=== PATIENT | male | born 1960 | race Caucasian/White ===

== ENCOUNTER 2024-12-20 14:52 | Outpatient (AMB) | payer OTHER, SELFPAY ==
--- OUTSIDE RECORDS SUMMARY | 2024-05-22 11:44 | XMS_ITS | Encounter Summary ---
Author Organization [facility] Address 100 [place] [address] Care Team Providers Care Flamer After Lasting Name Role Phone Vlad Archer MD Unavailable Angela Kuo MD Primary Care Provider Angel Cadena MD Unavailable [phone] Chase Tong DDS Unavailable [phone] Jeffy Chandler MD Unavailable Angela Kuo MD Unavailable [phone] Encounter Details Date Type Department Care Team (Late st Contact Info) Description 05/22/2024 10:44 AM EST Hospital Encounter [facility] [address] [place] [phone] Social History Tobacco Use Types Packs/Day Years Used Date Smoking Tobacco: Never Smokeless Tobacco: Never Alcohol Use Standard Drinks/Week Comments Not Currently 1 (1 standard drink = 0.6 oz pur e alcohol) social AHC Utilities Answer Date Recorded In the past 12 months has [employer], gas, oil, or water company threatened to shut off services in your home? No 12/08/2024 Social Connection and Isolat ion Panel [NHANES] Answer Date Recorded In a typical week, how many times do you talk on the phone with family, friends, or neighbors? More than three times a week 12/08/2024 Frequency of Social Gatherin gs with Friends and Family Not on file 12/08/2024 Attends Congregational Services Not on file 12/08 Active Member of Clubs or Organizations Not on f ile 12/08/2024 Attends Club or Organization Meetings Not on danya e 12/08/2024 Are you , , di vorced, , never , or living with a partner? 12/08/2024 AUDIT-C Answer Date Recorded Q1: How often do you have a drink containing alc ohol? Monthly or less 12/08/2024 Q2: How many drinks containi ng alcohol do you have on a typical day when you are drinking? 1 or 2 12/08/2024 Frequency of Binge Drinking Not on file 11/21 Overall Financial Resource Strain (CARDIA) Answe r Date Recorded How hard is it for you to pa y for the very basics like food, housing, medical care, and heating? Not hard at all 07/04/2024 PHQ-2 Answer Date Recorded PHQ-2 Total Score 0 01/20/2024 Hunger Vital Sign Answer Date Recorded Within the past 12 months, y ou worried that your food would run out before you got the money to buy more. Never true 12/09/19 25 Within the past 12 months, t he food you bought just didn't last and you didn't have money to get more. Never true 12/08/2024 PRAPARE - Transportation Answer Date Re corded In the past 12 months, has l ack of transportation kept you from medical appointments or from getting medications? No 11/21 In the past 12 months, has l ack of transportation kept you from meetings, work, or from getting things needed for daily living? No 12/08/2024 Housing Stability Vital Sign Answer Norman e Recorded In the last 12 months, was t here a time when you were not able to pay the mortgage or rent on time? No 12/08/2024 In the past 12 months, how m any times have you moved where you were living? 0 12/08/2024 At any time in the past 12 m [facility], were you homeless or living in a correction (including now)? No 12/08/2024 Physical Activity Answer Date Recorded On average, how many days pe r week do you engage in moderate to strenuous exercise (like a brisk walk)? 0 days 01/20/2024 On average, how many minutes do you exercise per day at this level? 0 min 01/20/2024 Education Answer Date Recorded What is the highest level of school you have completed or the highest degree you have received? 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 Answer Date of Assessment Author Monthly or less 12/08/2024 9:06 AM EDT Wan [facility]red[facility] [employer] * Q2: How many drinks containing alcohol do you have on a typical day when you are drinking? Answer Date of Assessment Author 1 or 2 12/08/2024 9:06 AM EDT [facility] [employer] documented as of this encounter Plan of Treatment Upcoming Encounters Date Type Department Care Team (Late st Contact Info) Description 01/30/2025 3:00 PM EDT Office Visit [facility] [place] 7 [facility] [address] [place] [phone] Jeffy Chandler MD [address] [place] [address] 04/26/2025 9:15 AM EST Office Visit [facility] 100 [facility] [address] [place] [phone] Angela Kuo MD 100 [facility] [address] [place] [address] documented as of this encounter Procedures Procedure Name Priority Date/Time Associated Diagnosis Comments XR CHEST 2 VIEWS STAT 05/22/2024 10:5 1 AM EST Acute cough documented in this encounter Results * XR Chest 2 views (05/22/2024 10:51 AM EST) Anatomical Region Laterality Modality Chest Computed Radiogr aphy 05/22/2024 10:5 2 AM EST Impressions 05/22/2024 10:52 AM EST 1. No radiographic sign of acute cardiopulmonary disease. Narrative 05/22/2024 10:52 AM EST XR CHEST 2 VIEWS 05/22/2024 10:52 AM r/o pneumonia, cough x 2 weeks COMPARISON: 04/15/2019 TECHNIQUE: Frontal and lateral views of the chest. FINDINGS: The lungs are clear. The heart is not enlarged. Mediastinal contours are within normal limits. No pleural effusion present. Skeletal structures are unremarkable. Procedure Note Osei Brewster MD - 05/22/2024 XR CHEST 2 VIEWS 05/22/2024 10:52 AM r/o pneumonia, cough x 2 weeks COMPARISON: 04/15/2019 TECHNIQUE: Frontal and lateral views of the chest. FINDINGS: The lungs are clear. The heart is not enlarged. Mediastinal contours arewithin normal limits. No pleural effusion present. Skeletal structuresare unremarkable. IMPRESSION: 1. No radiographic sign of acute cardiopulmonary disease. Smiley Alonzo IMG DIAGNOSTIC IMAGIN G ORDERABLES Final Result documented in this encounter Visit Diagnoses Not on filedocumented in this encounter Care Teams Flamer After Lasting Relationship Specialty Start Date End Date Angela Kuo MD [address] [place] [address] PCP - General Internal Medicine 12/14/18 Angela Kuo MD [address] [place] [address] PCP - [employer] Commercial Attributed 01/23/24 08/21/24 Vlad Archer MD Wind Turbine Service Technician Cardiovascular Disease 09/07/18 Angel Cadena MD [address] [address] Consulting Provider Surgery, Cardiac 04/07/19 Chase Tong DDS [facility] [place] [address] Dentist Dentistry 04/07/19 Jeffy Chandler MD [address] [place] [address] Primary Wind Turbine Service Technician Cardiovascular Disease 05/14/21 documented as of this encounter
[2024-12-20 14:55] VITALS: BP 84/62; PULSE 74; O2SAT 95; BMI 40.9
--- NOTE | 2024-12-20 14:55 | HO.NEPHOV ---
Vital Signs 12/20/24 14:55 12/20/24 15:17 Height 6 ft 3 in Weight 327 lb BMI 40.9 BP 84/62 L 100/60 Blood Pressure Location Rt brachial Rt brachial Position Sitting Sitting Pulse 74 Pulse Source Pulse Oximeter Pulse Oximetry (%) 95 Oxygen Delivery Method Room Air Intake Visit Reasons: ENP: Abnormal kidney function/ Conf Mail Superintendent Required: No Accompanied by: Self / Same As Patient Allergies No Known Allergies Allergy (Verified 12/20/24 14:57) Medication List - Last Reconciled 12/20/24 by Isaias Barakat MD acetaminophen (Tylenol) 650 mg PO Q4H PRN allopurinol 300 mg PO DAILY amlodipine 10 mg PO DAILY aspirin 81 mg PO DAILY epinephrine (EpiPen) 0.3 mg IM Q10M PRN furosemide (Lasix) 40 mg PO DAILY lisinopril 40 mg PO DAILY lovastatin 40 mg PO DAILY metoprolol tartrate 25 mg PO BID rosuvastatin 40 mg PO DAILY spironolactone 25 mg PO DAILY warfarin 5 mg PO DAILY HPI Comments Details: The patient is a 64-year-old male presenting with the evaluation of kidney function and management of peripheral edema. The patient reports a history of peripheral edema, initially managed with furosemide on an as-needed basis, escalating to daily use due to increased severity of swelling. In March of the previous year, the edema became severe, prompting the addition of spironolactone, which resolved the swelling within two weeks. The patient has a history of hypertension diagnosed approximately 20 years ago, managed with multiple antihypertensive medications, including amlodipine and lisinopril. Blood pressure readings have been stable post-heart surgery five years ago, with occasional concerns when readings exceed 130 mmHg systolic. The patient experienced episodes of angioedema, characterized by lip and tongue swelling, attributed to lisinopril, leading to its discontinuation. The patient was advised to resume lisinopril by a previous physician, despite the history of angioedema. The patient has a history of kidney stones, managed with allopurinol as a prophylactic measure, though the specific type of stones is unknown. The patient recalls the stones being large and requiring intervention for removal. The patient reports a history of sleep apnea, managed with a CPAP machine used nightly. The patient experienced an allergic reaction post-colonoscopy, characterized by hives and facial swelling, managed with Benadryl, leading to a syncopal episode due to dehydration. [facility] Medical History (Updated 12/20/24 @ 15:26 by Isaias Barakat MD) Aneurysm, ascending aorta Aortic stenosis with bicuspid valve Claudication Vitamin D deficiency, unspecified LVH (left ventricular hypertrophy) due to hypertensive disease Uric acid nephrolithiasis Abnormal results of kidney function studies Obstructive sleep apnea (adult) (pediatric) Cardiomegaly Impaired fasting glucose Pure hypercholesterolemia, unspecified Benign essential hypertension Aortic valve disorder Allergic urticaria Surgical History H/O aortic valve replacement Review of Systems Const Denies anorexia, Denies fever(s) and Denies weakness Eyes Denies blurry vision Card Denies no additional complaints and Denies dyspnea Resp Reports no additional complaints, Reports cough and Denies dyspnea GI Denies melena and Denies diarrhea Denies hematuria Musc Denies tingling Skin/Breast Denies rash Neuro Denies focal weakness, Denies tingling, Denies tremor(s) and Denies weakness Physical Exam Vital Signs: Last Vital Signs Pulse 74 12/20/24 14:55 BP 100/60 12/20/24 15:17 Pulse Ox 95 12/20/24 14:55 Oxygen Delivery Method Room Air 12/20/24 14:55 BMI result Body Mass Index 40.9 Const General: comfortable Nutritional Appearance: well nourished Orientation/consciousness: patient oriented x3 HEENT Head: No normal to inspection Mouth: moist mucous membranes Neck Neck: Yes supple and Yes no JVD Resp Auscultation: clear to auscultation bilaterally, no rales and rub present Cardio Jugular venous distension: no JVD Palpation: no palpable S3 and no palpable S4 Heart sounds: no rubs GI Palpation (GI): Soft to palpation and nontender Percussion: No Fluid wave present General: Yes no CVA tenderness Back/Spine/Pelvis Back: no CVA tenderness Skin General skin exam: no rashes or lesions noted Neuro General: patient oriented x3 Extrem General: Yes no pedal edema and No clubbing Assessment & Plan Assessment & Plan (1) Benign essential hypertension: Code(s): I10 - Essential (primary) hypertension Category: Medical (2) CKD (chronic kidney disease): Code(s): N18.9 - Chronic kidney disease, unspecified Category: Medical (3) Sleep apnea: Code(s): G47.30 - Sleep apnea, unspecified Category: Medical Plan The plan includes evaluating the cause of peripheral edema, considering cardiac, renal, or medication-related etiologies. Urine and blood tests will be conducted to assess kidney function and identify potential causes of edema. The patient's blood pressure management will be adjusted by temporarily discontinuing lisinopril for two days, followed by resuming at half the dose, to address low blood pressure and potential renal impact. The patient will be monitored for changes in blood pressure and kidney function, with follow-up scheduled in two weeks. An ultrasound will be arranged to evaluate kidney structure and rule out any abnormalities contributing to the patient's symptoms. The patient will also undergo uric acid level testing to assess the necessity of continuing allopurinol therapy. RTC after work up is completed Orders: Orders Comprehensive Met. Panel 1 Week G47.30 - Sleep apnea, unspecified, I10 - Essential (primary) hypertension, N18.9 - Chronic kidney disease, unspecified Creatinine Urine 1 Week G47.30 - Sleep apnea, unspecified, I10 - Essential (primary) hypertension, N18.9 - Chronic kidney disease, unspecified Uric Acid 1 Week G47.30 - Sleep apnea, unspecified, I10 - Essential (primary) hypertension, N18.9 - Chronic kidney disease, unspecified US renal BI 1 Week G47.30 - Sleep apnea, unspecified, I10 - Essential (primary) hypertension, N18.9 - Chronic kidney disease, unspecified Complete Blood Count no Diff 1 Week G47.30 - Sleep apnea, unspecified, I10 - Essential (primary) hypertension, N18.9 - Chronic kidney disease, unspecified Total Protein Urine Random 1 Week G47.30 - Sleep apnea, unspecified, I10 - Essential (primary) hypertension, N18.9 - Chronic kidney disease, unspecified UA and rflx microscopic 1 Week G47.30 - Sleep apnea, unspecified, I10 - Essential (primary) hypertension, N18.9 - Chronic kidney disease, unspecified Coding Level of Care Code New Pt Level 4 (06881) Diagnoses Benign essential hypertension I10 CKD (chronic kidney disease) N18.9 Sleep apnea G47.30
[2024-12-20 15:17] VITALS: BP 100/60
--- OUTSIDE RECORDS SUMMARY | 2024-12-20 15:36 | XMS_ITS | Clinical Summary ---
Author Organization [facility] Address [address] [facility] [address] Phone Care Team Providers Care Marble Cleaner Name Role Phone Angela Kuo MD Primary Care Provider [phone] Allergies Active Allergy Reactions Criticality Noted Date Comments Fish Containing Products Anaphylaxis High 05/25/2023 Lisinopril Swelling 05/25/2023 Wine Spirit Anaphylaxis High 05/25/2023 Medications allopurinoL (ZYLOPRIM) 300 mg tablet Take 1 tablet (300 mg total) by mouth 1 (one) time each day. 01/02/2022 Active amLODIPine (NORVASC) 10 mg tablet Take 1 tablet (10 mg total) by mouth 1 (one) time each day. 04/20/2023 Active lisinopril (PRINIVIL,ZESTRI L) 40 mg tablet Take 1 tablet (40 mg total) by mouth 1 (one) time each day. 10/20/2022 Active metoprolol tartrate (LOPRESSOR) 25 mg tablet TAKE 1 TABLET EVERY 12 HOURS AROUND THE CLOCK 02/16/2024 Active rosuvastatin (CRESTOR) 40 mg tablet Take 1 tablet (40 mg total) by mouth daily. 02/17/2024 Active warfarin (COUMADIN) 5 mg tablet TAKE 1 TABLET DAILY AT THE SAME TIME 02/16/2024 Active aspirin ([place] Chewable Aspirin) 81 mg chewable tablet Chew 1 tablet (81 mg total) 1 (one) time each day. 12/10/2014 Active furosemide (LASIX) 40 mg tablet Take 1 tablet (40 mg total) by mouth 1 (one) time each day. 07/02/2024 Active spironolactone (ALDACTONE) 25 mg tablet Take 1 tablet (25 mg total) by mouth 1 (one) time each day. 07/02/2024 Active Active Problems Problem Noted Date Diagnosed Date Syncope 06/29/2024 Medical History Medical History Date Comments Kidney stones DX:Kidney stones Hyperlipidemia DX:Hyperlipidemi a Hypertension DX:Hypertension Social History Tobacco Use Types Packs/Day Years Used Date Smoking Tobacco: Never Alcohol Use Standard Drinks/Week Comments No 0 (1 standard drink = 0.6 oz pur e alcohol) Sex and Gender Information Value Date Recorded Sex Assigned at Male 06/29/2024 8:27 PM EST Legal Sex Male 10:49 AM EST Gender Identity Male 06/29/2024 8:27 PM EST Sexual Orientation Choose not to disclose 2024 8:27 PM EST Obstetrics History Last Filed Vital Signs Vital Sign Reading Time Taken Comments Blood Pressure 115/64 06/30/2024 10:15 AM EST Pulse 73 06/30/2024 10:15 AM EST Temperature 37.1 C (98.7 F) 06/30/2024 7:50 AM EST Respiratory Rate 22 06/30/2024 10:15 AM EST Oxygen Saturation 94% 06/30/2024 10:15 AM EST Inhaled Oxygen Concentration - - Weight 136 kg (300 lb) 06/30/2024 7:50 AM EST Height 190.5 cm (6' 3 ) 06/30/2024 7:50 AM EST Body Mass Index 37.5 06/30/2024 7:50 AM EST Plan of Treatment Health Maintenance Due Date Last Done Comments Zoster Vaccines (1 of 2) 2009 RSV Immunization Adult Patients (1 - Risk 60-74 years 1-dose series) 2019 Cholesterol Screening (Lipid Panel) 01/18/2024 Colorectal Cancer Screening: Colonoscopy 01/18/2024 Hepatitis C Screening 01/18/2024 Social Influencers of Health Screening 01/18/2024 Falls Risk Assessment 2024 Depression Screening 05/24/2024 COVID-19 Vaccine ( season) 2024 03/07/2024, 02/09/2023, 02/17/2022, Additional history exists Influenza Vaccine (#1) 2025 , 02/09/2023, 03/07/2022, Additional history exists Hypertension/CHF/CAD Annual BMP Blood Test 06/30/2025 06/30/2024, 06/29/2024, 06/19/2024, Additional history exists DTaP,Tdap,and Td Vaccines (3 - Td or Tdap) 03/28/2026 03/28/2016, 12/10/2014 Pneumococcal Vaccine: 50+ Years Completed 01/20/2024 HIB Vaccines Aged Out No longer eligi ble based on patient's age to complete this topic HPV Vaccines Aged Out No longer eligi ble based on patient's age to complete this topic Hepatitis A Vaccines Aged Out No long er eligible based on patient's age to complete this topic Hepatitis B Vaccines Aged Out No long er eligible based on patient's age to complete this topic IPV Vaccines Aged Out No longer eligi ble based on patient's age to complete this topic MMR Vaccines Aged Out No longer eligi ble based on patient's age to complete this topic Meningococcal ACWY Vaccine Aged Out N o longer eligible based on patient's age to complete this topic Meningococcal B Vaccine Aged Out No l onger eligible based on patient's age to complete this topic RSV Immunization Patients Under 20 months Aged Out No longer eligible based on patient's age to complete this topic Varicella Vaccines Aged Out No longer eligible based on patient's age to complete this topic Procedures Procedure Name Priority Date/Time Associated Diagnosis Comments BASIC METABOLIC PANEL Routine 06/30/2024 7:11 AM EST from Last 3 Months or Most Recently Relevant to Health Maintenance Results * (ABNORMAL) Basic metabolic panel (06/30/2024 7:11 AM EST) Sodium 137 135 - 145 mmol/L LAB CHEMISTRY METHOD 06/30/2024 8:31 AM EST [facility] Potassium 4.3 3.5 - 5.1 mmol/L LAB CHEMISTRY METHOD 06/30/2024 8:31 AM EST [facility] Chloride 107 98 - 107 mmol/L LAB CHEMISTRY METHOD 06/30/2024 8:31 AM EST [facility] CO2 17(L) 24 - 32 mmol/L LAB CHEMISTRY METHOD 06/30/2024 8:31 AM EST [facility] Anion Gap 13 5 - 14 LAB CHEMISTRY METHOD 06/30/2024 8:31 AM EST [facility] Glucose 179(H) 70 - 99 mg/dL LAB CHEMISTRY METHOD 06/30/2024 8:31 AM EST [facility] BUN 30(H) 9 - 20 mg/dL LAB CHEMISTRY METHOD 06/30/2024 8:31 AM EST [facility] Creatinine 1.60(H) 0.70 - 1.30 mg/dL LAB CHEMISTRY METHOD 06/30/2024 8:31 AM EST [facility] eGFR 48(L) >=60 mL/min/1. 73m2 LAB CHEMISTRY METHOD 06/30/2024 8:31 AM EST [facility] Comment:Calculation based on the Chronic Kidney Disease Epidemiology Collaboration (CKD-EPI) equation refit without adjustment for race. BUN/Creatinine Ratio 18.8 12.0 - 20.0 LAB CHEMISTRY METHOD 06/30/2024 8:31 AM EST [facility] Calcium 9.0 8.4 - 10.2 mg/dL LAB CHEMISTRY METHOD 06/30/2024 8:31 AM EST [facility] Blood Venous blood specimen / Unknown Venipuncture / Unknown 06/30/2024 7:11 AM EST 06/30/2024 7:58 AM EST us Sophie Cathie Ruiz DO LAB BLOOD ORDERABLES Final Resul t [facility] [address] [place] [address], [place] [phone] from Last 3 Months or Most Recently Relevant to Health Maintenance Insurance [facility] Advance Directives * Full Code - Confirmed (Latest Code Status on File) Date Activated Date Inactivated Comments 06/29/2024 11:14 PM 06/30/2024 2:13 PM This code sta tus was ascertained in the following way: Code status discussion: discussion with patient To update the patient's code status, place a code status order. Do not modify or discontinue any currently active code status orders. Care Teams Marble Cleaner Relationship Specialty Start Date End Date Angela Kuo MD [address] [place] [address] PCP - General 05/24/23
--- OUTSIDE RECORDS SUMMARY | 2024-12-20 15:36 | XMS_ITS | Clinical Summary ---
Author Organization [facility] Address [address] [place] [address] Care Team Providers Care Mortgage Collector Name Role Phone Angela Kuo MD Primary Care Provider [phone]- [phone] Allergies Active Allergy Reactions Criticality Noted Date Comments Fish Anaphylaxis High 05/25/2023 Lisinopril Swelling 05/25/2023 Wine Anaphylaxis High 05/25/2023 Medications Medication Sig Dispensed Refills Start Date End Date Status allopurinol (ZYLOPRIM) 300 MG tablet TAKE 1 TABLET DAILY 0 01/04/2017 Active amLODIPine (NORVASC) tablet 10 mg TAKE 1 TABLET DAILY 0 01/04/2017 Active aspirin 81 MG tablet Aspirin 81 MG Oral Tablet Delayed Release ; Start Date: 12/10/2014; End Date: 0 12/10/2014 Active fenofibrate (TRICOR,LOFIBRA) tablet 54 mg TAKE 1 TABLET DAILY 0 12/30/2015 Active lovastatin (MEVACOR) 40 MG tablet Take 1 tablet (40 mg total) by mouth. 0 08/13/2016 Active warfarin (COUMADIN) 5 MG tablet Take 1 tablet (5 mg total) by mouth daily. 0 Active furosemide (LASIX) 20 MG tablet Take 1 tablet (20 mg total) by mouth daily. Wednesday, Wednesday, and Wednesday BID 0 Active metoprolol tartrate (LOPRESSOR) 25 MG tablet Take 1 tablet (25 mg total) by mouth 2 (two) times a day. 0 Active Active Problems Problem Noted Date Diagnosed Date Angio-edema, initial encounter 05/24/2023 Social History Tobacco Use Types Packs/Day Years Used Date Smoking Tobacco: Never Alcohol Use Standard Drinks/Week Comments No 0 (1 standard drink = 0.6 oz pur e alcohol) Sex and Gender Information Value Date Recorded Sex Assigned at Male 05/24/2023 3:28 AM EST Gender Identity Not on file Sexual Orientation Not on file Job Start Date Occupation Industry Not on file Not on file Not on file Last Filed Vital Signs Vital Sign Reading Time Taken Comments Blood Pressure 120/69 05/25/2023 7:48 AM EST Pulse 57 05/25/2023 7:48 AM EST Temperature 36.6 C (97.9 F) 05/25/2023 7:48 AM EST Respiratory Rate 18 05/25/2023 7:48 AM EST Oxygen Saturation 97% 05/25/2023 7:48 AM EST Inhaled Oxygen Concentration - - Weight 147.9 kg (326 lb) 05/24/2023 7:05 AM EST Height 190.5 cm (6' 3 ) 05/24/2023 7:05 AM EST Body Mass Index 40.75 05/24/2023 7:05 AM EST Plan of Treatment Health Maintenance Due Date Last Done Comments Hepatitis C Screening 1959 Depression Screening 1971 Preventative Health Evaluation 1977 Colon Cancer Screening (Colonoscopy) 2004 Shingrix-Zoster Vaccine (1 of 2) 2009 COVID-19 Vaccine ( season) 2024 02/09/2023, 02/17/2022, 08/27/2021, Additional history exists Fall Risk Assessment 2024 Pneumococcal Vaccine (1 of 1 - PCV) 2024 Influenza Vaccine (#1) 2025 , 02/17/2022, 03/04/2021, Additional history exists DTap / Tdap / Td (3 - Td or Tdap) 03/28/2026 03/28/2016, 12/10/2014 RSV Adult > 60+ Yrs or (1 - 1-dose 75+ series) 2034 Hepatitis B Vaccines Aged Out No long er eligible based on patient's age to complete this topic Pneumococcal Vaccine Aged Out No long er eligible based on patient's age to complete this topic RSV Ped < 20 months Aged Out No longe r eligible based on patient's age to complete this topic Advance Directives For more information, please contact: [phone] Latest Code Status on File Code Status Date Activated Date Inactivated Comments Full Code 05/24/2023 5:44 AM 05/25/2023 7:03 PM This co de status was ascertained in the following way: discussion with patient . Care Teams Mortgage Collector Relationship Specialty Start Date End Date Angela Kuo MD [address] [place] [address] PCP - General Internal Medicine 05/24/23
--- OUTSIDE RECORDS SUMMARY | 2024-12-20 15:36 | XMS_ITS ---
Author Name [facility] Organization Unknown Results Test Name/Text Value Interpretation Date Range Source Trigl SerPl-mCnc 206.0 mg/dL Above high normal 12/05/2024 - 150 [facility] LDLc SerPl Calc-mCnc 78.0 mg/dL (calc) Normal 12/05/2024 [facility] Cholest/HDLc SerPl 3.8 (calc) Normal 12/05/2024 - 5 [facility] Cholest SerPl-mCnc 147.0 mg/dL Normal 12/05/2024 - 200 [facility] HDLc SerPl-mCnc 39.0 mg/dL Below low normal 12/05/2024 - [facility] NonHDLc SerPl-mCnc 108.0 mg/dL (calc) Normal 12/05/2024 - 130 [facility] AST SerPl-cCnc 15.0 U/L Normal 12/05/2024 10 - 35 [facility] Sodium SerPl-sCnc 138.0 mmol/L Normal 12/05/2024 135 - 14 6 [facility] Albumin/Glob SerPl 1.7 (calc) Normal 12/05/2024 1 - 2.5 [facility] Prot SerPl-mCnc 6.5 g/dL Normal 12/05/2024 6.1 - 8.[address] Calcium SerPl-mCnc 9.5 mg/dL Normal 12/05/2024 8.6 - 10.3 [facility] Creat SerPl-mCnc 1.46 mg/dL Above high normal 12/05/2024 0.7 - 1.35 [facility] ALT SerPl-cCnc 15.0 U/L Normal 12/05/2024 9 - 46 [facility] eGFRcr SerPlBld CKD-EPI 2020 53.0 mL/min/1.73m2 Below low normal 12/05/2024 - [facility] Chloride SerPl-sCnc 104.0 mmol/L Normal 12/05/2024 98 - 1 10 [facility] Potassium SerPl-sCnc 4.4 mmol/L Normal 12/05/2024 3.5 - 5 .3 [facility] BUN SerPl-mCnc 30.0 mg/dL Above high normal 12/05/2024 7 - 2 5 [facility] Bilirub SerPl-mCnc 1.2 mg/dL Normal 12/05/2024 0.2 - 1.2 [facility] Glucose SerPl-mCnc 109.0 mg/dL Above high normal 12/05/2024 65 - 99 [facility] Globulin Ser Calc-mCnc 2.4 g/dL (calc) Normal 12/05/2024 1.9 - 3.7 [facility] Albumin SerPl-mCnc 4.1 g/dL Normal 12/05/2024 3.6 - 5.1 [facility] BUN/Creat SerPl 21.0 (calc) Normal 12/05/2024 6 - 22 [facility] ALP SerPl-cCnc 58.0 U/L Normal 12/05/2024 35 - 144 [facility] CO2 SerPl-sCnc 24.0 mmol/L Normal 12/05/2024 20 - 32 QU EST INR PPP 2.7 Above high normal 12/05/2024 Q [facility] Prothrombin time 26.8 sec Above high normal 12/05/2024 9 - 11.5 [facility] Prothrombin time 27.9 sec Above high normal 11/16/2024 9 - 11.5 [facility] INR PPP 2.8 Above high normal 11/16/2024 Q [facility] INR PPP 2.9 Above high normal 10/13/2024 Q [facility] Prothrombin time 28.3 sec Above high normal 10/13/2024 9 - 11.5 [facility] Cholest/HDLc SerPl 4.8 (calc) Normal 08/15/2024 - 5 [facility] HDLc SerPl-mCnc 46.0 mg/dL Normal 08/15/2024 - QU EST Trigl SerPl-mCnc 210.0 mg/dL Above high normal 08/15/2024 - 150 [facility] NonHDLc SerPl-mCnc 175.0 mg/dL (calc) Above high normal 08/15/2024 - 130 [facility] LDLc SerPl Calc-mCnc 140.0 mg/dL (calc) Above high normal 08/15/2024 [facility] Cholest SerPl-mCnc 221.0 mg/dL Above high normal 08/15/2024 - 200 [facility] Chloride SerPl-sCnc 103.0 mmol/L Normal 08/15/2024 98 - 1 10 [facility] AST SerPl-cCnc 12.0 U/L Normal 08/15/2024 10 - 35 [facility] T eGFRcr SerPlBld CKD-EPI 2020 57.0 mL/min/1.73m2 Below low normal 08/15/2024 - [facility] Albumin SerPl-mCnc 4.3 g/dL Normal 08/15/2024 3.6 - 5.1 [facility] Creat SerPl-mCnc 1.38 mg/dL Above high normal 08/15/2024 0.7 - 1.35 [facility] Potassium SerPl-sCnc 4.4 mmol/L Normal 08/15/2024 3.5 - 5 .3 [facility] Globulin Ser Calc-mCnc 2.6 g/dL (calc) Normal 08/15/2024 1.9 - 3.7 [facility] ALT SerPl-cCnc 13.0 U/L Normal 08/15/2024 9 - 46 [facility] Albumin/Glob SerPl 1.7 (calc) Normal 08/15/2024 1 - 2.5 [facility] Sodium SerPl-sCnc 138.0 mmol/L Normal 08/15/2024 135 - 14 6 [facility] Glucose SerPl-mCnc 102.0 mg/dL Above high normal 08/15/2024 65 - 99 [facility] Prot SerPl-mCnc 6.9 g/dL Normal 08/15/2024 6.1 - 8.[address] BUN/Creat SerPl 22.0 (calc) Normal 08/15/2024 6 - 22 [facility] Bilirub SerPl-mCnc 1.0 mg/dL Normal 08/15/2024 0.2 - 1.2 [facility] ALP SerPl-cCnc 57.0 U/L Normal 08/15/2024 35 - 144 [facility] Calcium SerPl-mCnc 9.7 mg/dL Normal 08/15/2024 8.6 - 10.3 [facility] BUN SerPl-mCnc 30.0 mg/dL Above high normal 08/15/2024 7 - 2 5 [facility] CO2 SerPl-sCnc 28.0 mmol/L Normal 08/15/2024 20 - 32 [facility] EST Prothrombin time 22.4 sec Above high normal 08/15/2024 9 - 11.5 [facility] INR PPP 2.2 Above high normal 08/15/2024 Q [facility] MCHC RBC Auto-EntMCnc 33.2 g/dL Normal 08/15/2024 32 - 36 [facility] RBC Auto 98.5 fL Normal 08/15/2024 80 - 100 [facility] RBC # Bld Auto 4.65 Million/uL Normal 08/15/2024 4.2 - 5. 8 [facility] PMV Bld Garrick-Juan 10.9 fL Normal 08/15/2024 7.5 - 12.5 [facility] RDW RBC Auto 13.0 % Normal 08/15/2024 11 - 15 [facility] Hct VFr Bld Auto 45.8 % Normal 08/15/2024 38.5 - 50 [facility] Hgb Bld-mCnc 15.2 g/dL Normal 08/15/2024 13.2 - 17.1 [facility] MCH RBC Qn Auto 32.7 pg Normal 08/15/2024 27 - [address] Platelet # Bld Auto 165.0 Thousand/uL Normal 08/15/2024 140 - 400 [facility] WBC # Bld Auto 8.4 Thousand/uL Normal 08/15/2024 3.8 - 10 .8 [facility] INR PPP 1.8 Above high normal 07/17/2024 Q [facility] Prothrombin time 17.8 sec Above high normal 07/17/2024 9 - 11.5 [facility] Magnesium SerPl-mCnc 1.8 mg/dL Normal 06/30/2024 1.7 - 2. 8 [facility] Chloride SerPl-sCnc 107.0 mmol/L Normal 06/30/2024 98 - 1 07 [facility] Anion Gap SerPl-sCnc 13.0 Normal 06/30/2024 5 - 14 [facility] Calcium SerPl-mCnc 9.0 mg/dL Normal 06/30/2024 8.4 - 10.2 [facility] Creat SerPl-mCnc 1.6 mg/dL Above high normal 06/30/2024 0.7 - 1.3 [facility] eGFRcr SerPlBld CKD-EPI 2020 48.0 mL/min/1.73m2 Below low normal 06/30/2024 - [facility] Potassium SerPl-sCnc 4.3 mmol/L Normal 06/30/2024 3.5 - 5 .1 [facility] CO2 SerPl-sCnc 17.0 mmol/L Below low normal 06/30/2024 24 - 32 [facility] Sodium SerPl-sCnc 137.0 mmol/L Normal 06/30/2024 135 - 14 5 [facility] Glucose SerPl-mCnc 179.0 mg/dL Above high normal 06/30/2024 70 - 99 [facility] BUN SerPl-mCnc 30.0 mg/dL Above high normal 06/30/2024 9 - 2 0 [facility] BUN/Creat SerPl 18.8 Normal 06/30/2024 12 - 20 [facility] RDW RBC Auto-Rto 14.6 % Normal 06/30/2024 12.1 - 17.7 [facility] MCV RBC Auto 96.9 FL Normal 06/30/2024 78 - 100 [facility] Platelet # Bld Auto 177.0 K/mcL Normal 06/30/2024 150 - 4 50 [facility] MCHC RBC Auto-mCnc 33.9 g/dL Normal 06/30/2024 32 - 36 [facility] Hct VFr Bld Auto 47.0 % Normal 06/30/2024 40 - 54 [facility] WBC # Bld Auto 7.6 K/mcL Normal 06/30/2024 4 - 10.5 [facility] Hgb Bld-mCnc 15.9 g/dL Normal 06/30/2024 13.5 - 18 [facility] MCH RBC Qn Auto 32.9 pcg Normal 06/30/2024 25 - 33 [facility] RBC # Bld Auto 4.85 M/mcL Normal 06/30/2024 4.7 - 6 [facility] PMV Bld Auto 8.9 FL Normal 06/30/2024 7.4 - 11.4 [facility] Bld gp Ab Scn SerPl Ql Negative Normal 06/30/2024 [facility] ABO Group Bld O Normal 06/30/2024 [facility] Rh Bld Negative Normal 06/30/2024 [facility] N PT Bld 17.5 sec Above high normal 06/30/2024 10.5 - 13.3 [facility] INR PPP 1.5 Above high normal 06/30/2024 0.8 - 1.1 [facility] nRBC/100 WBC Bld Manual-Rto 1.0 /100 WBC Normal 06/30/2024 0 - 1 [facility] Neuts Seg # Bld Manual 9.86 K/mcL Above high normal 06/30/2024 1.8 - 7.8 [facility] Lymphocytes # Bld Manual 1.53 K/mcL Normal 06/30/2024 1 - 3.2 [facility] Monocytes # Bld Manual 1.36 K/mcL Above high normal 06/30/2024 0 - 0.8 [facility] Lymphocytes/leuk NFr Bld Manual 9.0 % Below low normal 06/30/2024 20 - 48 [facility] Neuts Band # Bld Manual 4.08 K/mcL Normal 06/30/2024 [facility] Microcytes Present Present Normal 06/30/2024 [facility] Macrocytes Present Present Normal 06/30/2024 [facility] Neuts Band/leuk NFr Bld Manual 24.0 % Above high normal 06/30/2024 0 - 15 [facility] Ovalocytes Bld Ql Smear Present Normal 06/30/2024 [facility] Neuts Seg/leuk NFr Bld Manual 58.0 % Normal 06/30/2024 44 - 74 [facility] Monocytes/leuk NFr Bld Manual 8.0 % Normal 06/30/2024 2 - 12 [facility] Polychromasia Present Occasional Normal 06/30/2024 [facility] Metamyelocytes # Bld Manual 0.17 K/mcL Above high normal 06/30/2024 - [facility] Metamyelocytes/leuk NFr Bld Manual 1.0 % Above high normal 06/30/2024 - [facility] Lg Platelets Bld Ql Auto Normal Normal 06/30/2024 [facility] Platelet Clump Present Present Normal 06/30/2024 [facility] Absolute Nucleated RBC 0.17 K/mcL Above high normal 06/30/2024 - [facility] MCH RBC Qn Auto 32.5 pcg Normal 06/30/2024 25 - 33 [facility] PMV Bld Auto 9.0 FL Normal 06/30/2024 7.4 - 11.4 [facility] Hgb Bld-mCnc 18.7 g/dL Above high normal 06/30/2024 13.5 - 1 8 [facility] Hct VFr Bld Auto 56.4 % Above high normal 06/30/2024 40 - 54 [facility] RBC # Bld Auto 5.75 M/mcL Normal 06/30/2024 4.7 - 6 [facility] RDW RBC Auto-Rto 14.9 % Normal 06/30/2024 12.1 - 17.7 [facility] MCV RBC Auto 98.1 FL Normal 06/30/2024 78 - 100 [facility] Platelet # Bld Auto 246.0 K/mcL Normal 06/30/2024 150 - 4 50 [facility] WBC # Bld Auto 17.0 K/mcL Above high normal 06/30/2024 4 - 1 0.5 [facility] MCHC RBC Auto-mCnc 33.1 g/dL Normal 06/30/2024 32 - 36 [facility] BNP SerPl-mCnc 160.0 pcg/mL Normal 06/30/2024 - C [facility] Troponin I SerPl HS-mCnc 11.0 ng/L Normal 06/30/2024 0 - 20 [facility] BUN/Creat SerPl 16.7 Normal 06/30/2024 12 - 20 [facility] Creat SerPl-mCnc 1.8 mg/dL Above high normal 06/30/2024 0.7 - 1.3 [facility] Sodium SerPl-sCnc 140.0 mmol/L Normal 06/30/2024 135 - 14 5 [facility] Calcium SerPl-mCnc 9.3 mg/dL Normal 06/30/2024 8.4 - 10.2 [facility] Glucose SerPl-mCnc 184.0 mg/dL Normal 06/30/2024 70 - 199 [facility] eGFRcr SerPlBld CKD-EPI 2020 41.0 mL/min/1.73m2 Below low normal 06/30/2024 - [facility] CO2 SerPl-sCnc 20.0 mmol/L Below low normal 06/30/2024 24 - 32 [facility] Anion Gap SerPl-sCnc 16.0 Above high normal 06/30/2024 5 - 14 [facility] BUN SerPl-mCnc 30.0 mg/dL Above high normal 06/30/2024 9 - 2 0 [facility] Chloride SerPl-sCnc 104.0 mmol/L Normal 06/30/2024 98 - 1 07 [facility] Potassium SerPl-sCnc 3.8 mmol/L Normal 06/30/2024 3.5 - 5 .1 [facility] Glucose SerPl-mCnc 127.0 mg/dL Above high normal 06/20/2024 65 - 99 [facility] Potassium SerPl-sCnc 4.2 mmol/L Normal 06/20/2024 3.5 - 5 .3 [facility] CO2 SerPl-sCnc 26.0 mmol/L Normal 06/20/2024 20 - 32 [facility] Chloride SerPl-sCnc 103.0 mmol/L Normal 06/20/2024 98 - 1 10 [facility] BUN SerPl-mCnc 30.0 mg/dL Above high normal 06/20/2024 7 - 2 5 [facility] Calcium SerPl-mCnc 9.9 mg/dL Normal 06/20/2024 8.6 - 10.3 [facility] Creat SerPl-mCnc 1.21 mg/dL Normal 06/20/2024 0.7 - 1.35 [facility] eGFRcr SerPlBld CKD-EPI 2020 66.0 mL/min/1.73m2 Normal 06/20/2024 - [facility] Sodium SerPl-sCnc 138.0 mmol/L Normal 06/20/2024 135 - 14 6 [facility] BUN/Creat SerPl 25.0 (calc) Above high normal 06/20/2024 6 - 22 [facility] INR PPP 2.7 Above high normal 06/20/2024 Q [facility] Prothrombin time 26.3 sec Above high normal 06/20/2024 9 - 11.5 [facility] Troponin I SerPl HS-mCnc 6.0 ng/L Normal 03/27/2024 0 - 20 [facility] Troponin I SerPl HS-mCnc 6.0 ng/L Normal 03/27/2024 0 - 20 [facility] AST SerPl-cCnc 18.0 unit/L Normal 03/27/2024 5 - 40 [facility] Calcium SerPl-mCnc 9.1 mg/dL Normal 03/27/2024 8.4 - 10.2 [facility] ALT SerPl-cCnc 15.0 unit/L Normal 03/27/2024 7 - 52 [facility] Bilirub SerPl-mCnc 1.8 mg/dL Above high normal 03/27/2024 0. 3 - 1 [facility] Sodium SerPl-sCnc 138.0 mmol/L Normal 03/27/2024 135 - 14 5 [facility] BUN/Creat SerPl 14.8 Normal 03/27/2024 12 - 20 [facility] ALP SerPl-cCnc 62.0 unit/L Normal 03/27/2024 34 - 104 [facility] Chloride SerPl-sCnc 103.0 mmol/L Normal 03/27/2024 98 - 1 07 [facility] eGFRcr SerPlBld CKD-EPI 2020 66.0 mL/min/1.73m2 Normal 03/27/2024 - [facility] Glucose SerPl-mCnc 91.0 mg/dL Normal 03/27/2024 70 - 199 [facility] Potassium SerPl-sCnc 3.8 mmol/L Normal 03/27/2024 3.5 - 5 .1 [facility] Prot SerPl-mCnc 7.5 g/dL Normal 03/27/2024 6.4 - 8.5 [facility] Anion Gap SerPl-sCnc 7.0 Normal 03/27/2024 5 - 14 [facility] BUN SerPl-mCnc 18.0 mg/dL Normal 03/27/2024 9 - 20 [facility] Albumin SerPl-mCnc 4.3 g/dL Normal 03/27/2024 3.5 - 5 [facility] CO2 SerPl-sCnc 28.0 mmol/L Normal 03/27/2024 24 - 32 [facility] Creat SerPl-mCnc 1.22 mg/dL Normal 03/27/2024 0.7 - 1.3 [facility] BNP SerPl-mCnc 50.0 pcg/mL Normal 03/27/2024 0 - 100 [facility] Monocytes # Bld Auto 1.01 K/mcL Above high normal 03/27/2024 0 - 0.8 [facility] Eosinophil/leuk NFr Bld Auto 2.8 % Normal 03/27/2024 0 - 6 [facility] Neutrophils # Bld Auto 5.96 K/mcL Normal 03/27/2024 1.8 - 7.8 [facility] WBC # Bld Auto 9.3 K/mcL Normal 03/27/2024 4 - 10.5 [facility] RBC # Bld Auto 4.87 M/mcL Normal 03/27/2024 4.7 - 6 [facility] Platelet # Bld Auto 193.0 K/mcL Normal 03/27/2024 150 - 4 50 [facility] Monocytes/leuk NFr Bld Auto 10.9 % Normal 03/27/2024 2 - 12 [facility] MCH RBC Qn Auto 31.8 pcg Normal 03/27/2024 25 - 33 [facility] Neutrophils/leuk NFr Bld Auto 64.2 % Normal 03/27/2024 44 - 74 [facility] RDW RBC Auto-Rto 13.2 % Normal 03/27/2024 12.1 - 17.7 [facility] PMV Bld Auto 10.5 FL Normal 03/27/2024 7.4 - 11.4 [facility] Basophils # Bld Auto 0.07 K/mcL Normal 03/27/2024 0 - 0.2 [facility] Hgb Bld-mCnc 15.5 g/dL Normal 03/27/2024 13.5 - 18 [facility] MCHC RBC Auto-mCnc 33.4 g/dL Normal 03/27/2024 32 - 36 [facility] Lymphocytes/leuk NFr Bld Auto 21.0 % Normal 03/27/2024 20 - 48 [facility] Eosinophil # Bld Auto 0.26 K/mcL Normal 03/27/2024 0 - 0.5 [facility] Lymphocytes # Bld Auto 1.95 K/mcL Normal 03/27/2024 1 - 3.2 [facility] Basophils/leuk NFr Bld Auto 0.8 % Normal 03/27/2024 0 - 2 [facility] MCV RBC Auto 95.3 FL Normal 03/27/2024 78 - 100 [facility] Hct VFr Bld Auto 46.4 % Normal 03/27/2024 40 - 54 [facility] GLUCOSE SERPL MCNC 141.0 mg/dL Normal 05/25/2023 70 - 199 [facility] BUN SERPL MCNC 23.0 mg/dL Above high normal 05/25/2023 9 - 2 0 [facility] SODIUM SERPL SCNC 140.0 mmol/L Normal 05/25/2023 135 - 14 5 [facility] Glomerular filtration rate/1.73 sq M. predicted 75.0 Normal 05/25/2023 60 - [facility] ANION GAP SERPL SCNC 12.0 mmol/L Normal 05/25/2023 5 - 14 [facility] CREAT SERPL MCNC 1.1 mg/dL Normal 05/25/2023 0.7 - 1.3 [facility] POTASSIUM SERPL SCNC 4.2 mmol/L Normal 05/25/2023 3.5 - 5 .1 [facility] CALCIUM SERPL MCNC 9.4 mg/dL Normal 05/25/2023 8.4 - 10.2 [facility] CHLORIDE SERPL SCNC 108.0 mmol/L Above high normal 98 - 107 [facility] HCO3 SER SCNC 20.0 mmol/L Below low normal 05/25/2023 24 - 3 2 [facility] HCT VFR BLD AUTO 45.5 % Normal 05/25/2023 40 - 54 [facility] WBC NO. BLD AUTO 13.2 K/uL Above high normal 05/25/2023 4 - 10.5 [facility] RDW RBC AUTO RTO 13.8 % Normal 05/25/2023 12.1 - 17.7 [facility] MCHC RBC AUTO MCNC 33.1 g/dL Normal 05/25/2023 32 - 36 [facility] MCV RBC AUTO 96.8 fL Normal 05/25/2023 78 - 100 [facility] PMV BLD AUTO 9.3 fL Normal 05/25/2023 7.4 - 11.4 [facility] HGB BLD MCNC 15.0 g/dL Normal 05/25/2023 13.5 - 18 [facility] RBC NO. BLD AUTO 4.7 M/uL Normal 05/25/2023 4.7 - 6 [facility] PLATELET NO. BLD AUTO 161.0 K/uL Normal 05/25/2023 150 - 450 [facility] MCH RBC QN AUTO 32.0 pg Normal 05/25/2023 25 - 33 [facility] PT TIME PPP 24.0 sec Above high normal 05/24/2023 10.5 - 13.3 [facility] INR PPP 2.0 Above high normal 05/24/2023 0.8 - 1.1 [facility] WBC NO. BLD AUTO 8.6 K/uL Normal 05/24/2023 4 - 10.5 CT [facility] PMV BLD AUTO 9.3 fL Normal 05/24/2023 7.4 - 11.4 [facility] RBC NO. BLD AUTO 5.19 M/uL Normal 05/24/2023 4.7 - 6 [facility] MCV RBC AUTO 95.9 fL Normal 05/24/2023 78 - 100 [facility] EOSINOPHIL NO. BLD AUTO 0.3 K/uL Normal 05/24/2023 0 - 0.5 [facility] NEUTROPHILS NO. BLD AUTO 4.2 K/uL Normal 05/24/2023 1.8 - 7.8 [facility] EOSINOPHIL NFR BLD AUTO 3.0 % Normal 05/24/2023 0 - 6 [facility] BASOPHILS IN BLOOD BY AUTOMATED COUNT 0.0 K/uL Normal 05/24/2023 0 - 0.2 [facility] LYMPHOCYTES NFR BLD AUTO 35.2 % Normal 05/24/2023 20 - 48 [facility] HGB BLD MCNC 16.8 g/dL Normal 05/24/2023 13.5 - 18 [facility] RDW RBC AUTO RTO 14.0 % Normal 05/24/2023 12.1 - 17.7 [facility] MONOCYTES NO. BLD AUTO 1.0 K/uL Above high normal 05/24/2023 0 - 0.8 [facility] MONOCYTES NFR BLD AUTO 12.0 % Normal 05/24/2023 2 - 12 [facility] DIFFERENTIAL TYPE AUTOMATED Normal 05/24/2023 C [facility] PLATELET NO. BLD AUTO 170.0 K/uL Normal 05/24/2023 150 - 450 [facility] MCHC RBC AUTO MCNC 33.8 g/dL Normal 05/24/2023 32 - 36 [facility] MCH RBC QN AUTO 32.4 pg Normal 05/24/2023 25 - 33 [facility] BASOPHILS NFR BLD AUTO 0.4 % Normal 05/24/2023 0 - 2 [facility] HCT VFR BLD AUTO 49.8 % Normal 05/24/2023 40 - 54 [facility] LYMPHOCYTES NO. BLD AUTO 3.0 K/uL Normal 05/24/2023 1 - 3.2 [facility] NEUTROPHILS NFR BLD AUTO 49.4 % Normal 05/24/2023 44 - 74 [facility] CALCIUM SERPL MCNC 9.4 mg/dL Normal 05/24/2023 8.4 - 10.2 [facility] CREAT SERPL MCNC 1.3 mg/dL Normal 05/24/2023 0.7 - 1.3 [facility] BUN SERPL MCNC 28.0 mg/dL Above high normal 05/24/2023 9 - 2 0 [facility] Glomerular filtration rate/1.73 sq M. predicted 61.0 Normal 05/24/2023 60 - [facility] HCO3 SER SCNC 24.0 mmol/L Normal 05/24/2023 24 - 32 [facility] SODIUM SERPL SCNC 140.0 mmol/L Normal 05/24/2023 135 - 14 5 [facility] POTASSIUM SERPL SCNC 3.4 mmol/L Below low normal 05/24/2023 3.5 - 5.1 [facility] ANION GAP SERPL SCNC 12.0 mmol/L Normal 05/24/2023 5 - 14 [facility] GLUCOSE SERPL MCNC 156.0 mg/dL Normal 05/24/2023 70 - 199 [facility] CHLORIDE SERPL SCNC 104.0 mmol/L Normal 05/24/2023 98 - 1 07 [facility] History of Medication Use Medication Directions Dispensed Refills Start Date End Date Status spironolactone (ALDACTONE) 25 mg tablet Take 1 tablet (25 mg total) by mouth 1 (one) time each day. 06/30/19 active famotidine (PF) (PEPCID) injection 20 mg 20 mg, intravenous, Administer over 2 Minutes, Once, On Kristina 06/29/24 at 1952, For 1 dose 5 06/30/19 completed iopamidoL (ISOVUE-370) 370 mg iodine /mL (76 %) injection 120 mL 120 mL, intravenous, Once in imaging, Starting on Kristina 06/29/24 at 2108, For 1 dose 5 06/30/19 completed lactated Ringer's infusion 100 mL/hr, intravenous, Continuous, Starting on Kristina 06/29/24 at 2315, For 10 hours 06/30/19 completed methylPREDNISolone sodium succ (SOLU-Medrol) 125 mg injection - ADS Override Pull Starting on Kristina 06/29/24 at 2010, For 1 dose, Created by cabinet override Reconstitute each 125 mg vial with 2 mL sterile water for injection to a concentration of 62.5 mg/mL. 06/30/19 completed methylPREDNISolone sodium succ (SOLU-Medrol) injection 125 mg 125 mg, intravenous, Once, On Kristina 06/29/24 at 1950, For 1 dose, Reconstitute each 125 mg vial with 2 mL sterile water for injection to a concentration of 62.5 mg/mL. 06/30/19 completed sodium chloride 0.9 % bolus 1,000 mL 1,000 mL, intravenous, at 2,000 mL/hr, Administer over 30 Minutes, Once, On Kristina 06/29/24 at 1952, For 1 dose 5 06/30/19 completed sodium chloride 0.9 % flush 10 mL 10 mL, intravenous, Once, On Kristina 06/29/24 at 2109, For 1 dose 5 06/30/19 completed sodium chloride 0.9 % intravenous solution 50 mL 50 mL, intravenous, Once in imaging, Starting on Kristina 06/29/24 at 2108, For 1 dose 5 06/30/19 25 completed acetaminophen (TYLENOL) tablet 650 mg 650 mg, oral, Every 6 hours PRN, mild pain, moderate pain, headaches, fever - temperature GREATER than 38 C (100.4 F), Starting on Kristina 06/29/24 at 2313 5 active allopurinoL (ZYLOPRIM) tablet 300 mg 300 mg, oral, Daily, First dose on Wed06/30/24 at 0900 5 active atorvastatin (LIPITOR) tablet 80 mg 80 mg, oral, Daily, First dose on Wed06/30/24 at 0900 5 active metoprolol tartrate (LOPRESSOR) tablet 25 mg 25 mg, oral, 2 times daily, First dose on Kristina 06/29/24 at 2318 5 active ondansetron ODT (ZOFRAN-ODT) disintegrating tablet 4 mg [Order 1 Start] Name: ondansetron ODT (ZOFRAN-ODT) disintegrating tablet 4 mg Signed Summary: 4 mg, oral, Every 8 hours PRN, vomiting, nausea, Starting on Kristina 06/29/24 at 2313, -Give IV if patient is unable to take orally. -If inadequate response within 30 minutes, proceed to next-line agent or contac 5 active furosemide (LASIX) 40 mg tablet Take 1 tablet (40 mg total) by mouth 1 (one) time each day. 5 06/30/19 25 active furosemide (LASIX) 40 MG tablet Take 1 tablet (40 mg total) by mouth daily. TAKE 1 TABLETS DAILY NEEDED FOR EDEMA 5 active polyethylene glycol-electrolytes (NuLYTELY, TRILYTE) 420 g solution Take as directed for Colonoscopy/GI Procedure. See administration instructions. 4 active amoxicillin-clavulanat e (AUGMENTIN) 875-125 MG per tablet Take 1 tablet by mouth 2 (two) times a day. 4 05/30/19 25 active predniSONE (DELTASONE) 10 MG tablet Take 3 tablets (30 mg total) by mouth daily. In the AM With food. 12/30/202 4 05/28/19 25 active rosuvastatin (CRESTOR) 40 mg tablet Take 1 tablet (40 mg total) by mouth daily. 4 active metoprolol tartrate (LOPRESSOR) 25 mg tablet TAKE 1 TABLET EVERY 12 HOURS AROUND THE CLOCK 4 active warfarin (COUMADIN) 5 mg tablet TAKE 1 TABLET DAILY AT THE SAME TIME 4 active EPINEPHrine 0.3 mg/0.3 mL IJ auto-injection INJECT 0.3 ML (0.3 MG TOTAL) INTO THE MUSCLE ONCE FOR 1 DOSE 4 active amLODIPine (NORVASC) 10 MG tablet Take 1 tablet (10 mg total) by mouth daily. 3 active amLODIPine (NORVASC) tablet 10 mg 3 active furosemide (LASIX) 20 MG tablet Take 1 tablet (20 mg total) by mouth daily as needed (edema). Edema. 3 active lisinopril (PRINIVIL,ZeSTRIL) 40 MG tablet Take 1 tablet (40 mg total) by mouth daily. 3 active lisinopril (PRINIVIL,ZESTRIL) 40 mg tablet Take 1 tablet (40 mg total) by mouth 1 (one) time each day. 3 active furosemide (Lasix) 20 MG tablet TAKE 2 TABLETS DAILY NEEDED FOR EDEMA. 2 active allopurinol (ZYLOPRIM) 300 MG tablet Take 1 tablet (300 mg total) by mouth daily. 2 active allopurinoL (ZYLOPRIM) 300 mg tablet Take 1 tablet (300 mg total) by mouth 1 (one) time each day. 2 active acetaminophen (TYLENOL) 325 MG tablet Take 2 tablets (650 mg total) by mouth 4 times daily (every 6 hours) as needed for mild pain, moderate pain, headaches or fever. 9 active aspirin 81 MG tablet Aspirin 81 MG Oral Tablet Delayed Release ; Start Date: 12/10/2014; End Date: 5 active aspirin chewable tablet 81 mg 81 mg, oral, Daily, First dose on Wed06/30/24 at 0900 5 active Allergies Allergen Reaction Severity Comment Documented Date Source Statu s WINE SPIRIT ANAPHYLAXIS 05/25/2023 [facility] ac tive FISH CONTAINING PRODUCTS ANAPHYLAXIS [facility] LISINOPRIL SWELLING [facility] Problems Problem Status Onset Date Problem Type Date of Resolution Source Syncope active 6 ProblemAct [facility] Gastrointestinal hemorrhage associated with anorectal source active EncounterDiagnosisAct [facility] Deep vein thrombosis (DVT) of proximal vein of left lower extremity, unspecified chronicity (CMS/HCC) active EncounterDiagnosisAct [facility] Congestive heart failure, unspecified HF chronicity, unspecified heart failure type (CMS/HCC) active EncounterDiagnosisAct [facility] Allergic urticaria active 2013-07-22 9 [facility] LVH (left ventricular hypertrophy) due to hypertensive disease, without heart failure active 2018-04-23 9 ProblemAct [facility] Claudication active 2018-08-22 5 ProblemAct [facility] Cardiomegaly active 2013-07-23 4 ProblemAct [facility] Class 3 severe obesity due to excess calories with serious comorbidity and body mass index (BMI) of 40.0 to 44.9 in adult active 3 ProblemAct [facility] Aortic stenosis with bicuspid valve active 6 ProblemAct [facility] Aortic valve disorder active 2013-07-23 4 ProblemAct [facility] Vitamin D deficiency active 4 ProblemAct [facility] Localized edema active 5 ProblemAct [facility] Uric acid nephrolithiasis active 2013-07-23 4 ProblemAct [facility] Pure hypercholesterolemia active 2014-11-22 0 ProblemAct [facility] Obstructive sleep apnea syndrome active 2013-07-23 4 [facility] S/P ascending aortic replacement active 2019-04-23 1 ProblemAct [facility] Ascending aortic aneurysm active 6 ProblemAct [facility] S/P AVR (aortic valve replacement) active 2019-03-25 3 ProblemAct [facility] Nonspecific abnormal results of kidney function study active 2013-07-22 9 ProblemAct [facility] Impaired fasting glucose active 2013-07 9 ProblemAct [facility] Benign essential hypertension active 2014-11-22 0 ProblemAct [facility] Immunizations Vaccine Date Source Lot Number Status Pneumococcal Conjugate 20-Valent 01/20/2024 [facility] [id number] completed Influenza, Quadrivalent (FLU CELVAX) MDCK, Preservative Free IM 02/09/2023 [facility] [id number] completed Influenza, Unspecified 03/07/2022 [facility] co mpleted Influenza, Quadrivalent (FLU CELVAX) MDCK, Preservative Free IM 02/17/2022 [facility] [id number] completed Influenza, Quadrivalent (FLU ARIX, AFLURIA, FLULAVAL, FLUZONE) Preservative Free IM 03/04/2021 [facility] [id number] completed Influenza Inactivated/Split Preservative Free IM 03/10/2019 [facility] [id number] completed Tdap 03/28/2016 [facility] [id number] completed Tdap 12/10/2014 [facility] [id number] completed Encounters Encounter Type Encounter Reason Primary Diagnosis Location Date Ambulatory Hyperlipidemia Hyperlipidemia [place] 12/08/2024 Ambulatory Presence of prosthetic heart valve Presence of prosthetic heart valve [place] 08/01/2024 Ambulatory Hyperlipidemia Hyperlipidemia [place] 07/21/2024 [facility] Hemorrhage of an us and rectum [facility] 06/29/2024 Ambulatory COLON COLON [place], [facility] 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 (current) use of anticoagulants [facility] 01/20/2024 Ambulatory Presence of prosthetic heart valve Presence of prosthetic heart valve [facility] 08/12/2023 Ambulatory Anaphylactic shock, unspecified, initial encounter Anaphylactic shock, unspecified, initial encounter [facility] 07/02/2023 Ambulatory Anaphylactic shock, unspecified, subsequent encounter Anaphylactic shock, unspecified, subsequent encounter [facility] 06/17/2023 Inpatient Angioneurotic edema, initial encounter Angioneurotic edema, initial encounter [facility] 05/24/2023 Ambulatory Pure hypercholesterolemia, unspecified Pure hypercholesterolemia, unspecified [facility] 01/19/2023 Ambulatory Presence of prosthetic heart valve [facility] 12/01/2022 Ambulatory Pure hypercholesterolemia, unspecified [facility] 08/04/2022 Ambulatory Presence of prosthetic heart valve [facility] 06/02/2022 Ambulatory Presence of prosthetic heart valve [facility] 05/14/2022 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 [facility] 02/02/2022 Ambulatory Essential (prima ry) hypertension [facility] 11/12/2021 Ambulatory Hyperlipidemia, unspecified [facility] 07/31/2021 Ambulatory Essential (prima ry) hypertension [facility] 05/14/2021 Ambulatory Presence of prosthetic heart valve [facility] 05/01/2021 Ambulatory Sleep apnea, unspecified [facility] 04/04/2021 Care Team Organization Name Specialty Phone Email Start Date End [employer] [facility] Primary Care 12/08/2024 [facility] 08/02/2024 [facility] 06/30/2024 [facility] 06/22/2024 [facility] No provided Primary Care 06/22/2024 [facility] 06/19/2024 [facility] 05/26/2024 10/07/2024 [facility] Primary Care 03/28/2024 [facility] Primary Care 03/27/2024 [facility] 06/13/2023 [facility] Primary Care 06/13/2023 11/22/2024 [facility] 05/26/2023 11/22/2024 [facility] Primary Care 05/24/20232023 [facility] Primary Care 05/24/20232023 [facility] 03/26/2023 [facility] Angela Kuo Primary Care 02/02/2022 [facility] Shiela [facility] Care 04/04/202102/02
--- OUTSIDE RECORDS SUMMARY | 2024-12-20 15:37 | XMS_ITS | Clinical Summary ---
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 Not on danya e 09/18/2022 Are you concerned about learning? Not on file 09/18/2022 No 09/18/2022 No 09/18/2022 Digital Access Answer Date Recorded No 10/20/2022 No 10/20/2022 No 10/20/2022 Reliable internet access at home? Not on file 10/20/2022 Device with a working camera? Not on file Sex and Gender Information Value Date Recorded Sex Assigned at Not on file Legal Sex Male 1:45 PM EST Gender Identity Not on file Sexual Orientation Not on file Plan of Treatment Not on file Medical Devices Not on file [place] [address] [place] [address] PPO BLUE CROSS OUT OF STATE PPO [facility] OUT OF [facility] PPO BLUE CROSS OUT OF STATE PPO BLUE CROSS OUT OF STATE PPO BLUE CROSS OUT OF STATE PPO BLUE [employer] OUT OF [facility] PPO [email or web address] OUT [facility] PPO Care Teams Labeling Machine Operator Relationship Specialty Start Date End Date Unknown, Unknown, PCP - General 04/17/19 Additional Source Comments The information contained in this document represents components of the legal health record. It is not the complete legal health record.[facility]
== END 2024-12-20 15:35 | disposition home or self-care (01) ==
LOC: HO.HKAE 14:53
PROVIDERS: PCP Internal Medicine; Visit Provider Internal Medicine Hypertension Specialist
DX: I12.9 Hypertensive chronic kidney disease with stage 1 through stage 4 chronic kidney disease, or unspecified chronic kidney disease (principal); N18.9 Chronic kidney disease, unspecified; G47.30 Sleep apnea, unspecified
CPT/HCPCS: 99204

== ENCOUNTER 2025-01-03 15:01 | Outpatient (AMB) | payer OTHER, SELFPAY ==
--- OUTSIDE RECORDS SUMMARY | 2024-05-22 11:44 | XMS_ITS | Encounter Summary ---
Author Organization [facility] Address 100 [facility] [place] [address] Care Team Providers Care Gate Operator Name Role Phone Vlad Archer MD Unavailable Angela Kuo MD Primary Care Provider Angel Cadena MD Unavailable [phone] Chase Tong DDS Unavailable [phone] Jeffy Chandler MD Unavailable Angela Kuo MD Unavailable [phone] Encounter Details Date Type Department Care Team (Late st Contact Info) Description 05/22/2024 10:44 AM EST Hospital Encounter [facility] [address] [place] [phone] Social History Tobacco Use Types Packs/Day Years Used Date Smoking Tobacco: Never Smokeless Tobacco: Never Alcohol Use Standard Drinks/Week Comments Not Currently 1 (1 standard drink = 0.6 oz pur e alcohol) social AHC Utilities Answer Date Recorded In the past 12 months has [employer], gas, oil, or water company threatened to [...] and Family Not on file 12/08/2024 Attends Pentecostalism Services Not on file 12/08 Active Member [...] any time in the past [address] [facility], were you homeless or living in a nursing home (including now)? No 12/08/2024 Physical Activity Answer [...] 01/30/2025 3:00 PM EDT Office Visit [facility] [place] 7 [facility] [address] [place] [phone] Jeffy Chandler MD [address] [place] [address] 04/26/2025 9:15 AM EST Office Visit [facility] 100 [facility] [address] [place] [phone] Angela Kuo MD 100 [facility] [address] [place] [address] documented as of this encounter Procedures Procedure [...] on filedocumented in this encounter Care Teams Gate Operator Relationship Specialty Start Date End Date Angela Kuo MD [address] [place] [address] PCP - General Internal Medicine 12/14/18 Angela Kuo MD [address] [place] [address] PCP - [employer] Commercial Attributed 01/23/24 08/21/24 Vlad Archer MD Passenger Barge Master Cardiovascular Disease 09/07/18 Angel Cadena MD [address] [address] Consulting Provider Surgery, Cardiac 04/07/19 Chase Tong DDS [facility] [place] [address] Dentist Dentistry 04/07/19 Jeffy Chandler MD [address] [place] [address] Primary Passenger Barge Master Cardiovascular Disease 05/14/21 documented as of this encounter
--- OUTSIDE RECORDS SUMMARY | 2025-01-03 15:05 | XMS_ITS | Clinical Summary ---
Author Organization [facility] Address [address] [place] [address] Phone Care Team Providers Care Batt Machine Operator Name Role Phone Angela Kuo MD Primary Care Provider +1- [phone] Allergies Active Allergy Reactions Criticality Noted Date [...] LAB CHEMISTRY METHOD 06/30/2024 8:31 AM EST [facility] Potassium 4.3 3.5 - 5.1 mmol/L LAB CHEMISTRY METHOD 06/30/2024 8:31 AM EST [facility] Chloride 107 98 - 107 mmol/L LAB CHEMISTRY METHOD 06/30/2024 8:31 AM EST [facility] CO2 17(L) 24 - 32 mmol/L LAB CHEMISTRY METHOD 06/30/2024 8:31 AM EST [facility] Anion Gap 13 5 - 14 LAB CHEMISTRY METHOD 06/30/2024 8:31 AM EST [facility] Glucose 179(H) 70 - 99 mg/dL LAB CHEMISTRY METHOD 06/30/2024 8:31 AM EST [facility] BUN 30(H) 9 - 20 mg/dL LAB CHEMISTRY METHOD 06/30/2024 8:31 AM EST [facility] Creatinine 1.60(H) 0.70 - 1.30 mg/dL LAB CHEMISTRY METHOD 06/30/2024 8:31 AM EST [facility] eGFR 48(L) >=60 mL/min/1. 73m2 LAB CHEMISTRY METHOD 06/30/2024 8:31 AM EST [facility] Comment:Calculation based on the Chronic Kidney Disease Epidemiology Collaboration (CKD-EPI) equation refit without adjustment for race. BUN/Creatinine Ratio 18.8 12.0 - 20.0 LAB CHEMISTRY METHOD 06/30/2024 8:31 AM EST [facility] Calcium 9.0 8.4 - 10.2 mg/dL LAB CHEMISTRY METHOD 06/30/2024 8:31 AM EST [facility] Blood Venous blood specimen / Unknown Venipuncture / Unknown 06/30/2024 7:11 AM EST 06/30/2024 7:58 AM EST us Sophie Cathie Ruiz DO LAB BLOOD ORDERABLES Final Resul t [facility] [address] [place] [address], [place] [phone] from Last 3 Months or Most Recently Relevant to Health Maintenance [facility] Advance Directives * Full Code [...] currently active code status orders. Care Teams Batt Machine Operator Relationship Specialty Start Date End Date Angela Kuo MD [address] [place] [id number] PCP - General 05/24/23
--- OUTSIDE RECORDS SUMMARY | 2025-01-03 15:05 | XMS_ITS | Clinical Summary ---
Author Organization [facility] Address [address] [place] [address] Care Team Providers Care Generating Station Mechanic Name Role Phone Angela Kuo MD Primary Care Provider +1- [phone] Allergies Active Allergy Reactions Criticality Noted Date [...] Advance Directives For more information, please contact: [phone] Latest Code Status on File Code Status Date Activated Date Inactivated Comments Full Code 05/24/2023 5:44 AM 05/25/2023 7:03 PM This co de status was ascertained in the following way: discussion with patient . Care Teams Generating Station Mechanic Relationship Specialty Start Date End Date Angela Kuo MD [address] [place] [address] PCP - General Internal Medicine 05/24/23
--- OUTSIDE RECORDS SUMMARY | 2025-01-03 15:05 | XMS_ITS | Clinical Summary ---
Author Organization [facility] Address [address] [address] Phone Care Team Providers Care Plant Engineer Name Role Phone Unknown, Unknown Primary Care Provider Isidoro smith Active Problems Problem Noted Date Diagnosed Date Presence of other heart-valve replacement 2018 senior living (current) use of anticoagulants 2018 Aortic valve [...] file Medical Devices Not on file [place] [address] [place] [address] PPO BLUE CROSS OUT OF STATE PPO [facility] OUT OF [facility] PPO BLUE CROSS OUT OF STATE PPO BLUE CROSS OUT OF STATE PPO BLUE CROSS OUT OF STATE PPO BLUE [employer] OUT OF [facility] PPO [employer] OUT [facility] PPO Care Teams Plant Engineer Relationship Specialty Start Date End Date Unknown, Unknown, PCP - General 04/17/19 Additional Source Comments The information contained in this document represents components of the legal health record. It is not the complete legal health record.[facility]
[2025-01-03 15:07] VITALS: BP 90/54; PULSE 76; O2SAT 96; BMI 41.5
--- NOTE | 2025-01-03 15:07 | HO.NEPHOV ---
Vital Signs 01/03/25 15:07 Height 6 ft 3 in Weight 332 lb BMI 41.5 BP 90/54 L Blood Pressure Location Lt brachial Position Sitting Pulse 76 Pulse Source Pulse Oximeter Pulse Oximetry (%) 96 Oxygen Delivery Method Room Air Intake Visit Reasons: 2 wk follow up w/labs and u/s-Conf Entry Level Paralegal Required: No Accompanied by: Self / Same As Patient Allergies No Known Allergies Allergy (Verified 01/03/25 15:09) Medication List - Last Reconciled 01/03/25 by Isaias Barakat MD acetaminophen (Tylenol) 650 mg PO Q4H PRN allopurinol 300 mg PO DAILY amlodipine 10 mg PO DAILY aspirin 81 mg PO DAILY epinephrine (EpiPen) 0.3 mg IM Q10M PRN furosemide (Lasix) 40 mg PO DAILY lisinopril 40 mg PO DAILY lovastatin 40 mg PO DAILY metoprolol tartrate 25 mg PO BID rosuvastatin 40 mg PO DAILY spironolactone 25 mg PO DAILY warfarin 5 mg PO DAILY HPI Comments Details: The patient is a 64-year-old male presenting with the evaluation of kidney function and management of peripheral edema. The patient reports a history of peripheral edema, initially managed with furosemide on an as-needed basis, escalating to daily use due to increased severity of swelling. In March of the previous year, the edema became severe, prompting the addition of spironolactone, which resolved the swelling within two weeks. The patient has a history of hypertension diagnosed approximately 20 years ago, managed with multiple antihypertensive medications, including amlodipine and lisinopril. Blood pressure readings have been stable post-heart surgery five years ago, with occasional concerns when readings exceed 130 mmHg systolic. The patient experienced episodes of angioedema, characterized by lip and tongue swelling, attributed to lisinopril, leading to its discontinuation. The patient was advised to resume lisinopril by a previous physician, despite the history of angioedema. The patient has a history of kidney stones, managed with allopurinol as a prophylactic measure, though the specific type of stones is unknown. The patient recalls the stones being large and requiring intervention for removal. The patient reports a history of sleep apnea, managed with a CPAP machine used nightly. The patient experienced an allergic reaction post-colonoscopy, characterized by hives and facial swelling, managed with Benadryl, leading to a syncopal episode due to dehydration. 8/13/25 The patient is a 64-year-old male presenting with hypertension and renal function assessment. The patient has been on multiple antihypertensive medications, including lisinopril, amlodipine, spironolactone, and furosemide. Despite medication adjustments, the patient's blood pressure remains low at 90/60 mmHg, and kidney function has not improved despite lowering lisinopril from 40 mg down to 20 mg. The patient underwent a urinalysis which showed no proteinuria, indicating that the swelling is not kidney-related. Liver function tests were normal, ruling out hepatic causes for swelling. The patient's hemoglobin levels were also within normal limits. An ultrasound revealed a renal cyst on the left kidney measuring 2.4 cm, with no stones or obstruction. The cyst is indeterminate, suspected to be benign, but further imaging with MRI is planned to confirm this. The patient has a history of pre-diabetes but is not currently on medication for this condition. [facility] Medical History (Updated 01/03/25 @ 15:26 by Isaias Barakat MD) Aneurysm, ascending aorta Aortic stenosis with bicuspid valve Claudication Vitamin D deficiency, unspecified LVH (left ventricular hypertrophy) due to hypertensive disease Uric acid nephrolithiasis Abnormal results of kidney function studies Obstructive sleep apnea (adult) (pediatric) Cardiomegaly Impaired fasting glucose Pure hypercholesterolemia, unspecified Benign essential hypertension Aortic valve disorder Allergic urticaria Surgical History H/O aortic valve replacement Physical Exam Vital Signs: Last Vital Signs Pulse 76 01/03/25 15:07 BP 90/54 L 01/03/25 15:07 Pulse Ox 96 01/03/25 15:07 Oxygen Delivery Method Room Air 01/03/25 15:07 BMI result Body Mass Index 41.5 Const General: comfortable Nutritional Appearance: well nourished Orientation/consciousness: patient oriented x3 HEENT Head: No normal to inspection Mouth: moist mucous membranes Neck Neck: Yes supple and Yes no JVD Resp Auscultation: clear to auscultation bilaterally and no rales Cardio Jugular venous distension: no JVD Palpation: no palpable S3 and no palpable S4 Heart sounds: no rubs GI Palpation (GI): Soft to palpation and nontender Percussion: No Fluid wave present General: Yes no CVA tenderness Back/Spine/Pelvis Back: no CVA tenderness Skin General skin exam: no rashes or lesions noted Neuro General: patient oriented x3 Extrem General: Yes no pedal edema and No clubbing Results Reviewed Results Reviewed: Creatinine 1.0 Assessment & Plan Assessment & Plan (1) Benign essential hypertension: Code(s): I10 - Essential (primary) hypertension Category: Medical (2) CKD (chronic kidney disease): Code(s): N18.9 - Chronic kidney disease, unspecified Category: Medical (3) Sleep apnea: Code(s): G47.30 - Sleep apnea, unspecified Category: Medical (4) Renal cyst: Code(s): N28.1 - Cyst of kidney, acquired Category: Medical Plan CKD 3. Despite decreasing lisinopril there is no improvement in the serum creatinine. Blood pressure remains low. I think he has a component of hypoperfusion. No obstruction on renal ultrasonogram. Ultrasonogram revealed a renal cyst which was indeterminate. MRI has been recommended. Urinalysis was benign. No protein or blood. LFTs are normal. The edema may be related to the use of amlodipine. Recommendations. Discontinue lisinopril. Obtain MRI of the renal lesion. Watch BP for now and would try to lower amlodipine if blood pressure remains low. Orders: Orders Basic Metabolic Panel 4 Weeks I10 - Essential (primary) hypertension, N18.9 - Chronic kidney disease, unspecified MR abdomen wo/w con 01/03/25 N28.1 - Cyst of kidney, acquired Patient Instructions: - Stop taking lisinopril as directed. - Continue taking spironolactone and furosemide as prescribed. - Schedule and complete the MRI as discussed. - Follow up in four weeks for reassessment of blood pressure and kidney function. Coding Level of Care Code Est Pt Level 4 (45013) Diagnoses Benign essential hypertension I10 CKD (chronic kidney disease) N18.9 Sleep apnea G47.30 Renal cyst N28.1
== END 2025-01-03 15:29 | disposition home or self-care (01) ==
LOC: HO.HKAE 15:01
PROVIDERS: PCP Internal Medicine; Visit Provider Internal Medicine Hypertension Specialist
DX: I12.9 Hypertensive chronic kidney disease with stage 1 through stage 4 chronic kidney disease, or unspecified chronic kidney disease (principal); N18.9 Chronic kidney disease, unspecified; G47.30 Sleep apnea, unspecified; N28.1 Cyst of kidney, acquired
CPT/HCPCS: 99214

== ENCOUNTER 2025-01-31 16:18 | Outpatient (AMB) | payer OTHER, SELFPAY ==
--- OUTSIDE RECORDS SUMMARY | 2024-05-22 11:44 | XMS_ITS | Encounter Summary ---
Author Organization [facility] Address 100 [place] [address] Care Team Providers Care Manager Cargo Name Role Phone Vlad Archer MD Unavailable Angela Kuo MD Primary Care Provider Angel Cadena MD Unavailable [phone] Chase Tong DDS Unavailable [phone] Jeffy Chandler MD Unavailable Angela Kuo MD Unavailable [phone] Encounter Details Date Type Department Care Team (Late st Contact Info) Description 05/22/2024 10:44 AM EST Hospital Encounter [facility] [address] [place] [phone] Social History Tobacco Use Types Packs/Day Years Used Date Smoking Tobacco: Never Smokeless Tobacco: Never Alcohol Use Standard Drinks/Week Comments Not Currently 1 (1 standard drink = 0.6 oz pur e alcohol) social AHC Utilities Answer Date Recorded In the past 12 months has [employer], gas, oil, or water company threatened to [...] and Family Not on file 12/08/2024 Attends Christianity Services Not on file 12/08 Active Member [...] any time in the past 12 m [facility], were you homeless or living in a [facility] (including now)? No 12/08/2024 Physical Activity Answer [...] Care Team (Late st Contact Info) Description 04/26/2025 9:15 AM EST Office Visit [facility] 100 [facility] [address] [place] [phone] Angela Kuo MD 100 [facility] [address] [place] [address] 07/31/2025 10:30 AM EDT Office Visit [facility] [place] 7 [facility] [address] [place] [phone] Jeffy Chandler MD [address] [place] [address] [place] [address] documented as of this encounter Procedures Procedure [...] radiographic sign of acute cardiopulmonary disease. Smiley Jimenamiquel Alonzo IMHosea DIAGNOSTIC IMAGIN G ORDERABLES Final Result documented in this encounter Visit Diagnoses Not on filedocumented in this encounter Care Teams Manager Cargo Relationship Specialty Start Date End Date Angela Kuo MD [address] [place] [address] PCP - General Internal Medicine 12/14/18 Angela Kuo MD [address] [place] [address] PCP - [employer] Commercial Attributed 01/23/24 08/21/24 Vlad Archer MD Metal Coater Cardiovascular Disease 09/07/18 Angel Cadena MD [address] [address] Consulting Provider Surgery, Cardiac 04/07/19 Chase Tong DDS [address] [place] [address] Dentist Dentistry 04/07/19 Jeffy Chandler MD [address] [place] [address] Primary Metal Coater Cardiovascular Disease 05/14/21 documented as of this encounter
--- OUTSIDE RECORDS SUMMARY | 2025-01-30 15:00 | XMS_ITS | Encounter Summary ---
Author Organization Formerly [facility] Address [address] [place] [address] Care Team Providers Care Manager Specialty Name Role Phone Vlad Archer MD Unavailable Angela Kuo MD Primary Care Provider [phone] Angel Cadena MD Unavailable [phone] Chase Tong DDS Unavailable [phone] Jefyf Chandler MD Unavailable Reason for Referral * Cardiovascular Test (Routine) - Pending Review Specialty Diagnoses / Procedures Referred By Contac t Referred To Contact Diagnoses S/P AVR (aortic valve replacement) Procedures Echocardiogram (TTE) Comprehensive (Contrast PRN) Jeffy Chandler MD [address] [place] [id number] Phone: tel:[phone] fax:[phone] Referral ID Status Reason Start Date Expiration Date V isits Requested Visits Authorized [id number] Pending Review 01/30/2025 01/31/2026 1 1 Reason for Visit * Reason Comments Follow-up Encounter Details Date Type Department Care Team (Late st Contact Info) Description 01/30/2025 3:00 PM EDT Office Visit [facility] [place] [place] [address] [place] [phone] Jeffy Chandler MD [address] [place] [address] S/P AVR (aortic valve replacement) (Primary Dx); Localized edema; Benign essential hypertension ; S/P ascending aortic replacement Social History Tobacco Use Types Packs/Day Years Used Date Smoking Tobacco: Never Smokeless Tobacco: Never Tobacco Cessation:Counseling Given: Not Answered Alcohol Use Standard Drinks/Week Comments Not Currently 1 (1 standard drink = 0.6 oz pur e alcohol) social [facility] Utilities Answer Date Recorded In the past 12 months has e electric, gas, oil, or water company threatened to [...] and Family Not on file 12/08/2024 Attends Religion Services Not on file 12/08 Active Member [...] any time in the past 12 m [facility], were you homeless or living in a assisted (including now)? No 12/08/2024 Physical Activity Answer [...] fi le documented as of this encounter Last Filed Vital Signs Vital Sign Reading Time Taken Comments Blood Pressure 144/68 01/30/2025 2:50 PM EDT Pulse 50 01/30/2025 2:50 PM EDT Temperature - - Respiratory Rate - - Oxygen Saturation 96% 01/30/2025 2:50 PM EDT Inhaled Oxygen Concentration - - Weight 143 kg (315 lb) 01/30/2025 2:50 PM EDT Height 190.5 cm (6' 3 ) 01/30/2025 2:50 PM EDT Body Mass Index 39.37 01/30/2025 2:50 PM EDT documented in this encounter Progress Notes * Jeffy Chandler MD - 01/30/2025 3:31 PM EDT Patient: Dylan Suarez Date of : 1960 Age: 64 y.o. Gender: male Visit Date: 01/30/2025 Encounter Provider: Jeffy Chandler MD Primary: Anglea Kuo MD Referring Provider: Angela Kuo MD Subjective Reason For Visit: Follow-up History of Present Illness: I had the pleasure of seeing Dylan Suarez, a 64 y.o. male, in the office today for follow-upevaluation. His past medical history includes moderate to severe aortic valve stenosis, bicuspid aortic valve, obesity, hypertension, dyslipidemia, renal stones, and chronic low back pain. He is a lifelong non- smoker. He initially presented with a murmur from his PCP and on echocardiogram was foundto have moderate to severe aortic stenosis with a dilated aorta. He then underwent a CTA which showed ascending aorta of 52 mm. He was brought in to the Extraction Supervisor in August 2018, for preop prior to aortic root repair and aortic valve replacement. He was found to have no significant CAD. On 04/11/2019, patient underwent a successful placement of /29 On-X mechanical aortic valve, along with aortic root replacement with 30 mm dacryon graft. He was found to have bicuspid valve fusion between left and right with severe calcification. Total pump time: 173 minutes, total clamp time: 99minutes. He did well post surgery. His postop LEEROY, showed mean gradient of 3 mmHg across this valve. Transthoracic echocardiogram performed on 05/05/2019, shows normal ejection fraction with mean gradient ~7 mmHg. In the interim, he continued to do well and has not experienced any cardiovascular symptoms. His blood pressure has been under control. He does not complain of any chest discomfort, shortness of breath, or palpitations. A transthoracic echocardiogram that was done in July 2023 revealed normal left ventricular systolic function with a normal functioning aortic valve replacement. He did continue to complain of significant lower extremity edema. I had put him on spironolactone. He is feeling much better. The degree of edema has improved. He states that he feels better than he has felt in a long time. He is undergoing a renal workup. Lisinopril has been held. His blood pressure is slightly elevated. He had been hypotensive. Medications: Current Outpatient Medications Medication Sig Note Dispense Refill acetaminophen (TYLENOL) 325 MG tablet Take 2 tablets (650 mg total) by mouth 4 times daily (every 6hours) as needed for mild pain, moderate pain, headaches or fever. allopurinol (ZYLOPRIM) 300 MG tablet TAKE 1 TABLET DAILY 90 tablet 3 amLODIPine (NORVASC) 10 MG tablet TAKE 1 TABLET DAILY 90 tablet 3 aspirin 81 MG tablet Aspirin 81 MG Oral Tablet Delayed Release ; Start Date: 12/10/2014; End Date: 07/22/2015: Received from: [facility] EPINEPHrine 0.3 mg/0.3 mL IJ auto-injection INJECT 0.3 ML (0.3 MG TOTAL) INTO THE MUSCLE ONCE FOR 1DOSE furosemide (LASIX) 40 MG tablet Take 1 tablet (40 mg total) by mouth daily. TAKE 1 TABLETS DAILY ASNEEDED FOR EDEMA 90 tablet 1 metoPROLOL TARTRATE (LOPRESSOR) 25 MG tablet TAKE 1 TABLET EVERY 12 HOURS AROUND THE CLOCK 180 tablet 3 rosuvastatin (CRESTOR) 40 MG tablet TAKE 1 TABLET DAILY 90 tablet 3 spironolactone (ALDACTONE) 25 MG tablet Take 1 tablet (25 mg total) by mouth daily. 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: 2014-07-24 15:13:06 Hyperlipidemia Hypertension Kidney stones Nonallopathic lesion of rib cage, not elsewhere classified Rib cage region somatic dysfunction: 2013-08-09 00:04:27 Nonallopathic lesion of thoracic region, not elsewhere classified Somatic dysfunction of thoracic region: 2013-08-09 00:04:27 Other symptoms referable to back Back muscle spasm: 2013-08-09 00:04:27 Sleep apnea CPAP Past Surgical History: Procedure Laterality Date BRAIN SURGERY CC HEART CATH--LT/RT N/A 09/09/2018 Procedure: HEART CATH-LT/RT; Surgeon: Vlad Archer MD; Location: [facility]; Service: Cardiovascular; Laterality: N/A; RIGHT AND LEFT HEART CATH 09/09/2018 9AM ARRIVAL FOR 11AM CASE WA CRANIECTOMY W/EXCISION TUMOR/OTH BONE LESION SKL Craniotomy Tumor Removal - Complete: 2010-10-10 14:44:30 WA INSERT TEMP PROSTATIC URETH STENT W/MEASUREMENT Cystoscopy With Insertion Of Temporary Urethral Stent: 2010-10-10 14:44:30 WA PERQ NL/PL LITHOTRP COMPLEX >2 CM [employer] LOCATIONS Percutaneous Lithotomy For Stone Over 2cm.: 2010-10-10 14:44:30 Detailed history: 2018-09: Aortic stenosis with bicuspid valve 2018-04: LVH (left ventricular hypertrophy) due to hypertensive disease, without heart failure 2014-11: Pure hypercholesterolemia 2013-07: Aortic valve disorder 2013-07: Cardiomegaly Social History: Social History Tobacco Use Smoking status: Never Smokeless tobacco: Never Vaping Use Vaping status: Never Used Substance Use Topics Alcohol use: Not Currently Alcohol/week: 1.0 standard drink of alcohol Types: 1 Cans of beer per week Comment: social Drug use: No Marital Status: Family History: Family History Problem Relation Age of Onset Heart disease Mother 70 Alcohol abuse Father Substance Abuse Father Multiple sclerosis Sister Diabetes Brother Mellitus Review of Systems: Review of Systems Constitutional: Negative for activity change, appetite change, chills, diaphoresis, fatigue, fever and unexpected weight change. Respiratory: Negative for apnea, cough, choking, chest tightness, shortness of breath, wheezing andstridor. Cardiovascular: Positive for leg swelling. Negative for chest pain and palpitations. Gastrointestinal: Negative for blood in stool, constipation, diarrhea and nausea. Genitourinary: Negative for hematuria. Musculoskeletal: Positive for arthralgias, back pain, gait problem, joint swelling, myalgias, neck pain and neck stiffness. Neurological: Negative for dizziness, weakness and light-headedness. Problem List Endocrine Impaired fasting glucose Respiratory Obstructive sleep apnea syndrome Cardiovascular and Mediastinum Aortic valve disorder Benign essential hypertension Cardiomegaly LVH (left ventricular hypertrophy) due to hypertensive disease, without heart failure Aortic stenosis with bicuspid valve Ascending aortic aneurysm Musculoskeletal and Integument Allergic urticaria Genitourinary Uric acid nephrolithiasis Other Pure hypercholesterolemia Class 3 severe obesity due to excess calories with serious comorbidity and body mass index (BMI) of40.0 to 44.9 in adult (HCC) Nonspecific abnormal results of kidney function study Vitamin D deficiency Claudication Overview Added automatically from request for surgery [id number] S/P AVR (aortic valve replacement) Overview The left ventricle is normal in size. Left ventricular systolic function is low normal. The quantitative EF by 2D Reese biplane is 51%. The right ventricle is normal in size. Right ventricular systolic function is low normal. There is a mechanical aortic valve present. There is trace aortic regurgitation. The gradient recorded across the prosthetic aortic valve is within the expected range. The calculated valve area is 2.2 cm2, with a peak velocity of 1.8 m/s, a mean gradient of 6.5 mmHg, and a dimensionless index of 0.59 . There is no pericardial effusion Compared to previous study on 05/01/21, there is no significant change. Relevant Orders Echocardiogram (TTE) Comprehensive (Contrast PRN) S/P ascending aortic replacement Localized edema Objective BP (!) 144/68 (BP Location: Left arm, Patient Position: Sitting, Cuff Size: Medium (Standard)) Pulse (!) 50 Ht 1.905 m (6' 3 ) Wt (!) 143 kg (315 lb) SpO2 96% BMI 39.37 kg/m?? Physical Exam Vitals reviewed. Cardiovascular: Rate and Rhythm: Normal rate. Heart sounds: Murmur heard. Pulmonary: Effort: Pulmonary effort is normal. No respiratory distress. Breath sounds: No stridor. No wheezing, rhonchi or rales. Chest: Chest wall: No tenderness. Musculoskeletal: Right lower leg: Edema present. Left lower leg: Edema present. Neurological: Mental Status: He is oriented to person, place, and time. Results: Office Visit on 12/08/2024 Component Date Value Hemoglobin A1C 12/08/2024 6.1 (A) Lot Number 12/08/2024 [id number] [employer]her 12/08/2024 Pass Orders Only on 11/17/2024 Component Date Value Glucose 12/04/2024 109 (H) Blood Urea Nitrogen (BUN) 12/04/2024 30 (H) Creatinine 12/04/2024 1.46 (H) Creatinine w/ eGFR 12/04/2024 53 (L) BUN/Creatinine Ratio 12/04/2024 21 Sodium 12/04/2024 138 Potassium 12/04/2024 4.4 Chloride 12/04/2024 104 CO2 12/04/2024 24 Calcium 12/04/2024 9.5 Protein, Total 12/04/2024 6.5 Albumin 12/04/2024 4.1 Globulin 12/04/2024 2.4 Albumin/Globulin Ratio 12/04/2024 1.7 Bilirubin, Total 12/04/2024 1.2 Alkaline Phosphatase 12/04/2024 58 Aspartate Aminotrans (* 12/04/2024 15 Alanine Aminotrans (ALT) 12/04/2024 15 Cholesterol, Total 12/04/2024 147 Cholesterol, HDL 12/04/2024 39 (L) Triglycerides 12/04/2024 206 (H) LDL Cholesterol 12/04/2024 78 Cholesterol/HDL Ratio 12/04/2024 3.8 Non HDL Chol. (LDL+VLDL) 12/04/2024 108 INR 12/04/2024 2.7 (H) Prothrombin Time (PT) 12/04/2024 26.8 (H) Orders Only on 11/17/2024 Component Date Value INR 01/26/2025 2.2 (H) Prothrombin Time (PT) 01/26/2025 21.8 (H) Orders Only on 10/17/2024 Component Date Value INR 11/15/2024 2.8 (H) Prothrombin Time (PT) 11/15/2024 27.9 (H) Orders Only on 08/17/2024 Component Date Value INR 10/13/2024 2.9 (H) Prothrombin Time (PT) 10/13/2024 28.3 (H) Office Visit on 08/01/2024 Component Date Value Ventricular rate 08/01/2024 67 Atrial rate 08/01/2024 67 P-R interval 08/01/2024 196 QRS duration 08/01/2024 98 Q-T interval 08/01/2024 410 QTC calculation (Bazett) 08/01/2024 433 P axis 08/01/2024 12 R axis 08/01/2024 -26 T axis 08/01/2024 73 Laboratory studies: Reviewed Assessment & Plan Diagnoses and all orders for this visit: S/P AVR (aortic valve replacement) - Echocardiogram (TTE) Comprehensive (Contrast PRN); Future Localized edema Benign essential hypertension S/P ascending aortic replacement Discussed: I had the pleasure of seeing Dylan Suarez, a 64 y.o. male with the following problem(s): 1. Moderate to severe aortic valve stenosis status post On-X mechanical aortic valve (March 2019). Mean gradient of 3 mmHg across the valve and postop LEEROY. 2. Bicuspid aortic valve with severe aortic root aneurysm (52 mm), status post aortic root repair with 30 mm graft. 3. Hypertension 4. Hyperlipidemia 5. Class III severe obesity, with BMI of 39 6. Sleep apnea 7. Chronic diastolic congestive heart failure PLAN / RECOMMENDATIONS: 1. I am reassured by the results of a prior echocardiogram. He does not have any symptoms suggestive of angina or heart failure. He does have a mechanical ON/X valve, for which the INR ranges between1.5-2.0. As long as he remains in that range, I do not think we should have any problem him eating more fruits and vegetables. Given the complaints of lower extremity edema, I had started him on spironolactone. This has resulted in significant improvement. I would like him to undergo an echocardiogram prior to his next visit. 2. As for hypertension, he will continue on the current regimen of amlodipine 10 mg daily, Lasix asprescribed, spironolactone, and metoprolol tartrate 25 mg twice a day. 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 Counseling/Education: There are no Patient Instructions on file for this visit. documented in this encounter Plan of Treatment Upcoming Encounters Date Type Department Care Team (Late st Contact Info) Description 04/26/2025 9:15 AM EST Office Visit [address] [place] [address] Angela Kuo MD [address] [place] [address] [address] [place] [address] 07/31/2025 10:30 AM EDT Office Visit [facility] [place] [address] [facility] [address] [place] [address] Jeffy Chandler MD [address] [place], [place] [phone] Scheduled Orders Name Type Priority Associated Diagnoses Order Schedule Echocardiogram (TTE) Comprehensive (Contrast PRN) Echocardiography Routine S/P AVR (aortic valve replacement) Expected: 07/30/2025 (Approximate), Expires: 01/30/2026 documented as of this encounter Visit Diagnoses Diagnosis S/P AVR (aortic valve replacement)- Primary Heart valve replaced by other means Localized edema Edema Benign essential hypertension Essential hypertension, benign S/P ascending aortic replacement Blood vessel replaced by other means documented in this encounter Care Teams Manager Specialty Relationship Specialty Start Date End Date Angela Kuo MD [address] [place] [address] PCP - General Internal Medicine 12/14/18 Vlad Archer MD Radiology Assistant Cardiovascular Disease 09/07/18 Angel Cadena MD [address] [facility] [address] [place] [address] Consulting Provider Surgery, Cardiac 04/07/19 Chase Tong DDS [address] [place] [address] Dentist Dentistry 04/07/19 Jeffy Chandler MD [address] [place], [place] [address] [phone] Primary Radiology Assistant Cardiovascular Disease 05/14/21 documented as of this encounter
[2025-01-31 16:26] VITALS: BP 136/72; PULSE 68; O2SAT 97; BMI 41.6
--- NOTE | 2025-01-31 16:26 | HO.NEPHOV_ITS ---
Vital Signs 01/31/25 16:26 Height 6 ft 3 in Weight 333 lb BMI 41.6 BP 136/72 Blood Pressure Location Rt brachial Position Sitting Pulse 68 Pulse Source Pulse Oximeter Pulse Oximetry (%) 97 Oxygen Delivery Method Room Air Intake Visit Reasons: 1mon f/u w/labs-LVM Internet Marketing Coordinator Required: No Accompanied by: Self / Same As Patient Allergies No Known Allergies Allergy (Verified 01/31/25 16:28) Medication List - Last Reconciled 01/31/25 by Isaias Barakat MD acetaminophen (Tylenol) 650 mg PO Q4H PRN allopurinol 300 mg PO DAILY amlodipine 10 mg PO DAILY aspirin 81 mg PO DAILY epinephrine (EpiPen) 0.3 mg IM Q10M PRN furosemide (Lasix) 40 mg PO DAILY lovastatin 40 mg PO DAILY metoprolol tartrate 25 mg PO BID rosuvastatin 40 mg PO DAILY spironolactone 25 mg PO DAILY warfarin 5 mg PO DAILY HPI Comments Details: The patient is a 64-year-old male presenting with the evaluation of kidney function and management of peripheral edema. The patient reports a history of peripheral edema, initially managed with furosemide on an as-needed basis, escalating to daily use due to increased severity of swelling. In March of the previous year, the edema became severe, prompting the addition of spironolactone, which resolved the swelling within two weeks. The patient has a history of hypertension diagnosed approximately 20 years ago, managed with multiple antihypertensive medications, including amlodipine and lisinopril. Blood pressure readings have been stable post-heart surgery five years ago, with occasional concerns when readings exceed 130 mmHg systolic. The patient experienced episodes of angioedema, characterized by lip and tongue swelling, attributed to lisinopril, leading to its discontinuation. The patient was advised to resume lisinopril by a previous physician, despite the history of angioedema. The patient has a history of kidney stones, managed with allopurinol as a prophylactic measure, though the specific type of stones is unknown. The patient recalls the stones being large and requiring intervention for removal. The patient reports a history of sleep apnea, managed with a CPAP machine used nightly. The patient experienced an allergic reaction post-colonoscopy, characterized by hives and facial swelling, managed with Benadryl, leading to a syncopal episode due to dehydration. 01/03/25 The patient is a 64-year-old male presenting with hypertension and renal function assessment. The patient has been on multiple antihypertensive medications, including lisinopril, amlodipine, spironolactone, and furosemide. Despite medication adjustments, the patient's blood pressure remains low at 90/60 mmHg, and kidney function has not improved despite lowering lisinopril from 40 mg down to 20 mg. The patient underwent a urinalysis which showed no proteinuria, indicating that the swelling is not kidney-related. Liver function tests were normal, ruling out hepatic causes for swelling. The patient's hemoglobin levels were also within normal limits. An ultrasound revealed a renal cyst on the left kidney measuring 2.4 cm, with no stones or obstruction. The cyst is indeterminate, suspected to be benign, but further imaging with MRI is planned to confirm this. The patient has a history of pre-diabetes but is not currently on medication for this condition. 01/31/25 Feels much better BP has improved. SBP was 144 yesterday in Cardiology office [facility] Medical History (Updated 01/03/25 @ 15:26 by Isaias Barakat MD) Aneurysm, ascending aorta Aortic stenosis with bicuspid valve Claudication Vitamin D deficiency, unspecified LVH (left ventricular hypertrophy) due to hypertensive disease Uric acid nephrolithiasis Abnormal results of kidney function studies Obstructive sleep apnea (adult) (pediatric) Cardiomegaly Impaired fasting glucose Pure hypercholesterolemia, unspecified Benign essential hypertension Aortic valve disorder Allergic urticaria Surgical History (Updated 01/31/25 @ 16:55 by Isaias Barakat MD) H/O aortic valve replacement Physical Exam Vital Signs: Last Vital Signs Pulse 68 01/31/25 16:26 BP 136/72 01/31/25 16:26 Pulse Ox 97 01/31/25 16:26 Oxygen Delivery Method Room Air 01/31/25 16:26 BMI result Body Mass Index 41.6 Const General: comfortable Nutritional Appearance: well nourished Orientation/consciousness: patient oriented x3 HEENT Head: No normal to inspection Mouth: moist mucous membranes Neck Neck: Yes supple and Yes no JVD Resp Auscultation: clear to auscultation bilaterally and no rales Cardio Jugular venous distension: no JVD Palpation: no palpable S3 and no palpable S4 Heart sounds: no rubs GI Palpation (GI): Soft to palpation and nontender Percussion: No Fluid wave present General: Yes no CVA tenderness Back/Spine/Pelvis Back: no CVA tenderness Skin General skin exam: no rashes or lesions noted Neuro General: patient oriented x3 Extrem General: Yes no pedal edema and No clubbing Results Reviewed Results Reviewed: Jan 2025 Creatinine 1.24 Assessment & Plan Assessment & Plan (1) CKD (chronic kidney disease): Code(s): N18.9 - Chronic kidney disease, unspecified Category: Medical (2) Benign essential hypertension: Code(s): I10 - Essential (primary) hypertension Category: Medical (3) Sleep apnea: Code(s): G47.30 - Sleep apnea, unspecified Category: Medical (4) Renal cyst: Code(s): N28.1 - Cyst of kidney, acquired Category: Medical Plan CKD 3. Creatinine improved significantly after stopping Lisinopril eGFR increased from 42 to 65 ml/mt NO significant proteinuria Can hold off on Lisinopril for now BP is well controlled No obstruction on renal ultrasonogram. Ultrasonogram revealed a renal cyst which was indeterminate. MRI has been recommended. Unable to proceed with MRI due to mechanical valve Would monitor renal cyst with USG - every 6 months [address] proceed with CT scan with contrast /REnal mass protocol if needed Urinalysis was benign. No protein or blood. LFTs are normal. The edema may be related to the use of amlodipine. Orders: Orders Creatinine 3 Months N18.9 - Chronic kidney disease, unspecified Blood Urea Nitrogen 3 Months N18.4 - Chronic kidney disease, stage 4 (severe), N18.9 - Chronic kidney disease, unspecified Coding Level of Care Code Est Pt Level 4 (17522) Diagnoses CKD (chronic kidney disease) N18.9 Benign essential hypertension I10 Sleep apnea G47.30 Renal cyst N28.1
--- OUTSIDE RECORDS SUMMARY | 2025-01-31 18:41 | XMS_ITS | Encounter Summary ---
Author Organization [facility] Address [address] [place] [address] Care Team Providers Care Gun Fitter Name Role Phone Vlad Archer MD Unavailable Angela Kuo MD Primary Care Provider + [phone] Angel Cadena MD Unavailable [phone] Chase Tong DDS Unavailable [phone] Jeffy Chandler MD Unavailable Angela Kuo MD Unavailable [phone] Encounter Details Date Type Department Care Team (Late st Contact Info) Description 06/06/2024 Scanned Document [facility] [address] [address] Gastroenterology, Scan Social History Tobacco Use Types Packs/Day Years Used Date Smoking Tobacco: Never Smokeless Tobacco: Never Alcohol Use Standard Drinks/Week Comments Not Currently 1 (1 standard drink = 0.6 oz pur e alcohol) social PHQ-2 Answer Date Recorded PHQ-2 Total Score 0 01/20/2024 Physical Activity Answer Date Recorded On average, how many days pe r week do you engage in moderate to strenuous exercise (like a brisk walk)? 0 days 01/20/2024 On average, how many minutes do you exercise per day at this level? 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 Not on file Not on fi le documented as of this encounter Plan of Treatment Upcoming Encounters Date Type Department Care Team (Late st Contact Info) Description 04/26/2025 9:15 AM EST Office Visit [facility] [address] [place] [address] Angela Kuo MD [address] [place] [address] 07/31/2025 10:30 AM EDT Office Visit [facility] [place] [facility] [address] [place] [phone] Jeffy Chandler MD [address] [place] [address] [place] [address] documented as of this encounter Visit Diagnoses Not on filedocumented in this encounter Care Teams Gun Fitter Relationship Specialty Start Date End Date Angela Kuo MD 100 [facility] [address] [place] [address] PCP - General Internal Medicine 12/14/18 Angela Kuo MD [address] [place] [address] PCP - [employer] Commercial Attributed 01/23/24 08/21/24 Vlad Archer MD Forensic Analyst Cardiovascular Disease 09/07/18 Angel Cadena MD 85 [facility] 919 [place] [address] Consulting Provider Surgery, Cardiac 04/07/19 Chase Tong DDS [address] [place] [address] Dentist Dentistry 04/07/19 Jeffy Chandler MD [address] [place] [address] Primary Forensic Analyst Cardiovascular Disease 05/14/21 documented as of this encounter
--- OUTSIDE RECORDS SUMMARY | 2025-01-31 18:41 | XMS_ITS | Encounter Summary ---
Author Organization [facility] Address [address] [place] [address] Care Team Providers Care Adjunct Philosophy Faculty Name Role Phone Vlad Archer MD Unavailable Angela Kuo MD Primary Care Provider [phone] Angel Cadena MD Unavailable [phone] Chase Tong DDS Unavailable [phone] Jeffy Chandler MD Unavailable Angela Kuo MD Unavailable [phone] Encounter Details Date Type Department Care Team (Late st Contact Info) Description 08/14/2024 Scanned Document [address] [place] [address] Primary Care, Scan Social History Tobacco Use Types Packs/Day Years Used Date Smoking Tobacco: Never Smokeless Tobacco: Never Alcohol Use Standard Drinks/Week Comments Not Currently 1 (1 standard drink = 0.6 oz pur e alcohol) social C Utilities Answer Date Recorded In the past 12 months has e electric, gas, oil, or water company threatened to shut off services in your home? No 07/04/2024 Social Connection and Isolation Panel [NHANES] A nswer Date Recorded Frequency of Communication with Friends and Fami ly Not on file 07/04/2024 Frequency of Social Gatherings with Friends and Family Not on file 07/04/2024 Attends Anabaptism Services Not on file 07/04 Active Member of Clubs or Organizations Not on f ile 07/04/2024 Attends Club or Organization Meetings Not on danya e 07/04/2024 Are you , , di vorced, , never , or living with a partner? 07/04/2024 Overall Financial Resource Strain (CARDIA) Answe r [...] the money to buy more. Never true 07/04/19 25 Within the past 12 months, t he food you bought just didn't last and you didn't have money to get more. Never true 07/04/2024 PRAPARE - Transportation Answer Date Re corded In the past 12 months, has l ack of transportation kept you from medical appointments or from getting medications? No 06/24 In the past 12 months, has l ack of transportation kept you from meetings, work, or from getting things needed for daily living? No 07/04/2024 Housing Stability Vital Sign Answer [place] e Recorded In the last 12 months, was t here a time when you were not able to pay the mortgage or rent on time? No 07/04/2024 Number of Times Moved in the Last Year Not on fi le 07/04/2024 At any time in the past 12 m [facility], were you homeless or living in a group home (including now)? No 07/04/2024 Physical Activity Answer Date Recorded On average, [...] Description 04/26/2025 9:15 AM EST Office Visit [facility] [address] [place] [address] Angela Kuo MD [address] [place] [address] 07/31/2025 10:30 AM EDT Office Visit [facility] & Vascular [place] [facility] [address] [place] [address] Jeffy Chandler MD [address] [place] [address] [place], [place] [address] [phone] documented as of this encounter Visit Diagnoses Not on filedocumented in this encounter Care Teams Adjunct Philosophy Faculty Relationship Specialty Start Date End Date Angela Kuo MD 100 [facility] [address] [place] [address] PCP - General Internal Medicine 12/14/18 Angela Kuo MD 100 [facility] [address] [place] [address] PCP - C[employer] Commercial Attributed 01/23/24 08/21/24 Vlad Archer MD Mat Maker Cardiovascular Disease 09/07/18 Angel Cadena MD 85 [facility] 9[address] [place] [address] Consulting Provider Surgery, Cardiac 11/15/19 Chase Tong DDS [address] [place] [address] Dentist Dentistry 04/07/19 Jeffy Chandler MD [address] [place] [address] Primary Mat Maker Cardiovascular Disease 05/14/21 documented as of this encounter
--- OUTSIDE RECORDS SUMMARY | 2025-01-31 18:42 | XMS_ITS | Encounter Summary ---
Author Organization [facility] Address [address] [place] [address] Care Team Providers Care Storm Window Installer Name Role Phone Vlad Archer MD Unavailable Angela Kuo MD Primary Care Provider [phone] Angel Cadena MD Unavailable [phone] Chase Tong DDS Unavailable [phone] Jeffy Chandler MD Unavailable Angela Kuo MD Unavailable [phone] Encounter Details Date Type Department Care Team (Late st Contact Info) Description 12/10/2023 Scanned Document [address] [place] [address] Emergency Medicine, Scan Social History Tobacco Use Types Packs/Day Years Used Date Smoking Tobacco: Never Smokeless Tobacco: Never Alcohol Use Standard Drinks/Week Comments Yes 1 (1 standard drink = 0.6 oz pur e alcohol) social PHQ-2 Answer Date Recorded PHQ-2 Total Score 0 01/20/2023 Sex and Gender Information Value Date Recorded [...] 04/26/2025 9:15 AM EST Office Visit [facility] [place] [address] [place] [address] Angela Kuo MD [address] [place] [address] 07/31/2025 10:30 AM EDT Office Visit [facility] Heart & Vascular [place] [address] [place] [address] Jeffy Chandler MD 420 [facility] [place] [address] documented as of this encounter Visit Diagnoses Not on filedocumented in this encounter Care Teams Storm Window Installer Relationship Specialty Start Date End Date Angela Kuo MD [address] [place] [address] PCP - General Internal Medicine 12/14/18 Angela Kuo MD [address] [place] [address] PCP - C[employer] Commercial Attributed 01/23/24 08/21/24 Vlad Archer MD School Library Media Program Director Cardiovascular Disease 09/07/18 Angel Cadena MD 85 [facility] 919 [place] [address] Consulting Provider Surgery, Cardiac 04/07/19 Chase Tong DDS [address] [place] [address] Dentist Dentistry 04/07/19 Jeffy Chandler MD [address] [place] [address] Primary School Library Media Program Director Cardiovascular Disease 05/14/21 documented as of this encounter
--- OUTSIDE RECORDS SUMMARY | 2025-01-31 18:42 | XMS_ITS | Encounter Summary ---
Author Organization [facility] Address [address] [place] [address] Care Team Providers Care Knitting Machine Tender Name Role Phone Abiola Dangelo Primary Care Provider Bakari Pulido MD Primary Care Provider Angela Kuo MD Primary Care Provider [phone] Vlad Archer MD Unavailable Angel Cadena MD Primary Care Provider Angela Kuo MD Primary Care Provider [phone] Angel Cadena MD Unavailable Chase Tong DDS Unavailable Alessandra Nelson RN Unavailable Jeffy Chandler MD Unavailable Angela Kuo MD Unavailable Reason for Visit * Reason Comments Medication Refill Encounter Details Date Type Department Care Team (Late st Contact Info) Description 03/01/[address] [place] [address] Akanksha De La Cruz APRN 100 [facility] [address] [place] [address] Hypercholesteremia; Gout, unspecified cause, unspecified chronicity, unspecified site; HTN (hypertension), benign Social History Tobacco Use Types Packs/Day Years Used Date Smoking Tobacco: Never Smokeless Tobacco: Never Alcohol Use Standard Drinks/Week Comments Yes 1 (1 standard drink = 0.6 oz pur e alcohol) social Sex and Gender Information Value Date Recorded [...] 9:15 AM EST Office Visit [facility] 100 [facility] 101 [place] [address] Angela Kuo MD 100 [facility] [address] [place] [address] 07/31/2025 10:30 AM EDT Office Visit [facility] Heart & Vascular [place] [address] [phone] Jeffy Chandler MD [address] [place] [phone] documented as of this encounter Visit Diagnoses Diagnosis Hypercholesteremia Pure hypercholesterolemia Gout, unspecified cause, unspecified chronicity, unspecified site HTN (hypertension), benign Essential hypertension, benign documented in this encounter Care Teams Knitting Machine Tender Relationship Specialty Start Date End Date Abiola Dangelo PA PCP - General Internal Medicine 07/15/15 05/02/18 Bakari Pulido MD PCP - General Internal Medicine 05/03/18 08/21/18 Angela Kuo MD [address] [place] [address] PCP - General Internal Medicine 08/22/18 09/25/18 Angel Cadena MD [address] [address] PCP - General Surgery, Cardiac 09/26/18 12/13/18 Angela Kuo MD [address] [place] [address] PCP - General Internal Medicine 12/14/18 Angela Kuo MD [address] [place] [address] PCP - C[employer] Commercial Attributed 01/23/24 08/21/24 Vlad Archer MD [address] [place] [address] Mental Health Coordinator Cardiovascular Disease 09/07/18 Angel Cadena MD [address] [place] [address] Consulting Provider Surgery, Cardiac 04/07/19 Chase Tong DDS [address] [place] [address] Dentist Dentistry 04/07/19 Alessandra Nelson, RN [address] [place] [address] ICP Transition Tomb Maker Helper 04/18/19 03/18/21 Jeffy Chandler MD [address] [place] [address] Primary Mental Health Coordinator Cardiovascular Disease 05/14/21 documented as of this encounter
--- OUTSIDE RECORDS SUMMARY | 2025-01-31 18:42 | XMS_ITS | Encounter Summary ---
Author Organization [facility] Address [address] [place] [address] Care Team Providers Care Physicist Solid State Name Role Phone Vlad Archer MD Unavailable Angela Kuo MD Primary Care Provider [phone] Angel Cadena MD Unavailable Chase Tong DDS Unavailable [phone] Jeffy Chandler MD Unavailable Angela Kuo MD Unavailable [phone] Encounter Details Date Type Department Care Team (Late st Contact Info) Description 12/10/2023 Scanned Document [address] [place] [address] Emergency Medicine, Scan Social History [...] Description 04/26/2025 9:15 AM EST Office Visit [facility] [place] [address] [place] [address] Angela Kuo MD [address] [place] [address] 07/31/2025 10:30 AM EDT Office Visit [facility] Heart [facility] [place] [address] [place] [phone] Jeffy Chandler MD 420 [facility] [place] [address] documented as of this encounter Visit Diagnoses Not on filedocumented in this encounter Care Teams Physicist Solid State Relationship Specialty Start Date End Date Angela Kuo MD [address] [place] [address] PCP - General Internal Medicine 12/14/18 Angela Kuo MD [address] [place] [address] PCP - C[employer] Commercial Attributed 01/23/24 08/21/24 Vlad Archer MD Byproducts Maker Cardiovascular Disease 09/07/18 Angel Cadena MD 85 [facility] 919 [place] [address] Consulting Provider Surgery, Cardiac 04/07/19 Chase Tong DDS [address] [place] [address] Dentist Dentistry 04/07/19 Jeffy Chandler MD [address] [place] [address] Primary Byproducts Maker Cardiovascular Disease 05/14/21 documented as of this encounter
--- OUTSIDE RECORDS SUMMARY | 2025-01-31 18:42 | XMS_ITS | Clinical Summary ---
Author Organization [facility] Address [address] [place] [address] Care Team Providers Care Casting Molder Name Role Phone Vlad Archer MD Unavailable Angela Kuo MD Primary Care Provider [phone] Angel Cadena MD Unavailable [phone] Chase Tong DDS Unavailable [phone] Jeffy Chandler MD Unavailable Allergies No known active allergies Medications aspirin 81 MG tablet Aspirin 81 MG Oral Tablet Delayed Release ; Start Date: 12/10/2014; End Date: 5 Active acetaminophen (TYLENOL) 325 MG tabletIndication s:S/P AVR Take 2 tablets (650 mg total) by mouth 4 times daily (every 6 hours) as needed for mild pain, moderate pain, headaches or fever. 9 Active EPINEPHrine 0.3 mg/0.3 mL IJ auto-injection INJECT 0.3 ML (0.3 MG TOTAL) INTO THE MUSCLE ONCE FOR 1 DOSE 4 Active warfarin (Jantoven) 5 MG tabletIndication s:Anticoagulated on Coumadin TAKE 1 TABLET DAILY AT THE SAME TIME 90 tablet 3 4 Active rosuvastatin (CRESTOR) 40 MG tabletIndication s:Hypercholester olemia TAKE 1 TABLET DAILY 90 tablet 3 5 Active metoPROLOL TARTRATE (LOPRESSOR) 25 MG tabletIndication s:S/P AVR TAKE 1 TABLET EVERY 12 HOURS AROUND THE CLOCK 180 tablet 3 5 Active amLODIPine (NORVASC) 10 MG tabletIndication s:HTN (hypertension), benign TAKE 1 TABLET DAILY 90 tablet 3 5 Active allopurinol (ZYLOPRIM) 300 MG tabletIndication s:Gout, unspecified cause, unspecified chronicity, unspecified site TAKE 1 TABLET DAILY 90 tablet 3 5 Active spironolactone (ALDACTONE) 25 MG tabletIndication s:Localized edema Take 1 tablet (25 mg total) by mouth daily. 90 tablet 3 5 Active furosemide (LASIX) 40 MG tabletIndication s:Edema, unspecified type Take 1 tablet (40 mg total) by mouth daily. TAKE 1 TABLETS DAILY NEEDED FOR EDEMA 90 tablet 1 5 Active lisinopril (PRINIVIL,ZeSTRI L) 40 MG tabletIndication s:Essential hypertension Take 1 tablet (40 mg total) by mouth daily. 90 tablet 1 5 01/31/20 25 Discontin ued(Med List Clean-up/ Old Med - No E-Cancel/ No AVS) Active Problems Problem Noted Date Diagnosed Date Localized edema 03/28/2024 S/P ascending aortic replacement 05/03/2019 S/P AVR (aortic valve replacement) 04/15/2019 Overview (06/02/2022): The left ventricle is normal in size. [...] on 05/01/21, there is no significant change. Aortic stenosis with bicuspid valve 09/26/2018 Ascending aortic aneurysm 09/26/2018 Claudication 09/05/2018 Overview (09/05/2018): Added automatically from request for surgery [id number] Vitamin D deficiency 06/27/2018 LVH (left ventricular hypert rophy) due to hypertensive disease, without heart failure 05/11/2018 Benign essential hypertension 12/10/2014 Pure hypercholesterolemia 12/10/2014 Class 3 severe obesity due t o excess calories with serious comorbidity and body mass index (BMI) of 40.0 to 44.9 in adult 07/24/2014 Aortic valve disorder 08/14/2013 Cardiomegaly 08/14/2013 Obstructive sleep apnea syndrome 08/14/2013 Uric acid nephrolithiasis 08/14/2013 Allergic urticaria 08/09/2013 Impaired fasting glucose 08/09/2013 Nonspecific abnormal results of kidney function study 08/09/2013 Resolved Problems Problem Noted Date Diagnosed Date Resolved Date Gout 07/24/2014 01/16/2019 Encounters Date Type Department Care Team Description 01/30/2025 3:00 PM EDT Office Visit [facility] [address] [address] Jeffy Chandler MD S/P AVR (aortic valve replacement) (Primary Dx); Localized edema; Benign essential hypertension ; S/P ascending aortic replacement 01/30/2025 Travel 12/28/2024 Orders Only [facility] [place] [address] Isaias Barakat MD 12/20/[address] [address] Angela Kuo MD Edema, unspecified type 12/20/2024 Refill [facility] [address] [address] Kimi Klein APRN Medication Refill 12/15/2024 Scanned Document [address] [address] Primary Care, Scan 12/11/[address] [address] Angela Kuo MD 12/08/2024 9:30 AM EDT Office Visit [address] [address] Angela Kuo MD Low back pain, unspecified back pain laterality, unspecified chronicity, unspecified whether sciatica present (Primary Dx); Prediabetes; Abnormal kidney function; Essential hypertension ; Hypercholesterolemia ; Aortic stenosis with bicuspid valve; S/P AVR (aortic valve replacement); Ascending aortic aneurysm, unspecified whether ruptured; S/P ascending aortic replacement 12/08/[address] [address] Angela Kuo MD Referral 12/08/2024 Travel 11/17/2024 Orders Only [address] [address] Angela Kuo MD Anticoagulated on Coumadin (Primary Dx); Hypercholesteremia 11/17/2024 Anticoag visit [address] [address] Angela Kuo MD 11/17/2024 Orders Only [address] [address] Angela Kuo MD S/P AVR (aortic valve replacement) (Primary Dx) from Last 3 Months Immunizations Immunization Administration Dates Next Due Influenza Inactivated/Split Preservative Free IM 03/10/2019 Influenza, Quadrivalent (FLU ARIX, AFLURIA, FLULAVAL, FLUZONE) Preservative Free IM 03/04/2021 Influenza, Quadrivalent (FLU CELVAX) MDCK, Preservative Free IM 02/09/2023,02/17/2022 Influenza, Unspecified 03/07/2022 Pneumococcal Conjugate 20-Valent 01/20/2024 Tdap 03/28/2016,12/10/2014 Family History Medical History Relation Name Comments Diabetes Brother Mellitus Alcohol abuse Father Substance Abuse Father Heart disease Mother Multiple sclerosis Sister Relation Name Status Comments Brother Father Mother Sister Social History Tobacco Use Types Packs/Day Years Used Date Smoking Tobacco: Never Smokeless Tobacco: Never Tobacco Cessation:Counseling Given: Not Answered Alcohol Use Standard Drinks/Week Comments Not Currently 1 (1 standard drink = 0.6 oz pur e alcohol) social [facility] Utilities Answer Date Recorded In the past 12 months has th e electric, gas, oil, or water [employer] threatened to shut off services in your home? No 12/08/2024 Social Connection and Isolat ion Panel [NHANES] Answer Date Recorded In a typical week, how many times do you talk on the phone with family, friends, or neighbors? More than three times a week 12/08/2024 Frequency of Social Gatherin gs with Friends and Family Not on file 12/08/2024 Attends [employer] Not on file 12/08 Active Member [...] any time in the past 12 m [facility], were you homeless or living in a halfway (including now)? No 12/08/2024 Physical Activity Answer [...] Not on file Not on fi le Last Filed Vital Signs Vital Sign Reading Time Taken Comments Blood Pressure 144/68 01/30/2025 2:50 PM EDT Pulse 50 01/30/2025 2:50 PM EDT Temperature 36.4 C (97.6 F) 12/08/2024 9:11 AM EDT Respiratory Rate 16 12/08/2024 9:11 AM EDT Oxygen Saturation 96% 01/30/2025 2:50 PM EDT Inhaled Oxygen Concentration - - Weight 143 kg (315 lb) 01/30/2025 2:50 PM EDT Height 190.5 cm (6' 3 ) 01/30/2025 2:50 PM EDT Body Mass Index 39.37 01/30/2025 2:50 PM EDT Plan of Treatment Upcoming Encounters Date Type Department Care Team (Late st Contact Info) Description 04/26/2025 9:15 AM EST Office Visit [facility] [address] [place] [phone] Angela Kuo MD [address] [place], [place] [address] 07/31/2025 10:30 AM EDT Office Visit [facility] [place] [address] [place] [phone] Jeffy Chandler MD [address] [place] [address] [address] [place], [place] [id number] Health Maintenance Due Date Last Done Comments Advance Care Planning 1960 RSV Vaccine 60 years and older and Patients (1 - Risk 60-74 years 1-dose series) 2019 Influenza Vaccine 12/22/2024 03/07/2024, , 03/07/2022, Additional history exists Physical 01/19/2025 01/20/2024, 12/23, 06/27/2018 COVID-19 Vaccine ( season) 2025 03/07/2024, 02/09/2023, 02/17/2022, Additional history exists DTaP/Tdap/Td Vaccines (3 - Td or Tdap) 03/28/2026 03/28/2016, 12/10/2014 Colonoscopy 06/26/2027 06/26/2024 Hepatitis C Virus Screening Completed 03/06/2019 Pneumococcal Vaccines 50+ Completed 01/20/2024 HIV Screening Discontinued Hepatitis B Vaccines Aged Out No long er eligible based on patient's age to complete this topic Zoster (Shingles) Vaccine Discontinued Medical Devices Implanted Type Area Ventilating Equipment Installer Device Identifier Shelf Expiration Date Model / Serial / Lot [id number] Graft Vascular 40cm 8mm 30mm Glwv Antfl Ascnd Arch Dsnd Thor - [id number] Implanted:Qty: 1 on 04/11/2019 by Angel Cadena MD at [facility] Graft N/A: Heart [employer] - DIV TERUMO 10/22/2021 [id number] / [id number] / [id number] Onxace- Valve Aortic 17.8mm 27-29mm 36mm 23.4mm On-X Paloma - [id number] Implanted:Qty: 1 on 04/11/2019 by Angel Cadnea MD at [facility] Valve N/A: Heart [employer] [id number] 03/26/2023 ONXACE- / [id number] / [id number] Description:EARLENE/ PROSTHETIC HEART VALVE Procedures Procedure Name Priority Date/Time Associated Diagnosis Comments PROTIME-INR Routine 01/26/2025 8:57 AM EDT S/P AVR (aortic valve replacement) US KIDNEY AND BLADDER Routine 12/28/2024 11:41 AM EDT XR LUMBAR SPINE COMPLETE 4+ VIEWS Routine 12/08/2024 10:11 AM EDT Low back pain, unspecified back pain laterality, unspecified chronicity, unspecified whether sciatica present POCT GLYCOSYLATED HEMOGLOBIN (HGB A1C) Routine 12/08/2024 9:42 AM EDT Prediabetes PROTIME-INR Routine 12/04/2024 8:33 AM EDT Anticoagulated on Coumadin LIPID PANEL REFLEX DIRECT LDL Routine 12/04/2024 8:33 AM EDT Hypercholesteremia COMPREHENSIVE METABOLIC PANEL Routine 12/04/2024 8:33 AM EDT Hypercholesteremia PROTIME-INR Routine 11/15/2024 11:32 AM EDT S/P AVR (aortic valve replacement) HX GASTROENTEROLOGY COLONOSCOPY-SCAN Routine 06/26/2024 12:34 PM EST HEPATITIS C VIRUS (HCV) ANTIBODY Routine 03/06/2019 9:59 AM EDT Need for hepatitis C screening test from Last 3 Months or Most Recently Relevant to Health Maintenance Results * (ABNORMAL) Protime-INR (01/26/2025 8:57 AM EDT) Only the most recent of3 resultswithin the time period is included. INR 2.2(H) [facility] Comment: Reference Range 0.9-1.1 Moderate-intensity Warfarin Therapy 2.0-3.0 Higher-intensity Warfarin Therapy 3.0-4.0 Prothrombin Time (PT) 21.8(H) 9.0 - 11.5 sec [facility] Comment: For additional information, please refer to http://education.Peela/faq/FFG372 (This link is being provided for informational/ educational purposes only.) Blood Blood specimen / Unknown 01/26/2025 8:57 AM EDT 01/26/2025 8:58 AM EDT Narrative [facility] - 01/26/2025 5:28 PM EDT FASTING:NO FASTING: NO Angela Kuo MD LAB BLOOD ORDERABLES Final Result [facility] [address] [place] [address] * KIDNEY AND BLADDER (12/28/2024 11:41 AM EDT) Anatomical Region Laterality Modality Other 12/28/2024 9:45 AM EDT 12/28/2024 9:45 AM EDT Narrative 12/28/2024 8:57 PM EDT Addendum: ADDENDUM #1 Results Acknowledgement: Exam results confirmed at 9:04 AM by MA. Surya Soriano Sofia, 01/01/2025 9:05 AM. Electronically signed by: Pablito Garcia MD 01/08/2025 08:59 PM EDT RP Thank you for referring your patient to us, Pablito Garcia [phone] (Electronically Signed - 01/08/2025 20:59) Original Report: EXAMINATION: US RETROPERITONEAL COMPLETE (RENAL) CLINICAL INFORMATION: Essential (primary) hypertension. Chronic kidney disease, unspecified. COMPARISON: CTA chest, abdomen and pelvis 08/23/2018 (report only). TECHNIQUE: Real-time imaging of the kidneys and bladder. Technically difficult study secondary to bowel gas and body habitus. FINDINGS: RIGHT KIDNEY: 12.8 x 5.4 x 5.0 cm (SAG x AP x TRV). The kidney is normal in size, contour, and echogenicity. Renal cortical thickness is normal. No calculi or focal parenchymal lesions. No hydronephrosis. LEFT KIDNEY: 13.0 x 6.1 x 7.1 cm (SAG x AP x TRV). The kidney is normal in size, contour, and echogenicity. Renal cortical thickness is normal. No renal calculi or hydronephrosis. There is an exophytic hypoechoic lesion measuring 2.4 x 1.8 x 1.8 cm with no internal vascularity although does not appear anechoic. The depth of the scanning limits evaluation. Additional simple cyst is noted in the midpole measuring 2.1 cm. BLADDER: Well distended and normal. Bilateral ureteral jets are demonstrated. Prevoid bladder volume is 379.5 mL. Postvoid bladder volume is 11.1 mL. PROSTATE GLAND: The prostate gland is enlarged with a volume of 90.2 mL. IMPRESSION: Avascular hypoechoic left renal exophytic lesion likely represents a complex cyst although is incompletely characterized. Recommend CT or MRI with and without contrast to better evaluate Recommendations submitted for follow-up Electronically signed by: Pablito Garcia MD 12/28/2024 08:57 PM EDT RP Thank you for referring your patient to us, Pablito Garcia [phone] (Electronically Signed - 12/28/2024 20:57) Procedure Note Pablito Garcia MD - 01/08/2025 Addendum: ADDENDUM #1 Results Acknowledgement: Exam results confirmed at 9:04 AM by Mei Casey MA. Stacey London, 01/01/2025 9:05 AM. Electronically signed by: Pablito Garcia MD 01/08/2025 08:59 PM EDT RPWorkstation: [id number] Thank you for referring your patient to us, Pablito Garcia [phone] (Electronically Signed - 01/08/2025 20:59) Original Report: EXAMINATION: US RETROPERITONEAL COMPLETE (RENAL) CLINICAL INFORMATION: Essential (primary) hypertension. Chronic kidney disease, unspecified. COMPARISON: CTA chest, abdomen and pelvis 08/23/2018 (report only). TECHNIQUE: Real-time imaging of the kidneys and bladder. Technically difficult studysecondary to bowel gas and body habitus. FINDINGS: RIGHT KIDNEY: 12.8 x 5.4 x 5.0 cm (SAG x AP x TRV). The kidney is normalin size, contour, and echogenicity. Renal cortical thickness is normal. Nocalculi or focal parenchymal lesions. No hydronephrosis. LEFT KIDNEY: 13.0 x 6.1 x 7.1 cm (SAG x AP x TRV). The kidney is normal insize, contour, and echogenicity. Renal cortical thickness is normal. Norenal calculi or hydronephrosis. There is an exophytic hypoechoic lesionmeasuring 2.4 x 1.8 x 1.8 cm with no internal vascularity although does not appear anechoic. The depth ofthe scanning limits evaluation. Additional simple cyst is noted in themidpole measuring 2.1 cm. BLADDER: Well distended and normal. Bilateral ureteral jets aredemonstrated. Prevoid bladder volume is 379.5 mL. Postvoid bladder volumeis 11.1 mL. PROSTATE GLAND: The prostate gland is enlarged with a volume of 90.2 mL. IMPRESSION: Avascular hypoechoic left renal exophytic lesion likely represents acomplex cyst although is incompletely characterized. Recommend CT or MRIwith and without contrast to better evaluate Recommendations submitted for follow-up Electronically signed by: Pablito Garcia MD 12/28/2024 08:57 PM EDT RPWorkstation: [id number] Thank you for referring your patient to us, Pablito Garcia [phone] (Electronically Signed - 12/28/2024 20:57) Isaias Barakat MD IMG LEGACY PROCEDURES Edited R esult - Final * XR Lumbar spine complete 4+ views (12/08/2024 10:11 AM EDT) Anatomical Region Laterality Modality L-spine Computed Radiogr aphy 12/08/2024 10:0 0 AM EDT 12/08/2024 10:00 AM EDT Impressions 12/13/2024 1:23 PM EDT Mild multilevel degenerative disc disease and bilateral facet arthropathy, progressed when compared to the prior examination. Electronically signed by: Romero Temple MD 12/13/2024 01:23 PM EDT Thank you for referring your patient to us, Romero Temple MD [phone] (Electronically Signed - 12/13/2024 13:23) Narrative 12/13/2024 1:23 PM EDT EXAMINATION: XR LUMBOSACRAL SPINE CLINICAL INFORMATION: Chronic lower back pain recently worsening. COMPARISON: CT chest/abdomen/pelvis dated 08/23/2018. TECHNIQUE: Three views of the lumbosacral spine. FINDINGS: Normal vertebral body alignment. The lumbar lordosis is maintained. No acute fracture or subluxation. No loss of vertebral body height. Mild multilevel loss of intervertebral disc height with degenerative endplate changes and bilateral facet arthropathy, progressed when compared to the prior examination. No concerning lytic or blastic osseous lesion. Procedure Note Romero Temple MD - 12/13/2024 EXAMINATION: XR LUMBOSACRAL SPINE CLINICAL INFORMATION: Chronic lower back pain recently worsening. COMPARISON: CT chest/abdomen/pelvis dated 08/23/2018. TECHNIQUE: Three views of the lumbosacral spine. FINDINGS: Normal vertebral body alignment. The lumbar lordosis is maintained. Noacute fracture or subluxation. No loss of vertebral body height. Mildmultilevel loss of intervertebral disc height with degenerative endplatechanges and bilateral facet arthropathy, progressed when compared to the prior examination. No concerning lytic orblastic osseous lesion. IMPRESSION: Mild multilevel degenerative disc disease and bilateral facet arthropathy,progressed when compared to the prior examination. Electronically signed by: Romero Temple MD 12/13/2024 01:23 PM EDT RPWorkstation: [id number] Thank you for referring your patient to us, Romero Temple MD [phone] (Electronically Signed - 12/13/2024 13:23) Angela Kuo MD IMG DIAGNOSTIC IMAGING ORD ERABLES Final Result * (ABNORMAL) POCT Glycosylated Hemoglobin (Hb A1C) (12/08/2024 9:42 AM EDT) Hemoglobin A1C 6.1(A) 4.0 - 6.0 % Lot Number [id number] [employer] Pass Pass Blood 12/08/2024 9:42 AM EDT Angela Kuo MD POINT OF CARE TEST ORDERAB LES Final Result * (ABNORMAL) Lipid Panel Reflex Direct LDL (12/04/2024 8:33 AM EDT) Cholesterol, Total 147 <200 mg/dL [employer] Cholesterol, HDL 39(L) > OR = 40 mg/dL [employer] Triglycerides 206(H) <150 mg/dL [employer] Comment: If a non-fasting specimen was collected, consider repeat triglyceride testing on a fasting specimen if clinically indicated. Rebel et al. J. of Clin. Lipidol. 2015;9:129-169. LDL Cholesterol 78 mg/dL (calc) [employer] Comment: Reference range: <100 Desirable range <100 mg/dL for primary prevention; <70 mg/dL for patients with CHD or diabetic patients with > or = 2 CHD risk factors. LDL-C is now calculated using the Dontae-Marcia calculation, which is a validated novel method providing better accuracy than the Friedewald equation in the estimation of LDL-C. Dontae WADSWORTH et al. MARIELLE. 2013;310(19): 5380-9846 (http://education.[employer]faq/EHP103) Cholesterol/HDL Ratio 3.8 <5.0 (calc) [employer] Non HDL Chol. (LDL+VLDL) 108 <130 mg/dL (calc) [employer] Comment: For patients with diabetes plus 1 major ASCVD risk factor, treating to a non-HDL-C goal of <100 mg/dL (LDL-C of <70 mg/dL) is considered a therapeutic option. Blood Blood specimen / Unknown 12/04/2024 8:33 AM EDT 12/04/2024 8:35 AM EDT Narrative [facility] - 12/04/2024 11:34 PM EDT FASTING:YES FASTING: YES us Angela Kuo MD LAB BLOOD ORDERABLES Final Result [facility] [address] [place] [id number] * (ABNORMAL) Comprehensive Metabolic Panel (12/04/2024 8:33 AM EDT) Glucose 109(H) 65 - 99 mg/dL [employer] Comment: Fasting reference interval For someone without known diabetes, a glucose value between 100 and 125 mg/dL is consistent with prediabetes and should be confirmed with a follow-up test. Blood Urea Nitrogen (BUN) 30(H) 7 - 25 mg/dL [employer] Creatinine 1.46(H) 0.70 - 1.35 mg/dL [employer] Creatinine w/ eGFR 53(L) > OR = 60 mL/min/1. 73m2 [employer] BUN/Creatinine Ratio 21 6 - 22 (calc) [employer] Sodium 138 135 - 146 mmol/L [employer] Potassium 4.4 3.5 - 5.3 mmol/L [employer] Chloride 104 98 - 110 mmol/L [employer] CO2 24 20 - 32 mmol/L [employer] Calcium 9.5 8.6 - 10.3 mg/dL [employer] Protein, Total 6.5 6.1 - 8.1 g/dL [employer] Albumin 4.1 3.6 - 5.1 g/dL [employer] Globulin 2.4 1.9 - 3.7 g/dL (calc) [employer] Albumin/Globulin Ratio 1.7 1.0 - 2.5 (calc) [employer] Bilirubin, Total 1.2 0.2 - 1.2 mg/dL [employer] Alkaline Phosphatase 58 35 - 144 U/L [employer] Aspartate Aminotrans (AST) 15 10 - 35 U/L [employer] Alanine Aminotrans (ALT) 15 9 - 46 U/L [employer] Blood Blood specimen / Unknown 12/04/2024 8:33 AM EDT 12/04/2024 8:35 AM EDT Narrative [facility] - 12/04/2024 11:34 PM EDT FASTING:YES FASTING: YES us Angela Kuo MD LAB BLOOD ORDERABLES Final Result [facility] [address] [place] [id number] * HX GASTROENTEROLOGY COLONOSCOPY-SCAN (06/26/2024 12:34 PM EST) us Scan Gastroenterology HX AMB PROCEDURES Edited R esult - Final * Hepatitis C Virus (HCV) Antibody (03/06/2019 9:59 AM EDT) Hepatitis C Antibody NON-REACT NADER NON-REACT NADER [facility] Hepatitis C Antibody (s/co) 0.03 <1.00 [facility] Comment: HCV antibody was non-reactive. There is no laboratory evidence of HCV infection. In most cases, no further action is required. However, if recent HCV exposure is suspected, a test for HCV RNA (test code 42996) is suggested. For additional information please refer to http://education.Peela/faq/IMY39f3 (This link is being provided for informational/ educational purposes only.) Blood specimen (specimen) 03/06/2019 9:59 AM EDT 03/06/2019 10:00 AM EDT Narrative [facility] - 03/07/2019 4:40 AM EDT FASTING:YES FASTING: YES Resulting Agency Comment Performing Organization Information: Site ID: [id number] Name: [facility] Address: [address] [place] [address], [place] [address] Director: Dav Davidson MD Angela Kuo MD LAB BLOOD ORDERABLES Final Result [facility] [address], [place] [address] from Last 3 Months or Most Recently Relevant to Health Maintenance Insurance [facility] Member Subscriber Plan / Payer (Ef fective 2024-Present) Name:Dylan Suarez Relation to Subscriber:Self Name:Dylan Suarez Payer ID:[id number] (NAIC) Type:Not on file Address: [facility] [id number] [place] [id number] MEDICARE PART A Advance Directives * Full Code (Latest Code Status on File) Date Activated Date Inactivated Comments 04/11/2019 8:06 PM * Full Code Date Activated Date Inactivated Comments 09/09/2018 9:23 AM 04/11/2019 8:52 AM Care Teams Casting Molder Relationship Specialty Start Date End Date Angela Kuo MD [address] [place] [address] PCP - General Internal Medicine 12/14/18 Vlad Archer MD Customer Service Receptionist Cardiovascular Disease 09/07/18 Angel Cadena MD [address] [address] Consulting Provider Surgery, Cardiac 04/07/19 Chase Tong DDS [address] [place] [address] Dentist Dentistry 04/07/19 Jeffy Chandler MD [address] [place] [address] Primary Customer Service Receptionist Cardiovascular Disease 05/14/21
--- OUTSIDE RECORDS SUMMARY | 2025-01-31 18:42 | XMS_ITS | Encounter Summary ---
Author Organization Formerly [facility] Address 100 [place] [address] Care Team Providers Care Oil Spot Washer Name Role Phone Vlad Archer MD Unavailable Angela Kuo MD Primary Care Provider [phone] Angle Cadena MD Unavailable [phone] Chase Tong DDS Unavailable Alessandra Nelson RN Unavailable Jeffy Chandler MD Unavailable Angela Kuo MD Unavailable [phone] Encounter Details Date Type Department Care Team (Late st Contact Info) Description 04/27/2019 Scanned Document GENERIC EXTERNAL DATA DEPARTMENT Vlad Archer MD [address] [address] Social History Tobacco Use Types Packs/Day Years [...] Description 04/26/2025 9:15 AM EST Office Visit [facility] [address] [place] [address] Angela Kuo MD 100 [facility] [address] [place] [address] 07/31/2025 10:30 AM EDT Office Visit [facility] [place] 7 [facility] 201 [place] [phone] Jeffy Chandler MD [address] [place] [address] [place], [place] [address]6623 [phone] documented as of this encounter Visit Diagnoses Not on filedocumented in this encounter Care Teams Oil Spot Washer Relationship Specialty Start Date End Date Angela Kuo MD 100 [facility] [address] [place] [address] PCP - General Internal Medicine 12/14/18 Angela Kuo MD 100 [facility] [address] [place] [address] PCP - Cigna Commercial Attributed 01/23/24 08/21/24 Vlad Archer MD [place] Cardiovascular Disease 09/07/18 Angel Cadena MD 85 [facility] 919 [place] [address] Consulting Provider Surgery, Cardiac 04/07/19 Chase Tong DDS [address] [place] [address] Dentist Dentistry 04/07/19 Alessandra Nelson, JASIEL [address] 2nd [place] [address] ICP Transition Cripple Worker 04/18/19 03/18/21 Jeffy Chandler MD [address] [place], [place] [address] [phone] Primary [place] Cardiovascular Disease 05/14/21 documented as of this encounter
--- OUTSIDE RECORDS SUMMARY | 2025-01-31 18:42 | XMS_ITS | Encounter Summary ---
Author Organization [facility] Address 100 [place] [address] Care Team Providers Care It Security Engineer Name Role Phone Vlad Archer MD Unavailable Angela Kuo MD Primary Care Provider [phone]- [phone] Angel Cadena MD Unavailable [phone] Chase Tong DDS Unavailable [phone] Jeffy Chandler MD Unavailable Angela Kuo MD Unavailable [phone] Encounter Details Date Type Department Care Team (Late st Contact Info) Description 05/22/2024 Scanned Document [address] [facility]7 [place] [phone] Provider, Generic Social History Tobacco Use Types Packs/Day Years [...] Description 04/26/2025 9:15 AM EST Office Visit [facility] [address] [place] [address] Angela Kuo MD [address] [place] [address] 07/31/2025 10:30 AM EDT Office Visit [facility] [place] 7 [facility] 201 [place] [address] Jeffy Chandler MD [address] [place] [address] [place] [address] documented as of this encounter Visit Diagnoses Not on filedocumented in this encounter Care Teams It Security Engineer Relationship Specialty Start Date End Date Angela Kuo MD [address] [place] [address] PCP - General Internal Medicine 12/14/18 Angela Kuo MD [address] [place] [address] PCP - Cigna Commercial Attributed 01/23/24 08/21/24 Vlad Archer MD Access Developer Cardiovascular Disease 09/07/18 Angel Cadena MD 85 [facility] 919 [place] [address] Consulting Provider Surgery, Cardiac 04/07/19 Chase Tong DDS [address] [place] [address] Dentist Dentistry 04/07/19 Jeffy Cahndler MD 420 [place] [address] Primary Access Developer Cardiovascular Disease 05/14/21 documented as of this encounter
--- OUTSIDE RECORDS SUMMARY | 2025-01-31 18:42 | XMS_ITS | Encounter Summary ---
Author Organization [facility] Address [address] [place] [address] Care Team Providers Care Design Engineer Name Role Phone Vlad Archer MD Unavailable Angela Kuo MD Primary Care Provider [phone] Angel Cadena MD Unavailable [phone] Chase Tong DDS Unavailable Jeffy Chandler MD Unavailable Angela Kuo MD Unavailable Encounter Details Date Type Department Care Team (Late st Contact Info) Description 01/16/2022 Orders Only [facility] 100 [facility] [address] [place] [phone] Angela Kuo MD 100 [facility] [address] [place] [address] Anticoagulated on Coumadin (Primary Dx) Social History Tobacco Use Types Packs/Day Years [...] Description 04/26/2025 9:15 AM EST Office Visit [facility] 100 [facility] 101 [place] [address] Angela Kuo MD 100 [facility] 101 [place] [address] 07/31/2025 10:30 AM EDT Office Visit [facility] Heart & Vascular [place] 7 [facility] 201 [place] [phone] Jeffy Chandler MD [address] [place] [address] [place] 77[address] [phone] documented as of this encounter Visit Diagnoses Diagnosis Anticoagulated on Coumadin- Primary documented in this encounter Care Teams Design Engineer Relationship Specialty Start Date End Date Angela Kuo MD [address] [address] PCP - General Internal Medicine 12/14/18 Angela Kuo MD [address] [address] PCP - Cigna Commercial Attributed 01/23/24 08/21/24 Vlad Archer MD Education Faculty Member Cardiovascular Disease 09/07/18 Angel Cadena MD [address] [place] [address] 919 [place] [address] Consulting Provider Surgery, Cardiac 04/07/19 Chase Tong DDS [address] [place] [address] Dentist Dentistry 04/07/19 Jeffy Chandler MD [facility] [place] [address] Primary Education Faculty Member Cardiovascular Disease 05/14/21 documented as of this encounter
--- OUTSIDE RECORDS SUMMARY | 2025-01-31 18:42 | XMS_ITS | Encounter Summary ---
Author Organization [facility] Address 100 [place] [address] Care Team Providers Care Commission Sales Associate Name Role Phone Vlad Archer MD Unavailable Angela Kuo MD Primary Care Provider [phone] Angel Cadena MD Unavailable Chase Tong DDS Unavailable [phone] Alessandra Nelson RN Unavailable Jeffy Chandler MD Unavailable Angela Kuo MD Unavailable [phone] Reason for Visit * Reason Comments Medication Refill Encounter Details Date Type Department Care Team (Late st Contact Info) Description 03/14/2019 Refill [facility] 100 [facility] [address] [place] [address] Angela Kuo MD 100 [facility] [address] [place] [address] Hypercholesteremia; Gout, unspecified cause, unspecified chronicity, unspecified [...] Description 04/26/2025 9:15 AM EST Office Visit [facility] 100 [facility] 101 [place] [address] Angela Kuo MD [address] [address] 07/31/2025 10:30 AM EDT Office Visit [facility] Heart & Vascular [place] 7 [facility] 201 [place] [address] Jeffy Chandler MD [address] [place] [address] [place] [address] [phone] documented as of this encounter Visit Diagnoses Diagnosis Hypercholesteremia Pure hypercholesterolemia Gout, unspecified cause, unspecified chronicity, unspecified site HTN (hypertension), benign Essential hypertension, benign documented in this encounter Care Teams Commission Sales Associate Relationship Specialty Start Date End Date Angela Kuo MD [address] [address] PCP - General Internal Medicine 12/14/18 Angela Kuo MD [address] [address] PCP - Cigna Commercial Attributed 01/23/24 08/21/24 Vlad Archer MD Certified Vehicle Fire Investigator Cardiovascular Disease 09/07/18 Angel Cadena MD [address] [address] Consulting Provider Surgery, Cardiac 04/07/19 Chase Tong, RYANS [address] [facility] [place] [address] Dentist Dentistry 04/07/19 Alessandra Nelson, JASIEL 17 [facility] 2nd [place] [address] ICP Transition Knit Tubing Dyer 04/18/19 03/18/21 Jeffy Chandler MD [address] [place] [address] Primary Certified Vehicle Fire Investigator Cardiovascular Disease 05/14/21 documented as of this encounter
--- OUTSIDE RECORDS SUMMARY | 2025-01-31 18:42 | XMS_ITS | Encounter Summary ---
Author Organization [facility] Address [address] [place] [address] Care Team Providers Care Courtesy Driver Name Role Phone Vlad Archer MD Unavailable Angela Kuo MD Primary Care Provider [phone] Angel Cadena MD Unavailable [phone] Chase Tong DDS Unavailable [phone] Jeffy Chandler MD Unavailable Encounter Details Date Type Department Care Team (Late st Contact Info) Description 12/15/2024 Scanned Document [address] [phone] Primary Care, Scan Social History Tobacco Use Types Packs/Day Years Used Date Smoking Tobacco: Never Smokeless Tobacco: Never Alcohol Use Standard Drinks/Week Comments Not Currently 1 (1 standard drink = 0.6 oz pur e alcohol) social [facility] Utilities Answer Date Recorded In the past 12 months has [employer] electric, gas, oil, or water company threatened [...] and Family Not on file 12/08/2024 Attends [employer] Not on file 12/08 Active Member [...] any time in the past 12 m [facility], were you homeless or living in a care home (including now)? No 12/08/2024 Physical Activity [...] Description 04/26/2025 9:15 AM EST Office Visit [facility] 100 [facility] 101 [place] [address] Angela Kuo MD 100 [place] [address] 07/31/2025 10:30 AM EDT Office Visit [facility] [place] 7 [facility] 201 [place] [address] Jeffy Chandler MD [address] [place] [address] [place], [place] [address]365 [phone] documented as of this encounter Visit Diagnoses Not on filedocumented in this encounter Care Teams Courtesy Driver Relationship Specialty Start Date End Date Angela Kuo MD [address] [place] [address] PCP - General Internal Medicine 12/14/18 Vlad Archer MD Roads Supervisor Cardiovascular Disease 09/07/18 Angel Cadena MD 85 [facility] 919 [place] [address] Consulting Provider Surgery, Cardiac 04/07/19 Chase Tong DDS [address] [place] [address] Dentist Dentistry 04/07/19 Jeffy Chandler MD 420 [place] [address] Primary Roads Supervisor Cardiovascular Disease 05/14/21 documented as of this encounter
--- OUTSIDE RECORDS SUMMARY | 2025-01-31 18:42 | XMS_ITS | Encounter Summary ---
Author Organization [facility] Address 100 [place] [address] Care Team Providers Care Recreation Assistant Name Role Phone Abiola Dangelo Primary Care Provider Bakari Pulido MD Primary Care Provider Angela Kuo MD Primary Care Provider [phone] Vlad Archer MD Unavailable Angel Cadena MD Primary Care Provider Angela Kuo MD Primary Care Provider [phone] Angel Cadena MD Unavailable Chase Tong DDS Unavailable Alessandra Nelson RN Unavailable Jeffy Chandler MD Unavailable Angela Kuo MD Unavailable Reason for Visit * Reason Comments Medication Refill Encounter Details Date Type Department Care Team (Late st Contact Info) Description 08/23/[address] [place] [address] Abiola Dangelo PA [address] [place] [address] [address] [place], [place] [phone] Hypercholesteremia; Gout, unspecified cause, unspecified chronicity, unspecified [...] Description 04/26/2025 9:15 AM EST Office Visit [facility] [place] 100 [facility] 101 [place] [address] Angela Kuo MD 100 [facility] [address] [place] [address] 07/31/2025 10:30 AM EDT Office Visit [facility] Heart [facility] [place] [address] [phone] Jeffy Chandler MD [address] [place] [address] documented as of this encounter Visit Diagnoses Diagnosis Hypercholesteremia Pure hypercholesterolemia Gout, unspecified cause, unspecified chronicity, unspecified site HTN (hypertension), benign Essential hypertension, benign documented in this encounter Care Teams Recreation Assistant Relationship Specialty Start Date End Date Abiola Dangelo PA PCP - General Internal Medicine 07/15/15 05/02/18 Bakari Pulido MD PCP - General Internal Medicine 05/03/18 08/21/18 Angela Kuo MD [address] [place] [address] PCP - General Internal Medicine 08/22/18 09/25/18 Angel Cadena MD [address] [address] PCP - General Surgery, Cardiac 09/26/18 12/13/18 Angela Kuo MD [address] [place] [address] PCP - General Internal Medicine 12/14/18 Angela Kuo MD [address] [place] [address] PCP - Cigna Commercial Attributed 01/23/24 08/21/24 Vlad Archer MD [address] [place] [address] Supervisor Dry Cleaning Cardiovascular Disease 09/07/18 Angel Cadena MD [address] [place] [address] Consulting Provider Surgery, Cardiac 04/07/19 Chase Tong DDS [address] [place], [place] [address] [address] Dentist Dentistry 04/07/19 Alessandra Nelson, RN [address] 2nd [place] [address] ICP Transition Stove Tender 04/18/19 03/18/21 Jeffy Chandler MD [address] [place] [address] Primary Supervisor Dry Cleaning Cardiovascular Disease 05/14/21 documented as of this encounter
--- OUTSIDE RECORDS SUMMARY | 2025-01-31 18:42 | XMS_ITS | Encounter Summary ---
Author Organization [facility] Address 100 [place] [address] Care Team Providers Care Senior Network Security Engineer Name Role Phone Vlad Archer MD Unavailable Angela Kuo MD Primary Care Provider [phone] Angel Cadena MD Unavailable [phone] Chase Tong DDS Unavailable Jeffy Chandler MD Unavailable Angela Kuo MD Unavailable [phone] Reason for Visit * Reason Comments Medication Refill Encounter Details Date Type Department Care Team (Late st Contact Info) Description 12/11/[address] [place] [phone] Angela Kuo MD [address] [place] [address] [address] [place] [address] S/P AVR Social History Tobacco Use Types Packs/Day Years [...] Description 04/26/2025 9:15 AM EST Office Visit [facility] 100 [facility] 101 [place] [address] Angela Kuo MD [address] [place] [address] 07/31/2025 10:30 AM EDT Office Visit [facility] Heart & Vascular [place] 7 [facility] 201 [place] [address] Jeffy Chandler MD [address] [place] [address] documented as of this encounter Visit Diagnoses Diagnosis S/P AVR documented in this encounter Care Teams Senior Network Security Engineer Relationship Specialty Start Date End Date Angela Kuo MD [address] [place] [address] PCP - General Internal Medicine 12/14/18 Angela Kuo MD [address] [place] [address] PCP - Cigna Commercial Attributed 01/23/24 08/21/24 Vlad Archer MD Newscast Producer Cardiovascular Disease 09/07/18 Angel Cadena MD [address] [address] Consulting Provider Surgery, Cardiac 04/07/19 Chase Tong DDS 250 [place] [address] Dentist Dentistry 04/07/19 Jeffy Chandler MD [address] [place] [address] Primary Newscast Producer Cardiovascular Disease 05/14/21 documented as of this encounter
--- OUTSIDE RECORDS SUMMARY | 2025-01-31 18:42 | XMS_ITS | Encounter Summary ---
Author Organization [facility] Address [address] [place] [address] Care Team Providers Care Operating Systems Specialist Name Role Phone Vlad Archer MD Unavailable Angela Kuo MD Primary Care Provider [phone] Angel Cadena MD Unavailable [phone] Chase Tong DDS Unavailable Jeffy Chandler MD Unavailable Reason for Visit * Reason Onset Date Comments Referral 12/08/2024 Encounter Details Date Type Department Care Team (Late st Contact Info) Description 12/08/2024 Telephone Surgery [facility] [address] [place] [address] Angela Kuo MD [address] [place] [address] Referral Social History Tobacco Use Types Packs/Day Years [...] and Family Not on file 12/08/2024 Attends [employer] Services Not on file 12/08 Active Member [...] any time in the past 12 m [facility], were you homeless or living in a [...] less 12/08/2024 9:06 AM EDT Wan Heredia * Q2: How many drinks containing alcohol do you have on a typical day when you are drinking? Answer Date of Assessment Author 1 or 2 12/08/2024 9:06 AM EDT Wan Heredia documented as of this encounter Miscellaneous Notes * Telephone Encounter - Crissy Castillo MA - 12/08/2024 11:21 AM EDT T/c to Pt, provided info below. * Telephone Encounter - Angela Kuo MD - 12/08/2024 11:05 AM EDT Wrong number on referral Please give him this number to call ([phone]) 115 [facility] ([address]) documented in this encounter Plan of Treatment Upcoming Encounters Date Type Department Care Team ([facility] Contact Info) Description 04/26/2025 9:15 AM EST Office Visit [facility] [address] [place] [address] Angela Kuo MD [address] [place] [address] 07/31/2025 10:30 AM EDT Office Visit [facility] Heart [facility] [place] [address] [place] 201 [place] [address] Jeffy Chandler MD 420 [place] [phone] documented as of this encounter Visit Diagnoses Not on filedocumented in this encounter Care Teams Operating Systems Specialist Relationship Specialty Start Date End Date Angela Kuo MD [address] [place] [address] PCP - General Internal Medicine 12/14/18 Vlad Archer MD Application Software Developer Cardiovascular Disease 09/07/18 Angel Cadena MD 85 [facility] 919 [place] [address] Consulting Provider Surgery, Cardiac 04/07/19 Chase Tong DDS [address] [place] [address] Dentist Dentistry 04/07/19 Jeffy Chandler MD 420 [place] [address] Primary Application Software Developer Cardiovascular Disease 05/14/21 documented as of this encounter
--- OUTSIDE RECORDS SUMMARY | 2025-01-31 18:42 | XMS_ITS | Encounter Summary ---
Author Organization [facility] Address 100 [place] [address] Care Team Providers Care Packing Room Worker Name Role Phone Vlad Archer MD Unavailable Angela Kuo MD Primary Care Provider [phone] Angel Cadena MD Unavailable [phone] Chase Tong DDS Unavailable [phone] Jeffy Chandler MD Unavailable Angela Kuo MD Unavailable [phone] Encounter Details Date Type Department Care Team (Late st Contact Info) Description 03/01/2024 Scanned Document [facility] [address] [place] [address] Otolaryngology, Scan Social History Tobacco Use Types Packs/Day [...] Description 04/26/2025 9:15 AM EST Office Visit [facility] [address] [place] [address] Angela Kuo MD [address] [place] [address] 07/31/2025 10:30 AM EDT Office Visit [facility] Heart & Vascular [place] 7 [facility] 201 [place] [address] Jeffy Chandler MD [address] [place] [address] [place] [address] documented as of this encounter Visit Diagnoses Not on filedocumented in this encounter Care Teams Packing Room Worker Relationship Specialty Start Date End Date Angela Kuo MD [address] [place] [address] PCP - General Internal Medicine 12/14/18 Angela Kuo MD [address] [place] [address] PCP - Cigna Commercial Attributed 01/23/24 08/21/24 Vlad Archer MD Sales And Service Advisor Cardiovascular Disease 09/07/18 Angel Cadena MD 85 [facility] 919 [place] [address] Consulting Provider Surgery, Cardiac 04/07/19 Chase Tong DDS [address] [place] [address] Dentist Dentistry 04/07/19 Jeffy Chandler MD 420 [place] [address] Primary Sales And Service Advisor Cardiovascular Disease 05/14/21 documented as of this encounter
--- OUTSIDE RECORDS SUMMARY | 2025-01-31 18:42 | XMS_ITS | Encounter Summary ---
Author Organization [facility] Address [address] [place] [address] Care Team Providers Care Speech And Language Tutor Name Role Phone Abiola Dangelo Primary Care Provider Bakari Pulido MD Primary Care Provider Angela Kuo MD Primary Care Provider [phone] Vlad Archer MD Unavailable Angel Cadena MD Primary Care Provider Angela Kuo MD Primary Care Provider [phone] Angel Cadena MD Unavailable [phone] Chase Tong DDS Unavailable [phone] Alessandra Nelson RN Unavailable Jeffy Chandler MD Unavailable Angela Kuo MD Unavailable Encounter Details Date Type Department Care Team (Late st Contact Info) Description 01/10/2017 Scanned Document [address] [place] [address] Provider, Generic Social History Tobacco Use Types [...] 04/26/2025 9:15 AM EST Office Visit [facility] [address] [place] [address] Angela Kuo MD [address] [place] [address] 07/31/2025 10:30 AM EDT Office Visit [facility] [place] 7 [facility] 201 [place] [address] Jeffy Chandler MD [address] [place] [address] [place] [address] documented as of this encounter Visit Diagnoses Not on filedocumented in this encounter Care Teams Speech And Language Tutor Relationship Specialty Start Date End Date Abiola Dangelo PA PCP - General Internal Medicine 07/15/15 05/02/18 Bakari Pulido MD PCP - General Internal Medicine 05/03/18 08/21/18 Angela Kuo MD [address] [place] [address] PCP - General Internal Medicine 08/22/18 09/25/18 Angel Cadena MD [address] [address] PCP - General Surgery, Cardiac 09/26/18 12/13/18 Angela Kuo MD [address] [place] [address] PCP - General Internal Medicine 12/14/18 Angela Kuo MD [address] [place] [address] PCP - Cigna Commercial Attributed 01/23/24 08/21/24 Vlad Archer MD [address] [place] [address] Mental Health Assistant Cardiovascular Disease 09/07/18 Angel Cadena MD [address] [address] Consulting Provider Surgery, Cardiac 04/07/19 Chase Tong DDS [address] [place], [place] [address] Dentist Dentistry 04/07/19 Alessandra Nelson, JASIEL [address] 2nd [place] [address] ICP Transition Marble And Granite Polisher 04/18/19 03/18/21 Jeffy Chandler MD 420 [place] [address] Primary Mental Health Assistant Cardiovascular Disease 05/14/21 documented as of this encounter
--- OUTSIDE RECORDS SUMMARY | 2025-01-31 18:42 | XMS_ITS | Encounter Summary ---
Author Organization [facility] Address [address] [place] [address] Care Team Providers Care Meter Supervisor Name Role Phone Angela Kuo MD Primary Care Provider [phone] Vlad Archer MD Unavailable Angel Cadena MD Primary Care Provider [phone] Angela Kuo MD Primary Care Provider [phone] Angel Cadena MD Unavailable [phone] Chase Tong DDS Unavailable Alessandra Nelson RN Unavailable Jeffy Chandler MD Unavailable Angela Kuo MD Unavailable Encounter Details Date Type Department Care Team (Late st Contact Info) Description 09/09/2018 Scanned Document [address] [place] [address] Cardiology, Scan Social History Tobacco Use Types Packs/Day [...] Description 04/26/2025 9:15 AM EST Office Visit [facility] [address] [place] [address] Angela Kuo MD [address] [place] [address] 07/31/2025 10:30 AM EDT Office Visit [facility] Heart & V[facility] [place] [address] [place] [address] Jeffy Chandler MD [address] [place] [address] [place] [address] documented as of this encounter Procedures Procedure Name Priority Date/Time Associated Diagnosis Comments CARDIAC CATHETERIZATION 09/09/2018 documented in this encounter Results * CARDIAC CATHETERIZATION (09/09/2018) Anatomical Region Laterality Modality Other us Scan Cardiology CV CARDIAC CATH ORDERABLES Final Result documented in this encounter Visit Diagnoses Not on filedocumented in this encounter Care Teams Meter Supervisor Relationship Specialty Start Date End Date Angela Kuo MD [address] [place] [address] PCP - General Internal Medicine 08/22/18 09/25/18 Angel Cadena MD 85 [facility] 919 [place] [address] PCP - General Surgery, Cardiac 09/26/18 12/13/18 Angela Kuo MD [address] [place] [address] PCP - General Internal Medicine 12/14/18 Angela Kuo MD [address] [place] [address] PCP - Cigna Commercial Attributed 01/23/24 08/21/24 Vlad Archer MD [address] [place] [address] Dental Hygienist Mobile Coordinator Cardiovascular Disease 09/07/18 Angel Cadena MD [address] [address] Consulting Provider Surgery, Cardiac 04/07/19 Chase Tong DDS [address] [place] [address] Dentist Dentistry 04/07/19 Alessandra Nelson, JASIEL [address]nd [place] [address] ICP Transition First Aid Attendant 04/18/19 03/18/21 Jeffy Chandler MD 420 [place] [address] Primary Dental Hygienist Mobile Coordinator Cardiovascular Disease 05/14/21 documented as of this encounter
--- OUTSIDE RECORDS SUMMARY | 2025-01-31 18:42 | XMS_ITS | Encounter Summary ---
Author Organization [facility] Address 100 [place] [address] Care Team Providers Care Oil Heater Operator Name Role Phone Vlad Archer MD Unavailable Angela Kuo MD Primary Care Provider [phone] Angel Cadena MD Unavailable [phone] Chase Tong DDS Unavailable [phone] Jeffy Chandler MD Unavailable Angela Kuo MD Unavailable [phone] Encounter Details Date Type Department Care Team (Late st Contact Info) Description 05/22/2024 Scanned Document [address] [facility]7 [place] [phone] Provider, Generic Social History Tobacco Use Types [...] 04/26/2025 9:15 AM EST Office Visit [facility] [address] [place] [address] Angela Kuo MD [address] [place] [address] 07/31/2025 10:30 AM EDT Office Visit [facility] Heart & Vascular [place] [facility] [place] [address] Jeffy Chandler MD [address] [place] [address] [place] [address] documented as of this encounter Visit Diagnoses Not on filedocumented in this encounter Care Teams Oil Heater Operator Relationship Specialty Start Date End Date Angela Kuo MD [address] [place] [address] PCP - General Internal Medicine 12/14/18 Angela Kuo MD [address] [place] [address] PCP - Cigna Commercial Attributed 01/23/24 08/21/24 Vlad Archer MD Photovoltaic Solar Cell Designer Cardiovascular Disease 09/07/18 Angel Cadena MD 85 [facility] 919 [place] [address] Consulting Provider Surgery, Cardiac 04/07/19 Chase Tong DDS [address] [place] [address] Dentist Dentistry 04/07/19 Jeffy Chandler MD 420 [place] [address] Primary Photovoltaic Solar Cell Designer Cardiovascular Disease 05/14/21 documented as of this encounter
--- OUTSIDE RECORDS SUMMARY | 2025-01-31 18:42 | XMS_ITS | Encounter Summary ---
Author Organization [facility] Address 100 [place] [address] Care Team Providers Care American Board Certified Orthotist Name Role Phone Angela Kuo MD Primary Care Provider [phone] Vlad Archer MD Unavailable Angel Cadena MD Primary Care Provider [phone] Anglea Kuo MD Primary Care Provider [phone] Angel Cadena MD Unavailable Chase Tong DDS Unavailable [phone] Alessandra Nelson RN Unavailable Jeffy Chandler MD Unavailable Angela Kuo MD Unavailable [phone] Encounter Details Date Type Department Care Team (Late st Contact Info) Description 09/09/2018 Scanned Document [facility] Heart & Vascular [place] 100 [facility] [address] [place] [address] Vlad Archer MD [address] [address] Social History Tobacco Use Types Packs/Day Years [...] [facility] [address] [place] [address] Angela Kuo MD [address] [place] [address] 07/31/2025 10:30 AM EDT Office Visit [facility] Heart & Vascular [place] 7 [facility] 201 [place] [address] Jeffy Chandler MD [address] [place] [address] [place], [place] [phone] documented as of this encounter Visit Diagnoses Not on filedocumented in this encounter Care Teams American Board Certified Orthotist Relationship Specialty Start Date End Date Angela Kuo MD 100 [facility] [address] [place] [address] PCP - General Internal Medicine 08/22/18 09/25/18 Angel Cadena MD 85 [facility] 919 [place] [address] PCP - General Surgery, Cardiac 09/26/18 12/13/18 Angela Kuo MD [address] [place] [address] PCP - General Internal Medicine 12/14/18 Angela Kuo MD [address] [place] [address] PCP - Cigna Commercial Attributed 01/23/24 08/21/24 Vlad Archer MD [address] [place] [address] Accounts Receivable Assistant Cardiovascular Disease 09/07/18 Angel Cadena MD [address] [address] Consulting Provider Surgery, Cardiac 04/07/19 Chase Tong DDS [address] [place] [address] Dentist Dentistry 04/07/19 Alessandra Nelson, JASIEL [address] [facility] 2nd [place] [address] ICP Transition Respiratory Care Practitioner 04/18/19 03/18/21 Jeffy Chandler MD [address] [place] [address] Primary Accounts Receivable Assistant Cardiovascular Disease 05/14/21 documented as of this encounter
--- OUTSIDE RECORDS SUMMARY | 2025-01-31 18:42 | XMS_ITS | Encounter Summary ---
Author Organization [facility] Address 100 [place] [address] Care Team Providers Care Financial Analysis Consultant Name Role Phone Abiola Dangelo Primary Care Provider Bakari Pulido MD Primary Care Provider [phone] Angela Kuo MD Primary Care Provider [phone] Vlad Archer MD Unavailable Angel Cadena MD Primary Care Provider [phone] Angela Kuo MD Primary Care Provider [phone] Angel Cadena MD Unavailable Chase Tong DDS Unavailable Alessandra Nelson RN Unavailable Jeffy Chandler MD Unavailable Angela Kuo MD Unavailable Reason for Visit * Reason Comments Medication Refill Encounter Details Date Type Department Care Team (Late st Contact Info) Description 03/28/[address] [place] [address] Abiola Dangelo PA [address] [place] [address] [address] [place], [place] [id number] Hyperlipidemia Social History Tobacco Use Types Packs/Day Years Used Date Smoking Tobacco: Never Alcohol Use Standard Drinks/Week Comments Yes 0 (1 standard drink = 0.6 oz [...] Description 04/26/2025 9:15 AM EST Office Visit [facility] [address] [place] [address] [address] Angela Kuo MD [address] [address] 07/31/2025 10:30 AM EDT Office Visit [facility] Heart & Vascular [place] [address] [phone] Jeffy Chandler MD [address] [place] [address] documented as of this encounter Visit Diagnoses Diagnosis Hyperlipidemia Other and unspecified hyperlipidemia documented in this encounter Care Teams Financial Analysis Consultant Relationship Specialty Start Date End Date Abiola Dangelo PA PCP - General Internal Medicine 07/15/15 05/02/18 Bakari Pulido MD PCP - General Internal Medicine 05/03/18 08/21/18 Angela Kuo MD [address] [place] [address] PCP - General Internal Medicine 08/22/18 09/25/18 Angel Cadena MD [address] [address] PCP - General Surgery, Cardiac 09/26/18 12/13/18 Angela Kuo MD [address] [place] [address] PCP - General Internal Medicine 12/14/18 Angela Kuo MD [address] [place] [address] PCP - Cigna Commercial Attributed 01/23/24 08/21/24 Vlad Archer MD [address] [place] [address] Survey Research Associate Cardiovascular Disease 09/07/18 Angel Cadena MD [address] [address] Consulting Provider Surgery, Cardiac 04/07/19 Chase Tong DDS [address] [place] [address] Dentist Dentistry 04/07/19 Alessandra Nelson, JASIEL [address] 2nd [place] [address] ICP Transition Bicycle Inspector 04/18/19 03/18/21 Jeffy Chandler MD 420 [place] [address] Primary Survey Research Associate Cardiovascular Disease 05/14/21 documented as of this encounter
--- OUTSIDE RECORDS SUMMARY | 2025-01-31 18:42 | XMS_ITS | Encounter Summary ---
Author Organization [facility] Address 100 [place] [address] Care Team Providers Care Performance Reporter Name Role Phone Vlad Archer MD Unavailable Angela Kuo MD Primary Care Provider + [phone] Angel Cadena MD Unavailable [phone] Chase Tong DDS Unavailable [phone] Jeffy Chandler MD Unavailable Angela Kuo MD Unavailable [phone] Encounter Details Date Type Department Care Team (Late st Contact Info) Description 04/30/2021 Scanned Document [facility] Heart & Vascular [place] [address] [address] Cardiology, Scan Social History Tobacco Use Types [...] Not on file Not on fi le COVID-19 Exposure Response Date Recorded In the last month, have you been in contact with someone who was confirmed or suspected to have Coronavirus / COVID-19? No / Unsure 05/01/2021 10:27 AM EST documented as of this encounter Plan of Treatment Upcoming Encounters Date Type Department Care Team (Late st Contact Info) Description 04/26/2025 9:15 AM EST Office Visit [facility] 100 [facility] 101 [place] [address] Angela Kuo MD [address] [address] 07/31/2025 10:30 AM EDT Office Visit [facility] Heart & Vascular [place] 7 [facility] 201 [place] [address] Jeffy Chandler MD [address] [place] [address] A [place], [place] [phone] documented as of this encounter Visit Diagnoses Not on filedocumented in this encounter Care Teams Performance Reporter Relationship Specialty Start Date End Date Angela Kuo MD [address] [address] PCP - General Internal Medicine 12/14/18 Angela Kuo MD [address] [address] PCP - Cigna Commercial Attributed 01/23/24 08/21/24 Vlad Archer MD Racecar Driver Cardiovascular Disease 09/07/18 Angel Cadena MD [address] [place] [address] 919 [place] [address] Consulting Provider Surgery, Cardiac 04/07/19 Chase Tong DDS [address] [place] [address] Dentist Dentistry 04/07/19 Jeffy Chandler MD [address] [place] [address] Primary Racecar Driver Cardiovascular Disease 05/14/21 documented as of this encounter
--- OUTSIDE RECORDS SUMMARY | 2025-01-31 18:42 | XMS_ITS | Encounter Summary ---
Author Organization [facility] Address 100 [place] [address] Care Team Providers Care Title I Coordinator Name Role Phone Vlad Archer MD Unavailable Angela Kuo MD Primary Care Provider [phone] Angel Cadena MD Unavailable Chase Tong DDS Unavailable Jeffy Chandler MD Unavailable Angela Kuo MD Unavailable [phone] Encounter Details Date Type Department Care Team (Late st Contact Info) Description 07/15/2023 Scanned Document [facility] Department of Allergy [place] [address] [facility] [address] [place] [address] Jimena Vásquez APRN [address] [facility] [address] [place] [address] Social History Tobacco Use Types Packs/Day Years [...] 04/26/2025 9:15 AM EST Office Visit [facility] [address] [place] [address] Angela Kuo MD [address] [place] [address] 07/31/2025 10:30 AM EDT Office Visit [facility] Heart & Vascular [place] [facility] [place] [address] Jeffy Chandler MD [address] [place] [address] documented as of this encounter Procedures Procedure Name Priority Date/Time Associated Diagnosis Comments LAB RESULT 07/15/2023 5:07 AM EST documented in this encounter Results * LAB RESULT (07/15/2023 5:07 AM EST) Jimena Vásquez DETENTION WORKER HX AMB PROCEDURES Final Resu lt documented in this encounter Visit Diagnoses Not on filedocumented in this encounter Care Teams Title I Coordinator Relationship Specialty Start Date End Date Angela Kuo MD [address] [place] [address] PCP - General Internal Medicine 12/14/18 Angela Kuo MD [address] [place] [address] PCP - Cigna Commercial Attributed 01/23/24 08/21/24 Vlad Archer MD Service Desk Analyst Cardiovascular Disease 09/07/18 Angel Cadena MD [address] [address] Consulting Provider Surgery, Cardiac 04/07/19 Chase Tong DDS 250 [place] [address] Dentist Dentistry 04/07/19 Jeffy Chandler MD 420 [place] [address] Primary Service Desk Analyst Cardiovascular Disease 05/14/21 documented as of this encounter
--- OUTSIDE RECORDS SUMMARY | 2025-01-31 18:42 | XMS_ITS | Encounter Summary ---
Author Organization [facility] Address 100 [place] [address] Care Team Providers Care Cashier General Name Role Phone Bakari Pulido MD Primary Care Provider [phone] Angela Kuo MD Primary Care Provider [phone] Vlad Archer MD Unavailable Angel Cadena MD Primary Care Provider [phone] Angela Kuo MD Primary Care Provider [phone] Angel Cadena MD Unavailable Chase Tong DDS Unavailable Alessandra Nelson RN Unavailable Jeffy Chandler MD Unavailable Angela Kuo MD Unavailable [phone] Encounter Details Date Type Department Care Team (Late st Contact Info) Description 06/27/2018 Scanned Document [address] [place] [address] Primary Care, Scan Social History [...] Description 04/26/2025 9:15 AM EST Office Visit [facility] [address] [place] [address] Angela Kuo MD [address] [place] [address] 07/31/2025 10:30 AM EDT Office Visit [facility] Heart & Vascular [place] [address] [place] [address] Jeffy Chandler MD [address] [place] [address] [place] [address] documented as of this encounter Visit Diagnoses Not on filedocumented in this encounter Care Teams Cashier General Relationship Specialty Start Date End Date Bakari Pulido MD PCP - General Internal Medicine 05/03/18 08/21/18 Angela Kuo MD [address] [place] [address] PCP - General Internal Medicine 08/22/18 09/25/18 Angel Cadena MD 85 [facility] 919 [place] [address] PCP - General Surgery, Cardiac 09/26/18 12/13/18 Angela Kuo MD [address] [place] [address] PCP - General Internal Medicine 12/14/18 Angela Kuo MD [address] [place] [address] PCP - Cigna Commercial Attributed 01/23/24 08/21/24 Vlad Archer MD [address] [place] [address] Back Sewer Cardiovascular Disease 09/07/18 Angel Cadena MD [address] [address] Consulting Provider Surgery, Cardiac 04/07/19 Chase Tong DDS [address] [facility] [place] [address] Dentist Dentistry 04/07/19 Alessandra Nelson, JASIEL [address] [place] [address] ICP Transition Business Development Representative 04/18/19 03/18/21 Jeffy Chandler MD 420 [place] [address] Primary Back Sewer Cardiovascular Disease 05/14/21 documented as of this encounter
--- OUTSIDE RECORDS SUMMARY | 2025-01-31 18:42 | XMS_ITS | Encounter Summary ---
Author Organization [facility] Address 100 [place] [address] Care Team Providers Care Custom Home Installer Name Role Phone Vlad Archer MD Unavailable Angela Kuo MD Primary Care Provider [phone] Angel Cadena MD Unavailable [phone] Chase Tong DDS Unavailable Alessandra Nelson RN Unavailable Jeffy Chandler MD Unavailable Angela Kuo MD Unavailable [phone] Encounter Details Date Type Department Care Team (Late st Contact Info) Description 03/10/2019 Scanned Document [address] [place] [phone] Angela Kuo MD 100 [facility] [address] [place] [address] Social History Tobacco Use Types Packs/Day Years [...] Description 04/26/2025 9:15 AM EST Office [facility] [address] [place] [address] Angela Kuo MD 100 [facility] [address] [place] [address] 07/31/2025 10:30 AM EDT Office Visit [facility] Heart & Vascular [place] 7 [facility] 201 [place] [address] Jeffy Chandler MD [address] [place] [address] documented as of this encounter Visit Diagnoses Not on filedocumented in this encounter Care Teams Custom Home Installer Relationship Specialty Start Date End Date Angela Kuo MD 100 [facility] [address] [place] [address] PCP - General Internal Medicine 12/14/18 Angela Kuo MD 100 [facility] [address] [place] [address] PCP - Cigna Commercial Attributed 01/23/24 08/21/24 Vlad Archer MD Machine Tank Operator Cardiovascular Disease 09/07/18 Angel Cadena MD [address] [place] [address] 919 [place] [address] Consulting Provider Surgery, Cardiac 04/07/19 Chase Tong DDS [address] [address] Dentist Dentistry 04/07/19 Alessandra Nelson, JASIEL [address] 2nd [place] [address] ICP Transition Cops 04/18/19 03/18/21 Jeffy Chandler MD [address] [place], [place] [address] [place] [address] Primary Machine Tank Operator Cardiovascular Disease 05/14/21 documented as of this encounter
--- OUTSIDE RECORDS SUMMARY | 2025-01-31 18:42 | XMS_ITS | Encounter Summary ---
Author Organization [facility] Address [address] [place] [address] Care Team Providers Care Fur Matcher Name Role Phone Vlad Archer MD Unavailable Angela Kuo MD Primary Care Provider [phone] Angel Cadena MD Unavailable [phone] Chase Tong DDS Unavailable Jeffy Chandler MD Unavailable Angela Kuo MD Unavailable [phone] Encounter Details Date Type Department Care Team (Late st Contact Info) Description 07/17/2022 Orders Only [facility] Endocrinology [place] 100 [facility] [address] [place] [address] Angela Kuo MD [address] [place] [address] Aortic valve disorder (Primary Dx) Social History Tobacco Use Types [...] Description 04/26/2025 9:15 AM EST Office Visit [facility] 100 [facility] 101 [place] [address] Angela Kuo MD 100 [facility] 101 [place] [address] 07/31/2025 10:30 AM EDT Office Visit [facility] Heart & Vascular [place] 7 [facility] 201 [place] [address] Jeffy Chandler MD [address] [place] [address] [phone] documented as of this encounter Visit Diagnoses Diagnosis Aortic valve disorder- Primary Aortic valve disorders documented in this encounter Care Teams Fur Matcher Relationship Specialty Start Date End Date Angela Kuo MD [address] [address] PCP - General Internal Medicine 12/14/18 Angela Kuo MD 100 [facility] 101 [place] [address] PCP - Cigna Commercial Attributed 01/23/24 08/21/24 Vlad Archer MD Odd Ticket Clerk Cardiovascular Disease 09/07/18 Angel Cadena MD [address] [place] [address] 919 [place] [address] Consulting Provider Surgery, Cardiac 04/07/19 Chase Tnog DDS [address] [place] [address] Dentist Dentistry 04/07/19 Jeffy Chandler MD [facility] [place] [address] Primary Odd Ticket Clerk Cardiovascular Disease 05/14/21 documented as of this encounter
--- OUTSIDE RECORDS SUMMARY | 2025-01-31 18:42 | XMS_ITS | Encounter Summary ---
Author Organization [facility] Address [address] [place] [address] Care Team Providers Care Bolting Machine Operator Name Role Phone Vlad Archer MD Unavailable Angela Kuo MD Primary Care Provider [phone] Angel Cadena MD Unavailable Chase Tong DDS Unavailable [phone] Jeffy Chandler MD Unavailable Angela Kuo MD Unavailable [phone] Encounter Details Date Type Department Care Team (Latest Contact Info) Description 02/11/2024 Scanned Document [address] [place] [phone] Angela Kuo MD [address] [place] [address] [address] [place] [address] Hypercholesterolemia (Primary Dx); Anticoagulated on Coumadin Social History Tobacco Use Types Packs/Day Years [...] Description 04/26/2025 9:15 AM EST Office Visit [facility] [address] [place] [address] Angela Kuo MD [address] [facility] [address] [place] [address] 07/31/2025 10:30 AM EDT Office Visit [facility] & Vascular [place] [address] [place] [phone] Jeffy Chandler MD [address] [place] [address] [place] [address] documented as of this encounter Procedures Procedure Name Priority Date/Time Associated Diagnosis Comments LIPID PANEL REFLEX DIRECT LDL Routine 03/15/2024 10:40 AM EDT Hypercholesterolem ia PROTIME-INR Routine 03/15/2024 10:40 AM EDT Anticoagulated on Coumadin COMPREHENSIVE METABOLIC PANEL Routine 03/15/2024 10:40 AM EDT Hypercholesterolem ia documented in this encounter Results * (ABNORMAL) Comprehensive Metabolic Panel (03/15/2024 10:40 AM EDT) Glucose 139(H) 65 - 99 mg/dL [facility] Comment: Fasting reference interval For someone without known diabetes, a glucose value >125 mg/dL indicates that they may have diabetes and this should be confirmed with a follow-up test. Blood Urea Nitrogen (BUN) 17 7 - 25 mg/dL [facility] Creatinine 1.15 0.70 - 1.35 mg/dL [facility] Creatinine w/ eGFR 71 > OR = 60 mL/min/1. 73m2 [facility] BUN/Creatinine Ratio SEE NOTE: 6 - 22 (calc) [facility] Comment: Not Reported: BUN and Creatinine are within reference range. Sodium 140 135 - 146 mmol/L [facility] Potassium 4.0 3.5 - 5.3 mmol/L [facility] Chloride 106 98 - 110 mmol/L [facility] CO2 27 20 - 32 mmol/L [facility] Calcium 9.4 8.6 - 10.3 mg/dL [facility] Protein, Total 6.5 6.1 - 8.1 g/dL [facility] Albumin 4.1 3.6 - 5.1 g/dL [facility] Globulin 2.4 1.9 - 3.7 g/dL (calc) [facility] Albumin/Globuli n Ratio 1.7 1.0 - 2.5 (calc) [facility] Bilirubin, Total 1.2 0.2 - 1.2 mg/dL [facility] Alkaline Phosphatase 69 35 - 144 U/L [facility] Aspartate Aminotrans (AST) 12 10 - 35 U/L [facility] Alanine Aminotrans (ALT) 13 9 - 46 U/L [facility] Blood 03/15/2024 10:4 0 AM EDT 03/15/2024 10:40 AM EDT us Angela Kuo MD LAB BLOOD ORDERABLES Final Result [facility] [address] [place] [phone] * (ABNORMAL) PROTIME-INR (03/15/2024 10:40 AM EDT) INR 2.0(H) [facility] 00[facility] Comment: Reference Range 0.9-1.1 Moderate-intensity Warfarin Therapy 2.0-3.0 Higher-intensity Warfarin Therapy 3.0-4.0 Prothrombin Time (PT) 20.4(H) 9.0 - 11.5 sec Lil Monkey Butt [facility] 0091 Comment: For additional information, please refer to http://education.Lumetrics/faq/TUW746 (This link is being provided for informational/ educational purposes only.) Blood 03/15/2024 10:4 0 AM EDT 03/15/2024 10:40 AM EDT Angela Kuo MD LAB BLOOD ORDERABLES Final Result [facility] [address] [place] [address] * (ABNORMAL) Lipid Panel Reflex Direct LDL (03/15/2024 10:40 AM EDT) Pathologist [facility] Cholesterol, Total 221(H) <200 mg/dL [facility] Cholesterol, HDL 43 > OR = 40 mg/dL [facility] Triglycerides 206(H) <150 mg/dL [employer] [facility] Comment: If a non-fasting specimen was collected, consider repeat triglyceride testing on a fasting specimen if clinically indicated. Rebel et al. J. of Clin. Lipidol. 2015;9:129-169. LDL Cholesterol 144(H) mg/dL (calc) [facility] Comment: Reference range: <100 Desirable range <100 mg/dL for primary prevention; <70 mg/dL for patients with CHD or diabetic patients with > or = 2 CHD risk factors. LDL-C is now calculated using the Brian calculation, which is a validated novel method providing better accuracy than the Friedewald equation in the estimation of LDL-C. Dontae SS et al. MARIELLE. 2013;310(19): 8733-2467 (http://education.Telcare.uBeam/faq/VQZ034) Cholesterol/HDL Ratio 5.1(H) <5.0 (calc) [facility] Non HDL Chol. (LDL+VLDL) 178(H) <130 mg/dL (calc) [facility] Comment: For patients with diabetes plus 1 major ASCVD risk factor, treating to a non-HDL-C goal of <100 mg/dL (LDL-C of <70 mg/dL) is considered a therapeutic option. Blood Blood specimen / Unknown 03/15/2024 10:40 AM EDT 03/15/2024 10:40 AM EDT Angela Kuo MD LAB BLOOD ORDERABLES Final Result [facility] [address] [place] [phone] documented in this encounter Visit Diagnoses Diagnosis Hypercholesterolemia- Primary Pure hypercholesterolemia Anticoagulated on Coumadin documented in this encounter Care Teams Bolting Machine Operator Relationship Specialty Start Date End Date Angela Kuo MD [address] [place] [address] PCP - General Internal Medicine 12/14/18 Angela Kuo MD [address] [place] [address] PCP - Cigna Commercial Attributed 01/23/24 08/21/24 Vlad Archer MD Fondant Machine Operator Cardiovascular Disease 09/07/18 Angel Cadena MD [address] [place] [address] Consulting Provider Surgery, Cardiac 04/07/19 Chase Tong DDS [address] [place] [address] Dentist Dentistry 04/07/19 Jeffy Chandler MD [address] [place] [address] Primary Fondant Machine Operator Cardiovascular Disease 05/14/21 documented as of this encounter
--- OUTSIDE RECORDS SUMMARY | 2025-01-31 18:42 | XMS_ITS | Encounter Summary ---
Author Organization [facility] Address [address] [place] [address] Care Team Providers Care Brand Strategist Name Role Phone Vlad Archer MD Unavailable Angela Kuo MD Primary Care Provider + [phone] Angel Cadena MD Unavailable [phone] Chase Tong DDS Unavailable [phone] Jeffy Chandler MD Unavailable Angela Kuo MD Unavailable [phone] Encounter Details Date Type Department Care Team (Late st Contact Info) Description 05/07/2023 Scanned Document [facility] [address] [address] Cardiology, Scan Social History Tobacco [...] Description 04/26/2025 9:15 AM EST Office Visit [facility] [place] [address] [place] [address] Angela Kuo MD [address] [place] [address] 07/31/2025 10:30 AM EDT Office Visit [facility] Heart & [facility] [place] 7 [facility] 201 [place] [address] Jeffy Chandler MD [address] [facility] [place], [place] [address] [phone] documented as of this encounter Visit Diagnoses Not on filedocumented in this encounter Care Teams Brand Strategist Relationship Specialty Start Date End Date Angela Kuo MD [address] [facility] [address] [place] [address] PCP - General Internal Medicine 12/14/18 Angela Kuo MD [address] [facility] [address] [place] [address] PCP - Cigna Commercial Attributed 01/23/24 08/21/24 Vlad Archer MD Photostat Operator Cardiovascular Disease 09/07/18 Angel Cadena MD 85 [facility] [address] [place] [address] Consulting Provider Surgery, Cardiac 04/07/19 Chase Tong DDS [address] [place] [address] Dentist Dentistry 04/07/19 Jeffy Chandler MD [address] [place] [address] Primary Photostat Operator Cardiovascular Disease 05/14/21 documented as of this encounter
--- OUTSIDE RECORDS SUMMARY | 2025-01-31 18:42 | XMS_ITS | Encounter Summary ---
Author Organization [facility] Address [address] [place] [address] Care Team Providers Care Wash Tub Machine Operator Name Role Phone Vlad Archer MD Unavailable Angela Kuo MD Primary Care Provider [phone] Angel Cadena MD Unavailable [phone] Chase Tong DDS Unavailable [phone] Jeffy Chandler MD Unavailable Encounter Details Date Type Department Care Team (Latest Contact Info) Description 01/30/2025 Travel Social History Tobacco Use Types Packs/Day Years Used Date Smoking Tobacco: Never Smokeless Tobacco: Never Alcohol Use Standard Drinks/Week Comments Not Currently 1 (1 standard drink = 0.6 oz pur e alcohol) social [facility] Utilities Answer Date Recorded In the past 12 months has [employer], gas, oil, or water [employer] threatened to shut off services in your home? No 12/08/2024 Social Connection and Isolat ion Panel [NHANES] Answer Date Recorded In a typical week, how many times do you talk on the phone with family, friends, or neighbors? More than three times a week 12/08/2024 Frequency of Social Gatherin gs with Friends and Family Not on file 12/08/2024 Attends [employer] Services Not on file 12/08 Active Member [...] any time in the past 12 m [facility], were you homeless or living in a half-way (including now)? No 12/08/2024 Physical Activity Answer [...] [facility] 100 [facility] 101 [place] [phone] Angela Kuo MD [address] [place] [id number] 07/31/2025 10:30 AM EDT Office Visit [facility] Heart [facility] [place] 7 [facility] 201 [place] [phone] Jeffy Chandler MD [address] [place] [address] documented as of this encounter Visit Diagnoses Not on filedocumented in this encounter Care Teams Wash Tub Machine Operator Relationship Specialty Start Date End Date Angela Kuo MD 100 [place] [address] PCP - General Internal Medicine 12/14/18 Vlad Archer MD Coppersmith Helper Cardiovascular Disease 09/07/18 Angel Cadena MD [address] [place] [address] [address] [place] [address] Consulting Provider Surgery, Cardiac 04/07/19 Chase Tong DDS [address] [place] [address] Dentist Dentistry 04/07/19 Jeffy Chandler MD [address] [place] [address] Primary Coppersmith Helper Cardiovascular Disease 05/14/21 documented as of this encounter
--- OUTSIDE RECORDS SUMMARY | 2025-01-31 18:42 | XMS_ITS | Encounter Summary ---
Author Organization [facility] Address [address] [place] [address] Care Team Providers Care Shook Machine Operator Name Role Phone Vlad Archer MD Unavailable Angela Kuo MD Primary Care Provider [phone] Angel Cadena MD Unavailable [phone] Chase oTng DDS Unavailable Alessandra Nelson RN Unavailable Jeffy Chandler MD Unavailable Angela Kuo MD Unavailable [phone] Reason for Visit * Reason Comments Medication Refill Encounter Details Date Type Department Care Team (Late st Contact Info) Description 12/15/2019 Refill [facility] 100 [facility] [address] [place] [phone] Angela Kuo MD [address] [facility] [address] [place] [address] Benign essential hypertension Social History Tobacco Use Types Packs/Day Years [...] Description 04/26/2025 9:15 AM EST Office Visit [facility] [address] [place] [address] Angela Kuo MD [address] [place] [address] 07/31/2025 10:30 AM EDT Office Visit [facility] [place] [facility] 7 [facility] 201 [place] [phone] Jeffy Chandler MD [address] [place] [address] documented as of this encounter Visit Diagnoses Diagnosis Benign essential hypertension Essential hypertension, benign documented in this encounter Care Teams Shook Machine Operator Relationship Specialty Start Date End Date Angela Kuo MD [address] [facility] [address] [place] [address] PCP - General Internal Medicine 12/14/18 Angela Kuo MD [address] [place] [address] PCP - Cigna Commercial Attributed 01/23/24 08/21/24 Vlad Archer MD Display Decorator Cardiovascular Disease 09/07/18 Angel Cadena MD 85 [facility] 919 [place] [address] Consulting Provider Surgery, Cardiac 04/07/19 Chase Tong DDS [address] [place] [address] Dentist Dentistry 04/07/19 Alessandra Nelson, JASIEL 17 [facility] 2nd [place] [address] ICP Transition Rope Walker 04/18/19 03/18/21 Jeffy Chandler MD 420 [place] [address] Primary Display Decorator Cardiovascular Disease 05/14/21 documented as of this encounter
--- OUTSIDE RECORDS SUMMARY | 2025-01-31 18:42 | XMS_ITS | Encounter Summary ---
Author Organization [facility] Address [address] [place] [address] Care Team Providers Care Wholesale Loan Processor Name Role Phone Bakari Pulido MD Primary Care Provider Angela Kuo MD Primary Care Provider [phone] Vlad Archer MD Unavailable Angel Cadena MD Primary Care Provider Angela Kuo MD Primary Care Provider [phone] Angel Cadena MD Unavailable Chase Tong DDS Unavailable [phone] Alessandra Nelson RN Unavailable Jeffy Chandler MD Unavailable Angela Kuo MD Unavailable [phone] Reason for Visit * Reason Comments Medication Refill Encounter Details Date Type Department Care Team (Late st Contact Info) Description 07/02/[address] [place] [address] Bakari Pulido MD [address] [place], [place] [phone] Benign essential hypertension Social History Tobacco Use [...] Description 04/26/2025 9:15 AM EST Office Visit [facility] [place] 100 [facility] 101 [place] [address] Angela Kuo MD 100 [place] [address] 07/31/2025 10:30 AM EDT Office Visit [facility] [place] 7 [facility] 201 [place] [phone] Jeffy Chandler MD [address] [place] [address] documented as of this encounter Visit Diagnoses Diagnosis Benign essential hypertension Essential hypertension, benign documented in this encounter Care Teams Wholesale Loan Processor Relationship Specialty Start Date End Date Bakari Pulido MD PCP - General Internal Medicine 05/03/18 08/21/18 Angela Kuo MD 100 [facility] 101 [place] [address] PCP - General Internal Medicine 08/22/18 09/25/18 Angel Cadena MD [address] [address] PCP - General Surgery, Cardiac 09/26/18 12/13/18 Angela Kuo MD [address] [place] [address] PCP - General Internal Medicine 12/14/18 Angela Kuo MD [address] [place] [address] PCP - Cigna Commercial Attributed 01/23/24 08/21/24 Vlad Archer MD [address] [place] [address] Public Health Teacher Cardiovascular Disease 09/07/18 Angel Cadena MD [address] [address] Consulting Provider Surgery, Cardiac 04/07/19 Chase Tong DDS 250 [place] [address] Dentist Dentistry 04/07/19 Alessandra Nelson, JASIEL [address]nd [place] [address] ICP Transition Knit Tubing Dyer 04/18/19 03/18/21 Jeffy Chandler MD 420 [place] [address] Primary Public Health Teacher Cardiovascular Disease 05/14/21 documented as of this encounter
--- OUTSIDE RECORDS SUMMARY | 2025-01-31 18:42 | XMS_ITS | Clinical Summary ---
Author Organization [facility] Address 201 [facility] [place] [address] Phone Care Team Providers Care Appliquer Name Role Phone Angela Kuo MD Primary Care Provider [phone] Allergies Active Allergy Reactions Criticality Noted Date [...] Depression Screening 05/24/2024 COVID-19 Vaccine ( season) 2025 03/07/2024, 02/09/2023, 02/17/2022, Additional history exists Influenza [...] LAB CHEMISTRY METHOD 06/30/2024 8:31 AM EST [facility] Potassium 4.3 3.5 - 5.1 mmol/L LAB CHEMISTRY METHOD 06/30/2024 8:31 AM EST [facility] Chloride 107 98 - 107 mmol/L LAB CHEMISTRY METHOD 06/30/2024 8:31 AM EST [facility] CO2 17(L) 24 - 32 mmol/L LAB CHEMISTRY METHOD 06/30/2024 8:31 AM EST [facility] Anion [place] 13 5 - 14 LAB CHEMISTRY METHOD 06/30/2024 8:31 AM EST [facility] Glucose 179(H) 70 - 99 mg/dL LAB CHEMISTRY METHOD 06/30/2024 8:31 AM EST [facility] BUN 30(H) 9 - 20 mg/dL LAB CHEMISTRY METHOD 06/30/2024 8:31 AM EST [facility] Creatinine 1.60(H) 0.70 - 1.30 mg/dL LAB CHEMISTRY METHOD 06/30/2024 8:31 AM EST [facility] eGFR 48(L) >=60 mL/min/1. 73m2 LAB CHEMISTRY METHOD 06/30/2024 8:31 AM EST [facility] Comment:Calculation based on the Chronic Kidney Disease Epidemiology Collaboration (CKD-EPI) equation refit without adjustment for race. BUN/Creatinine Ratio 18.8 12.0 - 20.0 LAB CHEMISTRY METHOD 06/30/2024 8:31 AM EST [facility] Calcium 9.0 8.4 - 10.2 mg/dL LAB CHEMISTRY METHOD 06/30/2024 8:31 AM EST [facility] Blood Venous blood specimen / Unknown Venipuncture / Unknown 06/30/2024 7:11 AM EST 06/30/2024 7:58 AM EST us Sophie Cathie Ruiz DO LAB BLOOD ORDERABLES Final Resul t [facility] [address] [place] [address], [place] [phone] from Last 3 Months or Most Recently Relevant to Health Maintenance [facility] Advance Directives * Full Code [...] currently active code status orders. Care Teams Appliquer Relationship Specialty Start Date End Date Angela Kuo MD [address] [place] [address] PCP - General 05/24/23
--- OUTSIDE RECORDS SUMMARY | 2025-01-31 18:42 | XMS_ITS | Encounter Summary ---
Author Organization [facility] Address [address] [place] [address] Care Team Providers Care Communication And Outreach Manager Name Role Phone Vlad Archer MD Unavailable Angela Kuo MD Primary Care Provider [phone] Angel Cadena MD Unavailable [phone] Chase Tong DDS Unavailable [phone] Jeffy Chandler MD Unavailable Angela Kuo MD Unavailable [phone] Reason for Visit * Reason Comments Appointment Encounter Details Date Type Department Care Team (Late st Contact Info) Description 06/16/[address] [place] [phone] Angela Kuo MD [address] [place] [address] [address] [place] [address] Appointment Social History Tobacco Use Types Packs/Day Years [...] fi le documented as of this encounter Miscellaneous Notes * Telephone Encounter - Ewa Montaño - 06/16/2023 2:53 PM EST And sent mychart to r/s appt provider out sick documented in this encounter Plan of Treatment Upcoming Encounters Date Type Department Care Team (Late st Contact Info) Description 04/26/2025 9:15 AM EST Office Visit [facility] [address] [place] [address] Angela Kuo MD 100 [facility] [address] [place], [place] [phone] 07/31/2025 10:30 AM EDT Office Visit [facility] Heart & Vascular [place] 7 [facility] 201 [place] [phone] Jeffy Chandler MD [address] [place] [address] [place] [address] documented as of this encounter Visit Diagnoses Not on filedocumented in this encounter Care Teams Communication And Outreach Manager Relationship Specialty Start Date End Date Angela Kuo MD [address] [place] [address] PCP - General Internal Medicine 12/14/18 Angela Kuo MD [address] [place] [address] PCP - Cigna Commercial Attributed 01/23/24 08/21/24 Vlad Archer MD Aircraft Load Controller Cardiovascular Disease 09/07/18 Angel Cadena MD [address] [address] Consulting Provider Surgery, Cardiac 04/07/19 Chase Tong DDS [address] [place] [address] Dentist Dentistry 04/07/19 Jeffy Chandler MD 420 [place] [address] Primary Aircraft Load Controller Cardiovascular Disease 05/14/21 documented as of this encounter
--- OUTSIDE RECORDS SUMMARY | 2025-01-31 18:42 | XMS_ITS | Encounter Summary ---
Author Organization [facility] Address [address] [place] [address] Care Team Providers Care Theatre Professor Name Role Phone Vlad Archer MD Unavailable Angela Kuo MD Primary Care Provider [phone] Angel Cadena MD Unavailable Chase Tong DDS Unavailable Alessandra Nelson RN Unavailable Jeffy Chandler MD Unavailable Angela Kuo MD Unavailable [phone] Encounter Details Date Type Department Care Team (Late st Contact Info) Description 05/01/2019 Scanned Document [facility] Heart & Vascular [place] [address] [place] [address] Vlad Archer MD [address] [facility] 262 [place] [address] Social History Tobacco Use Types Packs/Day Years [...] 04/26/2025 9:15 AM EST Office Visit [facility] 100 [facility] 101 [place] [address] Angela Kuo MD [address] [address] 07/31/2025 10:30 AM EDT Office Visit [facility] Heart & [facility] [place] 7 [facility] 201 [place] [address] Jeffy Chandler MD [address] [place] [address] [place] [address] documented as of this encounter Visit Diagnoses Not on filedocumented in this encounter Care Teams Theatre Professor Relationship Specialty Start Date End Date Angela Kuo MD [address] [address] PCP - General Internal Medicine 12/14/18 Angela Kuo MD [address] [address] PCP - Cigna Commercial Attributed 01/23/24 08/21/24 Vlad Archer MD Auto Transmission Specialist Cardiovascular Disease 09/07/18 Angel Cadena MD [address] [place] [address] 919 [place] [address] Consulting Provider Surgery, Cardiac 04/07/19 Chase Tong DDS [address] [place] [address] Dentist Dentistry 04/07/19 Alessandra Nelson, RN [address] 2[address] Floor [place] [id number] ICP Transition Frame Operator 04/18/19 03/18/21 Jeffy Chandler MD [address] [place] [address] Primary Auto Transmission Specialist Cardiovascular Disease 05/14/21 documented as of this encounter
--- OUTSIDE RECORDS SUMMARY | 2025-01-31 18:42 | XMS_ITS | Clinical Summary ---
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) use of anticoagulants 2018 Aortic valve [...] file Medical Devices Not on file [place] [address] [place] [address] PPO BLUE CROSS OUT OF STATE PPO [facility] OUT OF [facility] PPO BLUE CROSS OUT OF STATE PPO BLUE [employer]OSS OUT OF STATE PPO BLUE CROSS OUT OF STATE PPO BLUE [employer] OUT OF [facility] PPO [employer] OUT [facility] PPO Care Teams Log Scaler Relationship Specialty Start Date End Date Unknown, Unknown, PCP - General 04/17/19 Additional Source Comments The information contained in this document represents components of the legal health record. It is not the complete legal health record.[facility]
--- OUTSIDE RECORDS SUMMARY | 2025-01-31 18:42 | XMS_ITS | Encounter Summary ---
Author Organization [facility], [facility] Address [address] [place] [address] Care Team Providers Care Director Of Maternity Services Name Role Phone Vlad Archer MD Unavailable Angela Kuo MD Primary Care Provider [phone] Angel Cadena MD Unavailable [phone] Chase Tong DDS Unavailable [phone] Alessandra Nleson RN Unavailable Jeffy Chandler MD Unavailable Angela Kuo MD Unavailable [phone] Reason for Visit * Reason Comments Medication Refill Encounter Details Date Type Department Care Team (Late st Contact Info) Description 10/21/2020 Refill [facility] [place] [address] [place] [phone] Vlad Archer MD [address] [address] Medication Refill Social History Tobacco Use Types Packs/Day Years [...] have Coronavirus / COVID-19? No / Unsure 10/01/2020 9:26 AM EDT documented as of this encounter Miscellaneous Notes * Telephone Encounter - Marie Pham RN - 10/22/2020 9:08 AM EDT Please call to see if patient is establishing care with us from Dr Archer, is so - please schedule appt, if not then PCP should fill meds documented in this encounter Plan of Treatment Upcoming Encounters Date Type Department Care Team (Late st Contact Info) Description 04/26/2025 9:15 AM EST Office Visit [facility] [place] [address] [facility] [address] [place] [address] Angela Kuo MD 100 [facility] [address] [place] [address] 07/31/2025 10:30 AM EDT Office Visit [facility] [place] 7 [facility] [address] [place] [address] Jeffy Chandler MD [address] [place] [address] [place] [address] documented as of this encounter Visit Diagnoses Diagnosis S/P AVR documented in this encounter Care Teams Director Of Maternity Services Relationship Specialty Start Date End Date Angela Kuo MD 100 [facility] [address] [place] [address] PCP - General Internal Medicine 12/14/18 Angela Kuo MD [address] [place] [address] PCP - [employer] Attributed 01/23/24 08/21/24 Vlad Archer MD Jewel Hole Finish Opener Cardiovascular Disease 09/07/18 Angel Cadena MD [address] [address] Consulting Provider Surgery, Cardiac 04/07/19 Chase Tong DDS [address] [place] [address] Dentist Dentistry 04/07/19 Alessandra Nelson, JASIEL [address] [place] [address] ICP Transition Crew Clerk 04/18/19 03/18/21 Jeffy Chandler MD [address] [place] [address] Primary Jewel Hole Finish Opener Cardiovascular Disease 05/14/21 documented as of this encounter
--- OUTSIDE RECORDS SUMMARY | 2025-01-31 18:42 | XMS_ITS | Encounter Summary ---
Author Organization [facility] Address [address] [place] [address] Care Team Providers Care Supervisor [employer] Name Role Phone Vlad Archer MD Unavailable Angel Cadena MD Primary Care Provider Angela Kuo MD Primary Care Provider [phone] Angel Cadena MD Unavailable [phone] Chase Tong DDS Unavailable Alessandra Nelson RN Unavailable Jeffy Chandler MD Unavailable Angela Kuo MD Unavailable Reason for Visit * Reason Comments Medication Refill Encounter Details Date Type Department Care Team (Late st Contact Info) Description 11/30/2018 Refill [facility] 100 [facility] [address] [place] [phone] Akanksha De La Cruz APRN 100 [facility] [address] [place] [address] HTN (hypertension), benign; Hypercholesteremia; Gout, unspecified cause, unspecified chronicity, unspecified site Social History Tobacco Use Types Packs/Day Years [...] Description 04/26/2025 9:15 AM EST Office Visit [facility] 100 [facility] [address] [place] [address] Angela Kuo MD [address] [address] 07/31/2025 10:30 AM EDT Office Visit [facility] [place] [facility] [address] [place] [phone] Jeffy Chandler MD [address] [place] [address] [place], [place] [address] [phone] documented as of this encounter Visit Diagnoses Diagnosis HTN (hypertension), benign Essential hypertension, benign Hypercholesteremia Pure hypercholesterolemia Gout, unspecified cause, unspecified chronicity, unspecified site documented in this encounter Care Teams Supervisor [employer] Relationship Specialty Start Date End Date Angel Cadena MD [address] [place] [address] [address] [place] [address] PCP - General Surgery, Cardiac 09/26/18 12/13/18 Angela Kuo MD [address] [place] [address] PCP - General Internal Medicine 12/14/18 Angela Kuo MD [address] [place] [address] PCP - [employer] Commercial Attributed 01/23/24 08/21/24 Vlad Archer MD Instrument Fitter Cardiovascular Disease 09/07/18 Angel Cadena MD 85 [facility] [address] [place] [address] Consulting Provider Surgery, Cardiac 04/07/19 Chase Tong, DDS [address] [place] [address] Dentist Dentistry 04/07/19 Alessandra Nelson, JASIEL [address] [facility] [address] [place] [address] ICP Transition Information Technology Advisor 04/18/19 03/18/21 Jeffy Chandler MD [address] [place] [address] Primary Instrument Fitter Cardiovascular Disease 05/14/21 documented as of this encounter
--- OUTSIDE RECORDS SUMMARY | 2025-01-31 18:42 | XMS_ITS | Clinical Summary ---
Author Organization [facility] Address [address] [place] [address] Care Team Providers Care Welder And Fitter Name Role Phone Angela Kuo MD Primary Care Provider [phone] Allergies Active Allergy Reactions Criticality Noted Date [...] 2004 Shingrix-Zoster Vaccine (1 of 2) 2009 Fall Risk Assessment 2024 Pneumococcal Vaccine (1 of 1 - PCV) 2024 COVID-19 Vaccine ( season) 2025 02/09/2023, 02/17/2022, 08/27/2021, Additional history exists Influenza Vaccine (#1) 2025 , 02/17/2022, 03/04/2021, [...] Advance Directives For more information, please contact: [phone] Latest Code Status on File Code Status Date Activated Date Inactivated Comments Full Code 05/24/2023 5:44 AM 05/25/2023 7:03 PM This co de status was ascertained in the following way: discussion with patient . Care Teams Welder And Fitter Relationship Specialty Start Date End Date Angela Kuo MD [address] [place] [address] PCP - General Internal Medicine 05/24/23
== END 2025-01-31 16:49 | disposition home or self-care (01) ==
LOC: HO.HKAE 16:18
PROVIDERS: PCP Internal Medicine; Visit Provider Internal Medicine Hypertension Specialist
DX: I12.9 Hypertensive chronic kidney disease with stage 1 through stage 4 chronic kidney disease, or unspecified chronic kidney disease (principal); N18.9 Chronic kidney disease, unspecified; G47.30 Sleep apnea, unspecified; N28.1 Cyst of kidney, acquired
CPT/HCPCS: 99214